=== PATIENT | female | born 1945 | race Caucasian/White ===

== ENCOUNTER 2024-02-21 03:59 | Inpatient (IN) ==
--- NOTE | 2024-02-21 04:13 | Emergency Department Note ---
Impression & Plan Partial small bowel obstruction ED Provider Note CHIEF COMPLAINT: Abdominal pain HISTORY OF PRESENTING ILLNESS: This 79-year-old female patient presents to the emergency department with her for evaluation of left lower quadrant abdominal pain that started at 2 AM. She denies any vomiting or diarrhea, but does have some mild nausea. She denies any urinary symptoms. She rates her discomfort as 4/10. No history of previous similar pain. No history of kidney stones. No history of diverticulitis. Her heart rate was elevated initially, but she took a metoprolol at home with improvement of her heart rate. She denies any fevers. Denies any chest pain or SOB. Denies history of chronic abdominal pain. She has had an appendectomy, hysterectomy (still has cervix), and surgery on her urethra before. She is on Eliquis for Afib. REVIEW OF SYSTEMS: See HPI for pertinent positives and pertinent negatives. ALLERGIES: NKDA MEDICATIONS: Eliquis, metoprolol, Synthroid PAST MEDICAL HISTORY: Afib, hypothyroidism, hysterectomy, appendectomy, surgery on her urethra PHYSICAL EXAM: VITALS: Vitals are noted on the nurse's note and reviewed by myself. GENERAL: Non toxic, no acute distress, non-diaphoretic. SKIN: Capillary refill <2 sec. EYES: PERRLA. EOMI. Conjunctivae without injection, sclerae without icterus. NOSE: Patent without discharge. MOUTH: Mucous membranes moist. Uvula midline. Airway patent. NECK: Supple without nuchal rigidity. HEART: Regular rate and rhythm without murmurs gallops or rubs. LUNGS: Clear to auscultation bilaterally without wheezes, rales or rhonchi. No retractions or accessory muscle use. ABDOMEN: Positive bowel sounds x 4. Normal tympanic percussion. Soft, tender to palpation mainly left lower quadrant, but also mildly in the left upper quadrant. No flank tenderness. No CVA tenderness. No masses or organomegaly. Gao sign negative. No guarding or rebound tenderness. No focal RLQ tenderness. MUSCULOSKELETAL: No gross musculoskeletal defects. NEURO: Patient was alert and oriented. No focal neurological deficits. DIFFERENTIAL DIAGNOSIS: Differential diagnosis includes hepatitis, pancreatitis, cholecystitis, cholelithiasis, appendicitis, kidney stone, pyelonephritis, UTI, gastritis, gastroenteritis, mesenteric adenitis, obstruction, constipation, hernia, abdominal abscess, perforation, diverticulitis, IBD, ischemic colitis, abdominal aortic aneurysm, , ectopic , ovarian cyst, ovarian torsion, acute salpingitis, or others. ED COURSE AND MEDICAL DECISION MAKING: HISTORY FROM INDEPENDENT HISTORIAN: Additional history obtained from the patient's MEDICATIONS GIVEN: 500 mL normal saline solution bolus. Tylenol 1000 mg IV. Zofran 4 mg IV. Morphine 4 mg IV. MONITOR: Continuous property assessment monitor: Order was placed for continuous property assessment monitor. Patient was placed on the property assessment monitor and continuous pulse ox. Patient was noted to be in normal sinus rhythm at an initial rate of 84 bpm per my interpretation. INTERPRETATION OF LABS: I interpreted the labs with full lab results as below in the lab section of this note. Pertinent lab results discussed in the MDM section below. INTERPRETATION OF IMAGING: Imaging studies were interpreted by myself and read by radiology as per the imaging section of this note. CT scan of the abdomen pelvis with IV contrast showed prominent small bowel loops with a probable region of ileus within the pelvis or early partial small bowel obstruction. There are additional chronic changes as well. CONSULTATIONS: On-call hospitalist MDM SUMMARY: The patient was seen during a time of extreme volume and extreme acuity. Nursing triage protocols were initiated with IV lock, labs, and/or imaging studies conducted by protocol in the triage area. The patient was initially evaluated in a triage room and then re-evaluated once they were taken back to an exam room. The patient started with abrupt onset of abdominal pain and nausea. The patient was given 500 mL normal saline solution bolus, IV Tylenol, and IV Zofran with improvement of her symptoms. She required morphine 4 mg IV later on in the stay for additional pain control. White blood cell count elevated at 14.02. Hemoglobin normal at 14.6. Platelet count normal at 263. BUN elevated at 25 and glucose 108, but CMP without significant abnormalities. Lipase was normal. Urinalysis with 1+ ketones, 1+ blood, and 3-[address] scan of the abdomen pelvis with IV contrast showed prominent small bowel loops with a probable region of ileus within the pelvis or early partial small bowel obstruction. There are additional chronic changes as well. I had a meaningful discussion about this patient with Dr. Summers who agrees with my assessment and the treatment plan. The patient will need admitted for her partial small bowel obstruction. The patient is not vomiting and her nausea has resolved. I do not feel that NG tube is needed at this time in the ER. I spoke with the on-call hospitalist who agreed to admit the patient for further evaluation and treatment. Please refer to their dictation for further details. The patient's care was transferred in stable condition. DIAGNOSIS: Partial small bowel obstruction Past Med/Surg History Problem List (Updated 02/21/24 @ 23:04 by Aspen Henry PA-C) Partial small bowel obstruction (Acute) Nondisplaced fracture of fifth left metatarsal bone (Acute) Dehydration (Acute) Hypokalemia (Acute) Nausea vomiting and diarrhea (Acute) Vomiting and diarrhea (Acute) Family History Mother Heart disease Social History Smoking Status: Former smoker Hx Alcohol Use: Yes Alcohol type: wine Hx Substance Use: No Preferred Language: Uzbek Cylinder Grinder Required: No Beliefs That Will Affect Care: None Current Living Situation: Spouse Current Living Situation Comment: 2 story house Feels Safe at Home: Yes Assistive Devices: Glasses Assistive Devices Comment: reading glasses Allergies Allergies Allergy/AdvReac Type Severity Reaction Status Date / Time No Known Allergies Allergy Unverified 04/27/15 09:28 Home Meds Home Medications Medication Instructions Recorded Confirmed apixaban 5 mg tablet (Eliquis) 5 mg PO BID 02/21/24 02/21/24 levothyroxine 50 mcg tablet 50 mcg PO UD 02/21/24 02/21/24 (Synthroid) levothyroxine 75 mcg tablet 75 mcg PO UD 02/21/24 02/21/24 (Synthroid) metoprolol succinate 25 mg 12.5 mg PO DAILY 02/21/24 02/21/24 tablet,extended release 24 hr Results & Data (ED) Vital Signs Vital Signs - 24 hr 02/21/24 04:02 02/21/24 05:30 Temperature 36.8 C Temperature Source Temporal Artery Scan Pulse Rate 82 Pulse Rate [Apical] 83 Pulse Rhythm [Apical] Regular Pulse Strength [Apical] Normal Respiratory Rate 16 18 Respiratory Effort / Characteristics Non-Labored Non-Labored Spontaneous Respiratory Depth Normal Normal Respiratory Pattern Regular Regular Blood Pressure 160/94 H Blood Pressure [Right Arm] 160/100 H Blood Pressure Mean 116 Blood Pressure Mean [Right Arm] 120 Blood Pressure Position [Right Arm] Sitting Pulse Oximetry 98 98 Oxygen Delivery Method Room Air Room Air Sepsis Recent Fever Within 48 Hours No Sepsis New/Unexplained Change in Mental Status N/A Sepsis Action Taken by Nursing No Action Required Laboratory Data 02/21/24 04:38 02/21/24 04:38 Lab Results 02/21/24 Range/Units 04:38 WBC 14.02 H (4.8-10.8) K/ul RBC 4.64 (4.20-5.40) M/uL Hgb 14.6 (12.0-16.0) g/dl Hct 44.5 (37.0-47.0) % MCV 95.9 (80.0-100.0) fL MCH 31.5 (25.0-34.0) pg MCHC 32.8 (32.0-36.0) g/dL RDW Std Deviation 40.8 (36.4-46.3) fL RDW Coeff of Susy 11.7 (11.5-14.5) % Plt Count 263 (130-400) K/uL MPV 10.2 (9.4-12.4) fL Immature Gran % (Auto) 0.4 % Neut % (Auto) 50.2 % Lymph % (Auto) 39.7 % Sibley % (Auto) 7.8 % Eos % (Auto) 1.3 % Baso % (Auto) 0.6 % Neut # (Auto) 7.04 H (1.40-6.50) K/uL Lymph # (Auto) 5.57 H (1.20-3.40) K/uL Sibley # (Auto) 1.09 H (0.11-0.59) K/uL Eos # (Auto) 0.18 (0.00-0.50) K/uL Baso # (Auto) 0.09 (0.00-0.20) K/uL Immature Gran # (Auto) 0.05 (0.01-0.20) K/uL RBC Morphology Unremarkable Sodium 138 (136-145) mmol/L Potassium 3.7 (3.5-5.1) mmol/L Chloride 102 (98-107) mmol/L Carbon Dioxide 27 (21-32) mmol/L Anion Gap 9 (3-11) BUN 25 H (6-23) mg/dl Creatinine 0.89 (0.6-1.2) mg/dl Est Cr Clr Drug Dosing 51.5 ml/min eGFR 66.32 BUN/Creatinine Ratio 28.1 H (10-20) Glucose 108 H (70-99(Fasting)) mg/dl Calcium 10.3 (8.6-10.3) mg/dl Total Bilirubin 0.6 (0.2-1.0) mg/dl AST 17 (13-39) U/L ALT 12 (7-52) U/L Alkaline Phosphatase 51 (34-104) U/L Total Protein 8.4 H (6.0-8.3) gm/dl Albumin 4.8 (3.4-5.0) gm/dl Globulin 3.6 (2.5-4.0) gm/dl Albumin/Globulin Ratio 1.3 (0.9-2) Lipase 45 (11-82) U/L Administered Medications Heparin Sodium (Porcine) (Heparin Sod 5,000 Unit/0.5 Ml Vial) 5,000 units SQ Q12 [facility] Stop: 03/22/24 20:59 Last Admin: 02/21/24 21:05 Dose: Not Given Documented By: KJP Lactated Ringer's (Lr) 1,000 mls @ 75 mls/hr IV .[id number] [facility] Stop: 03/22/24 11:12 Last Admin: 02/21/24 11:51 Dose: 75 mls/hr Documented By: ORLYN Acetaminophen (Ofirmev) 1,000 mg in 100 mls @ 400 mls/hr IV Q8H PRN PRN Reason: Pain or Fever Stop: 02/24/24 11:12 Last Infusion: 02/21/24 18:23 Dose: Infused Documented By: Admin: 02/21/24 17:38 Dose: 400 mls/hr Documented By: BS Levothyroxine Sodium (Levothyroxine Sodium 75 Mcg Tablet) 75 mcg PO [id number] [facility] Stop: 03/22/24 11:59 Last Admin: 02/21/24 12:33 Dose: Not Given Documented By: MMN Metoprolol Succinate (Metoprolol Succ 25mg Ext Rel Tab) 12.5 mg PO DAILY [facility] Stop: 03/22/24 11:12 Last Admin: 02/21/24 12:33 Dose: Not Given Documented By: MMN Morphine Sulfate (Morphine Sulfate 2 Mg/Ml Carp) 2 mg IV Q4H PRN PRN Reason: Mod-Sev Pain (Scale 4-10) Stop: 03/06/24 11:12 Last Admin: 02/21/24 21:03 Dose: 2 mg Documented By: Admin: 02/21/24 11:41 Dose: 2 mg Documented By: JOLLY Ondansetron HCl (Ondansetron Inj 2 Mg/Ml 2 Ml Vial) 4 mg IV Q6H PRN PRN Reason: Nausea Stop: 03/22/24 11:12 Last Admin: 02/21/24 21:03 Dose: 4 mg Documented By: Admin: 02/21/24 11:41 Dose: 4 mg Documented By: JOLLY Discontinued Medications Sodium Chloride (Nss) 500 mls @ 999 mls/hr IV .Q31M ONE Stop: 02/21/24 04:55 Last Infusion: 02/21/24 05:44 Dose: Infused Documented By: Admin: 02/21/24 04:38 Dose: 999 mls/hr Documented By: SHARON Acetaminophen (Ofirmev) 1,000 mg in 100 mls @ 400 mls/hr IV NOW STA Stop: 02/21/24 04:39 Last Infusion: 02/21/24 05:44 Dose: Infused Documented By: Admin: 02/21/24 04:38 Dose: 400 mls/hr Documented By: SHARON Promethazine HCl (Phenergan) 6.25 mg in 50.25 mls @ 201 mls/hr IV NOW ONE Stop: 02/21/24 15:12 Last Infusion: 02/21/24 16:53 Dose: Infused Documented By: Admin: 02/21/24 16:08 Dose: 201 mls/hr Documented By: KELTON Ioversol (Optiray 320 100ml) 93 ml IV ONCE ONE Stop: 02/21/24 05:25 Last Admin: 02/21/24 05:24 Dose: 93 ml Documented By: MADAY Morphine Sulfate (Morphine Sulfate 4 Mg/Ml 1 Ml Carp\Vial) 4 mg IV NOW STA Stop: 02/21/24 06:07 Last Admin: 02/21/24 06:25 Dose: 4 mg Documented By: TRINA Ondansetron HCl (Ondansetron Inj 2 Mg/Ml 2 Ml Vial) 4 mg IV NOW STA Stop: 02/21/24 04:26 Last Admin: 02/21/24 04:38 Dose: 4 mg Documented By: SHARON Imaging Data Radiologist's Impression: Abdomen/Pelvis CT 02/21/24 04:09 Exam(s): CT ABDOMEN + PELVIS With Contrast IV Amt: 93 ml opti 320 EXAM: CT Abdomen and Pelvis With Intravenous Contrast CLINICAL HISTORY: Reason for exam: LLQ pain, diverticulitis. TECHNIQUE: Axial computed tomography images of the abdomen and pelvis with intravenous contrast. CTDI is 14.07 mGy and DLP is 644.37 mGy-cm. Automated exposure control was utilized for the study. A dose lowering technique was utilized adhering to the principles of ALARA. CONTRAST: Patient received 93 ml opti 320 of IV contrast COMPARISON: No relevant prior studies available. FINDINGS: Lung bases: Surgical materials demonstrate lung the anterior/ventral abdominal wall. No consolidation. Heart: There is tiny pericardial effusion. ABDOMEN: Liver: Unremarkable. No mass. Gallbladder and bile ducts: Unremarkable. No calcified stones. No ductal dilation. Pancreas: Unremarkable. No mass. No ductal dilation. Spleen: Unremarkable. No splenomegaly. Adrenals: Unremarkable. No mass. Kidneys and ureters: Unremarkable. No solid mass. No hydronephrosis. Stomach and bowel: There is redundant colon. No findings to suggest significant inflammation within it. A few prominent fluid-filled small bowel loops are demonstrated within the pelvis. No obstruction. No mucosal thickening. PELVIS: Surgical change Appendix: No findings to suggest acute appendicitis. Bladder: Unremarkable. No mass. Reproductive: Postsurgical change ABDOMEN and PELVIS: Intraperitoneal space: Unremarkable. No free air. No significant fluid collection. Bones/joints: No acute fracture. No dislocation. Soft tissues: Unremarkable. Vasculature: There is some mild calcific atherosclerotic vascular disease. No abdominal aortic aneurysm. Lymph nodes: Unremarkable. No enlarged lymph nodes. IMPRESSION: Some prominent small bowel loops as described probable region of ileus within the pelvis early or partial small bowel obstruction not entirely excluded additional chronic change. Electronically signed by: Dago Cooper MD 02/21/24 07:31 AM Discharge Plan Visit Data Chief Complaint: Abdominal Pain Stated Complaint: ABD PAIN,HIGH HEART RATE ED Provider: Shelby Summers ED Midlevel Provider: Aspen Henry Discharge Problem: Partial small bowel obstruction Patient Disposition: Admitted As Inpatient Condition: Good Discharge Instructions Interventions: ED Discharge Assessment Last Done: 02/21/24 11:14
[2024-02-21] MEDS: SODIUM CHLORIDE 0.9% 500 ML IV ONE (04:38)
[2024-02-21] MEDS: ONDANSETRON INJ 2 MG/ML 2 ML VIAL IV STA (04:38)
[2024-02-21] MEDS: ACETAMINOPHEN 1,000 MG/100 ML VIAL IV STA (04:38)
[2024-02-21 04:50] LABS: Hematocrit (blood only) 44.5 % (37.0-47.0); Hemoglobin 14.6 g/dl (12.0-16.0); Mean Corpuscular Hemoglobin 31.5 pg (25.0-34.0); Mean Corpuscular Hgb Conc 32.8 g/dL (32.0-36.0); Mean Corpuscular Volume 95.9 fL (80.0-100.0); Mean Platelet Volume 10.2 fL (9.4-12.4); Platelet Count 263 K/uL (130-400); RDW Coefficient of Variation 11.7 % (11.5-14.5); RDW Standard Deviation 40.8 fL (36.4-46.3); Red Blood Count 4.64 M/uL (4.20-5.40); White Blood Count 14.02 K/ul (4.8-10.8)
[2024-02-21 05:09] LABS: Albumin Globulin Ratio 1.3 (0.9-2); Albumin Level 4.8 gm/dl (3.4-5.0); BUN Creatinine Ratio 28.1 (10-20); Bilirubin,Total 0.6 mg/dl (0.2-1.0); Calcium 10.3 mg/dl (8.6-10.3); Creatinine Clr Calc Pharmacy 51.5 ml/min; Globulin 3.6 gm/dl (2.5-4.0); Potassium 3.7 mmol/L (3.5-5.1); Total Protein 8.4 gm/dl (6.0-8.3)
[2024-02-21 05:16] LABS: Basophils # (auto) 0.09 K/uL (0.00-0.20); Basophils % (auto) 0.6 %; Eosinophils # (auto) 0.18 K/uL (0.00-0.50); Eosinophils % (auto) 1.3 %; Immature Granulocytes # (auto) 0.05 K/uL (0.01-0.20); Immature Granulocytes % (auto) 0.4 %; Lymphocytes # (auto) 5.57 K/uL (1.20-3.40); Lymphocytes % (auto) 39.7 %; Monocytes # (auto) 1.09 K/uL (0.11-0.59); Monocytes % (auto) 7.8 %; Neutrophils # (auto) 7.04 K/uL (1.40-6.50); Neutrophils % (auto) 50.2 %; RBC Morphology Unremarkable
[2024-02-21] MEDS: OPTIRAY 320 100ml IV ONE (05:24)
--- OUTSIDE RECORDS SUMMARY | 2024-02-21 05:28 | External Medical Summary | Summary of Care ---
Author Name Unknown Organization [facility] Address [address] [place] [address] Phone [phone] Care Team Providers Care Special Trackwork Blacksmith Name Role Phone Ant Hollis MD Primary Care Provider + Reason for Visit * Reason Comments Follow Up 6 month follow up Encounter Details Date Type Department Care Team (Late st Contact Info) Description 02/13/2024 8:30 AM EDT Office Visit Cardiology, [facility] [address] [facility] [address] [facility] [address] Brendan Diez MD [address] [place] [address] Paroxysmal atrial fibrillation (HCC)* Allergies Active Allergy Reactions Criticality Noted Date Comments Pollen Other (Please comment) 01/15/2017 Sneezing, congestion documented as of this encounter (statuses as of 02/13/2024) Medications Medication Sig Dispensed Refills Start Date End Date Status Cholecalciferol (VITAMIN D3) 50 MCG (1999) Tablet Take 1 Tablet by mouth in the morning. 02/17/2019 Active Eliquis 5 MG Oral Tablet (Apixaban)Indications :PAF (paroxysmal atrial fibrillation) (HCC) TAKE 1 TABLET BY MOUTH IN THE MORNING AND 1 TABLET BEFORE BEDTIME 180 Tablet 3 04/11/2023 Active Metoprolol Succinate ER 25 MG Oral Tablet Extended Release 24 Hour (Toprol XL) Take 0.5 Tablets by mouth in the morning. 45 Tablet 3 04/24/2023 Active Synthroid 50 MCG Oral TabletIndications:Acq uired hypothyroidism TAKE 1 TABLET BY MOUTH FRIDAY, FRIDAY, AND FRIDAY AT LEAST 30 MINUTES PRIOR TO BREAKFAST OR OTHER MEDS 39 Tablet 3 10/20/2023 Active Synthroid 75 MCG Oral TabletIndications:Acq uired hypothyroidism TAKE 1 TABLET BY MOUTH EVERY FRIDAY, FRIDAY, FRIDAY AND FRIDAY AT LEAST 30 MIN PRIOR TO BREAKFAST OR OTHER MEDS 48 Tablet 3 10/20/2023 Active documented as of this encounter (statuses as of 02/13/2024) Active Problems Problem Noted Date Diagnosed Date PAF (paroxysmal atrial fibrillation) 03/25/2023 Mild mitral regurgitation 12/15/2022 Mild tricuspid regurgitation 05/08/2021 Aortic valve sclerosis 05/08/2021 Paroxysmal SVT (supraventricular tachycardia) Mixed hyperlipidemia 06/07/2020 Hx of nonmelanoma skin cancer 09/21/2018 Overview: BCC midchest 09/2012, SCCIS R cunningham 09/2017 Elevated ferritin 08/07/2018 High risk for fracture due to osteoporosis by DE XA scan 03/11/2017 Hx of atypical nevus 12/04/2016 FH: hemochromatosis 02/09/2016 Hypothyroidism documented as of this encounter (statuses as of 02/13/2024) Resolved Problems Problem Noted Date Diagnosed Date Resolved Date Stress due to illness of family member 06/04/2022 06/18/2023 Alveolar emphysema of lung 05/31/2021 0 06/04/2022 Chronic right-sided heart failure 05/31/2021 06/04/2022 Pulmonary hypertension 12/05/202006/04 Osteopenia of multiple sites 12/12/2016 08/14/2017 Benign neoplasm of colon Overview: adenomatous polyp, sees GI in [place] Other specified disorders of urethra 08/24/2018 Overview: curved course - h/o difficulty catherizations d/t this abnormality documented as of this encounter (statuses as of 02/13/2024) Immunizations Name Administration Dates Next Due COVID-19 mRNA, LNP-s, No Pre serve, 2-Dose Series (Moderna) 07/13/2020,06/14/2020 COVID-19, LNP-s, No Preserve , Danny-sucrose, Ages 12+ (Pfizer) 02/06/2022 COVID-19, mRNA, LNP-s, PF, B ooster, 100mcg/0.5mg (Moderna) 10/03/2021,03/17/2021 H1N1 2009 Influenza, IM 07/13/2009 HEP A - Hepatitis A (Adult > 18 yrs) 03/04/2016 PPD 06/05/2015 Pneumococcal Conjugate Vacc, 13 Valent (Prevnar) 02/07/2015 Pneumococcal Polysaccharide PPV23 (Pneumovax) 02/26/2011 Season Influenza, Quad, PF, Adjuvanted, 65+ Yrs, IM (FLUAD) 01/31/2020 Seasonal Influenza Virus Vac cine, Unspecified Formulation 02/13/2021,02/25/2019,02/20/2018,01/18,02/09/2016,02/07/2015,02/03/20 14,02/18/2013,02/18/2012,02/26/2011,1 ,02/16/2009 Seasonal Influenza, PF, 6 M & above, IM , (FluLaval or Fluzone) 02/20/2018,02/13/2017 Seasonal Influenza, Quadriva lent Hd (Fluzone Hd) 01/29/2023,02/04/2022,02/13/2021 Seasonal Influenza, Quadriva lent, No Preserve, IM 02/09/2016 Seasonal Influenza, Trivalen t, (IIV3), with Preserv, (Fluzone) 02/07/2015,02/02/2014,02/18/2013,06/2011,02/26/2011,02/20/2010,02/17/20 09 02/18/2014 Seasonal Influenza, Trivalen t, Adjuvanted, 65+ YRS, PF, (Fluad) 02/25/2019 TD - Tetanus/Diptheria (ADULT) 08/27/2018 TDAP, Age 7 and older, IM (Adacel) 06/19/2008 Varicella Zoster Vaccine (Adult) 04/28/2009 Zoster Vaccine Recombinant (Shingrix) 10/27/2019 ,07/01/2019,04/28/2009 documented as of this encounter Social History Tobacco Use Types Packs/Day Years Used Date Smoking Tobacco: Former Cigarettes 0.1 15 1 7 - 1981 Smokeless Tobacco: Never Comments:smoked only sociall y- on weekends for about 10-15 years Alcohol Use Standard Drinks/Week Comments Yes 7 (1 standard drink = 0.6 oz pur e alcohol) 1 glass wine/daily PHQ-2 Answer Date Recorded PHQ Adult Total Score 0 06/18/2023 Hunger Vital Sign Answer Date Recorded Within the past 12 months, y ou worried that your food would run out before you got the money to buy more. Never true 04/27/20 20 Within the past 12 months, t he food you bought just didn't last and you didn't have money to get more. Never true 04/27/2020 Utilities Answer Date Recorded Do you have trouble paying y our heating, water, or electric bill? (Adult - for ages 18 years and over) Not on file 11/04/2023 Is your family able to pay t he heat, water, or electric bill? (Household - for ages 0-17 years) Not on file 11/04/2023 Does your family have access to good internet? (Household - for ages 0-17 years) Not on file 11/04/2023 Social Connections Answer Date Recorded How often do you feel lonely or isolated from those around you? (Adult - for ages 18 years and over) Not on file 11/04/2023 Sex and Gender Information Value Date Recorded Sex Assigned at Female 09/16/2018 3:52 PM EDT Gender Identity Female 09/16/2018 3:52 PM EDT Sexual Orientation Straight 09/16/2018 3 :52 PM EDT Job Start Date Occupation Industry Not on file Not on file Not on file documented as of this encounter Last Filed Vital Signs Vital Sign [place] Time Taken Comments Blood Pressure 162/92 02/13/2024 8:43 AM EDT Pulse 72 02/13/2024 8:43 AM EDT Temperature - - Respiratory Rate 16 02/13/2024 8:43 AM EDT Oxygen Saturation - - Inhaled Oxygen Concentration - - Weight 64.1 kg (141 lb 6.4 oz) 02/13/2024 8:43 A M EDT Height - - Body Mass Index 21.19 11/24/2023 1:00 PM EDT documented in this encounter Progress Notes * Brendan Diez MD - 02/13/2024 8:30 AM EDT 02/13/2024 Cardiology Follow Up Referring Provider: PCP: [place] [address] Chief Complaint: Follow-up paroxysmal atrial fibrillation SUBJECTIVE: Pina Broderick is a 78 year old year old female with ongoing cardiac issues Paroxysmal atrial fibrillation Mild MR, TR Hypothyroidism Patient presents today in routine follow-up generally has been doing well. Not aware of any sense of tachy palpitations. No neurologic events. No dizziness lightheadedness syncope or near syncope. Nochest pain or shortness of breath. Still active without limitation. No bleeding difficulties on anticoagulation. A Complete Review of Systems is as stated above or negative. Patient Active Problem List Diagnosis Hypothyroidism FH: hemochromatosis Hx of atypical nevus High risk for fracture due to osteoporosis by DEXA scan Elevated ferritin Hx of nonmelanoma skin cancer Paroxysmal SVT (supraventricular tachycardia) (HCC) Mixed hyperlipidemia Mild tricuspid regurgitation Aortic valve sclerosis Mild mitral regurgitation PAF (paroxysmal atrial fibrillation) (HCC) Review of patient's allergies indicates: Allergen Reactions Pollen Other (Please comment) Sneezing, congestion Current Outpatient Medications Medication Sig Dispense Refill Cholecalciferol (VITAMIN D3) 50 MCG (1999 UT) Tablet Take 1 Tablet by mouth in the morning. Eliquis 5 MG Oral Tablet (Apixaban) TAKE 1 TABLET BY MOUTH IN THE MORNING AND 1 TABLET BEFORE BEDTIME 180 Tablet 3 Metoprolol Succinate ER 25 MG Oral Tablet Extended Release 24 Hour (Toprol XL) Take 0.5 Tablets by mouth in the morning. 45 Tablet 3 Synthroid 50 MCG Oral Tablet TAKE 1 TABLET BY MOUTH FRIDAY, FRIDAY, AND FRIDAY AT LEAST 30 MINUTES PRIOR TO BREAKFAST OR OTHER MEDS 39 Tablet 3 Synthroid 75 MCG Oral Tablet TAKE 1 TABLET BY MOUTH EVERY FRIDAY, FRIDAY, FRIDAY AND FRIDAY ATLEAST 30 MIN PRIOR TO BREAKFAST OR OTHER MEDS 48 Tablet 3 No current facility-administered medications for this visit. OBJECTIVE/PHYSICAL EXAMINATION: BP 162/92 | Pulse 72 | Resp 16 | Wt 64.1 kg (141 lb 6.4 oz) | BMI 21.19 kg/m | BSA 1.76 m Repeat blood pressure 134/80 equal in both arms General: Age appropriate in no acute distress Head: normocephalic, no masses, lesions, tenderness or abnormalities Eyes: conjunctiva are pink and non-injected, sclera clear Throat: clear Nares: without discharge Neck: supple, no adenopathy, normal jugular venous pulse, no hepatojugular reflux, no carotid bruits Chest: normal shape and normal respiratory effort Lungs: clear to auscultation and percussion Cardiac Exam: - regular rate & rhythm, no murmur, gallop or rub - normal S-1, normal S-2 Abdomen: abdomen soft, non-tender, no abnormal masses, no hepatosplenomegaly, no abdominal bruit, no femoral bruit Musculoskeletal: no gait disturbance, no joint inflammation, no deforming arthritis Extremities: no edema, no cyanosis, pulses intact 2+/4 Neuro: grossly normal exam Data: EKG performed today, 02/13/2024 , and reviewed personally : Normal sinus rhythm with normal tracing, rate 70 beats per minute Lipid Panel Results: Results for orders placed or performed in visit on 07/26/10 LIPID PANEL Result Value Ref Range HOURS FASTING 12 hours Triglycerides 74 60 - 245 mg/dL Cholesterol 261 (H) <200 mg/dL HDL Cholesterol 101 (H) 40 - 59 mg/dL Cholesterol-HDL Ratio 2.6 LDL Cholesterol 145 (H) 0 - 129 mg/dL Results for orders placed or performed in visit on 06/04/23 LIPID PANEL WITH DIRECT LDL IF TG IS HIGH Result Value Ref Range Triglycerides 96 <=174 mg/dL Cholesterol 214 (H) <200 mg/dL HDL Cholesterol 73 >49 mg/dL Non-HDL Cholesterol 141 <=159 mg/dL LDL Cholesterol 122 <=129 mg/dL Echo report reviewed from November 2022: Interpretation Summary The qualitative LV ejection fraction is 55-59% (normal). The left ventricular diastolic function is mildly abnormal (grade I). Mild aortic valve sclerosis is present. Mild mitral regurgitation is present. Mild tricuspid regurgitation is present. The estimated pulmonary artery systolic pressure is 40 mm Hg. Trivial circumferential pericardial effusion with mild organization. Cardiac tamponade is absent. Compared to prior study of 06/19/2021, there is no significant change. ASSESSMENT: 78 year old year old female Initially evaluated for symptoms of acute lightheadedness, question presyncope and mental status changes add an event. Episode resolved without intervention. Subsequent event monitors demonstrated atrial fibrillation, paroxysmal Patient on low-dose beta-gee and anticoagulation with Eliquis PLAN: 1. Paroxysmal atrial fibrillation: Discussed mechanism and treatment in detail with patient. ZIO Patch event monitors reviewed which did demonstrate atrial fibrillation. Currently doing well without symptomatic recurrence. Wears heart rate monitor watch in heart rates generally within good range without tachy or Sean arrhythmias. Feels well while exercise Discussed risk for stroke with patient with at least chads Vasc score of 3 -4 representing a 4% peryear risk of stroke off anticoagulation Recommendations: Continue metoprolol succinate low-dose 12.5 mg per day Continue anticoagulation with Eliquis 5 mg twice per day Patient to promptly report symptomatic tachycardia or sustained bradycardia DISPOSITION: Return 6 months Brendan Diez MD Cardiology, [address] [address] documented in this encounter Nursing Notes * Sofie Muñiz CMA - 02/13/2024 8:37 AM EDT Examination Room: Name: Pina Broderick Date of : (1945). Reason for Visit: 6 month return Interim Hospitalization(s): denies Problems/Concerns: Does not like taking eliquis and wondering if it's necessary, d/t the short duration of afib in Zio reports. Chest Pain/SOB: denies [facility] Discussed: Yes [facility] is a way you can talk to your provider online through e-mail. Would you like to sign up? I can activate it for you? ALREADY ACTIVE Patient was instructed to not get up on the exam table until directed and assisted by their provider; patient is to remain seated in the chair/ wheelchair/ exam table for fall prevention and safety reasons. Patient is aware to have assistance to step down off exam table with personnel. Patient voiced full comprehension of instructions. documented in this encounter Miscellaneous Notes * Addendum Note - John Black CMA - 02/13/2024 9:46 AM EDTAddended by: JOHN BLACK on: 02/13/2024 09:46 AM Modules accepted: Orders documented in this encounter Plan of Treatment Upcoming Encounters Date Type Department Care Team (Late st Contact Info) Description 02/17/2024 2:40 PM EDT Office Visit General Internal Medicine [facility] [address] [place] [address] Ant Hollis MD [address] [place] [address] 03/22/2024 2:00 PM EST Office Visit Dermatology [facility] [address] [place] [address] Ant Hernandez MD [address] [place] [place] [address] 04/26/2024 9:30 AM EST Office Visit [facility] [address] [facility] [address] Asmita Snyder [facility] [address] [facility] [place] [address] 06/07/2024 11:00 AM EST Office Visit Hematology/Oncology [facility] [address] [place] [id number] Kaykay Pires MD [address] [facility] [address] [place] [address] 09/23/2024 11:30 AM EDT Office Visit Otolaryngology [facility] [address] [place] [address] Mauro Thornton PA-C [address] [place] [address] Scheduled Orders Name Type Priority Associated Diagnoses Orde r Schedule EKG EKG Routine Paroxysmal atrial fibrillation (HCC) Expected: 02/13/2024 (Approximate), Expires: 03/14/2025 Health Maintenance Due Date Last Done Comments Adult Wellness Visit 02/20/2012 *BISPHONATE OR OTHER ACCEPTABLE MEDICATION NEEDED FOR OSTEOPOROSIS (REFER TO SMARTSET #1146) 08/26/2018 DXA Scan 06/05/2023 06/05/2021, 03/19, 03/10/2017, Additional history exists COVID-19 Vaccine ( season) 2024 02/06/2022, 10/03/2021, 03/17/2021, Additional history exists Influenza Vaccine (FLU shot) (#1) 2024 01/29/2023, 02/04/2022, 02/13/2021, Additional history exists TSH 06/04/2024 06/04/2023, 09/16, 05/27/2022, Additional history exists Depression Screening 06/18/2024 06/18/2023 DTap/Tdap Vaccines (3 - Td or Tdap) 08/27/2028 08/27/2018, 06/19/2008 Pneumococcal Vaccine: 65+ Years Completed 02/07/2015, 02/26/2011 Zoster Vaccines Completed 10/27/2019, 06/19, 04/28/2009, Additional history exists Colonoscopy Discontinued 03/17/2023, 02/18, 05/09/2017, Additional history exists RETIRED - COLONOSCOPY-EVERY 5 YRS AGES 18-100 Discontinued 03/17/2023, 03/17/2023, 05/09/2017, Additional history exists VITAMIN D LEVEL ONCE IN A LIFETIME-USE SMARTSET# 16187 Completed 06/04/2023, 05/27/2022, 06/04/2021, Additional history exists HPV (Gardasil) Vaccine Aged Out No lo nger eligible based on patient's age to complete this topic Hepatitis B Vaccine Aged Out No longe r eligible based on patient's age to complete this topic MENINGOCOCCAL (MENACTRA/MENVEO) Aged Out No longer eligible based on patient's age to complete this topic documented as of this encounter Medical Devices Implanted Type Area Date Puller Device Identifier Shelf Expiration Date Model / Serial / Lot Envista Toric [id number] Se+17.5 Cyl 1.25 Implanted:Qty: 1 on 07/06/2020 by Nader Valdivia MD at OR [facility] [place] [facility] Left: Eye [employer] 08/16/2021 [id number] / [id number] / [id number] Toric 17.5 Implanted:Qty: 1 on 07/18/2020 by Nader Valdivia MD at OR [facility] [place] [facility] Right: Eye 08/16/2021 [id number] / [id number] / documented as of this encounter Visit Diagnoses Diagnosis Paroxysmal atrial fibrillation (HCC)- Primary Atrial fibrillation documented in this encounter Care Teams Special Trackwork Blacksmith Relationship Specialty Start Date End Date Ant Hollis MD [address] [place] [address] PCP - General Internal Medicine 02/09/16 documented as of this encounter"
--- OUTSIDE RECORDS SUMMARY | 2024-02-21 05:28 | External Medical Summary | Summary of Care ---
Author Name Unknown Organization [facility] Address [address] [place] [address] Phone [phone] Care Team Providers Care Flexographic Printing Machinist Name Role Phone Ant Fatiam MD Primary Care Provider + Reason for Visit * Reason Onset Date Comments Re-Check 6 month check up Medication Administration 02/17/2024 Flu an d/or Pneumo Inj Encounter Details Date Type Department Care Team (Late st Contact Info) Description 02/17/2024 2:40 PM EDT [facility] [address] [facility] [place] [address] Ant Fatima MD [address] [facility] [place] [id number] High risk for fracture due to osteoporosis by DEXA scan*; FH: hemochromatosis; Elevated ferritin; Acquired hypothyroidism; PAF (paroxysmal atrial fibrillation) (HCC); Paroxysmal SVT (supraventricular tachycardia) (HCC); Need for prophylactic vaccination and inoculation against influenza; Lymphocytosis; Mixed hyperlipidemia; Encounter for screening mammogram for breast cancer Allergies Active Allergy Reactions Criticality Noted Date Comments Pollen Other (Please comment) 01/15/2017 Sneezing, congestion documented as of this encounter (statuses as of 02/17/2024) Medications Medication Sig Dispensed Refills Start Date End Date Status Cholecalciferol (VITAMIN D3) 50 MCG (2000 UT) Tablet Take 1 Tablet by mouth [...] as of this encounter (statuses as of 02/17/2024) Active Problems Problem Noted Date Diagnosed Date PAF (paroxysmal atrial fibrillation) 03/25/2023 Mild mitral regurgitation 12/15/2022 Mild tricuspid regurgitation 05/08/2021 Aortic valve sclerosis 05/08/2021 Paroxysmal SVT (supraventricular tachycardia) Mixed hyperlipidemia 06/07/2020 Hx of nonmelanoma skin cancer 09/21/2018 Overview: [facility] 09[facility], [facility] R [place] 09/2017 Elevated ferritin 08/07/2018 High risk for fracture due to osteoporosis by DE XA scan 03/11/2017 Hx of atypical nevus 12/04/2016 FH: hemochromatosis 02/09/2016 Hypothyroidism documented as of this encounter (statuses as of 02/17/2024) Resolved Problems Problem Noted Date Diagnosed Date Resolved Date Stress due to illness of family member 06/04/2022 06/18/2023 Alveolar emphysema of lung 05/31/2021 0 06/04/2022 Chronic right-sided heart failure 05/31/2021 06/04/2022 Pulmonary hypertension 12/05/202006/04 Osteopenia of multiple sites 12/12/2016 08/14/2017 Benign neoplasm of colon Overview: adenomatous polyp, sees GI in [place] Other specified disorders of urethra 08/24/2018 Overview: curved course - h/o difficulty catherizations d/t this abnormality documented as of this encounter (statuses as of 02/17/2024) Immunizations Name Administration Dates Next Due COVID-19 [...] 65+ Yrs, IM (FLUAD) 01/31/2020 Seasonal Influenza Vac., MDV , IM, 0.5 mL (Fluzone) 02/07/2015,02/02/2014,02/18/2013,1006/2011,02/26/2011,02/20/2010,02/17/20 09 02/18/2014 Seasonal Influenza Virus Vac cine, Unspecified Formulation 02/13/2021,02/25/2019,02/20/2018,01/18,02/09/2016,02/07/2015,02/03/20 14,02/18/2013,02/18/2012,02/26/2011,1 ,02/16/2009 Seasonal Influenza, High Dos e, Trivalent, PF, IM (Fluzone HD) 02/17/2024 Seasonal Influenza, PF, 6 M & above, IM , (FluLaval or Fluzone) 02/20/2018,02/13/2017 Seasonal Influenza, Quadriva lent Hd (Fluzone Hd) 01/29/2023,02/04/2022,02/13/2021 Seasonal Influenza, Quadriva lent, No Preserve, IM 02/09/2016 Seasonal Influenza, Trivalen t, Adjuvanted, 65+ YRS, PF, (Fluad) 02/25/2019 TD - Tetanus/Diptheria (ADULT) 08/27/2018 TDAP, Age 7 and older, IM (Adacel) 06/19/2008 Varicella Zoster Vaccine (Adult) 04/28/2009 Zoster Vaccine Recombinant (Shingrix) 10/27/2019 ,07/01/2019,04/28/2009 documented as of this encounter Social History Tobacco Use Types Packs/Day Years Used Date Smoking Tobacco: Former Cigarettes 0.1 15 1 967 - 1981 Smokeless Tobacco: Never Tobacco Cessation:Counseling Given: Not Answered Comments:smoked only socially- on weekends for about 10-15 years Alcohol [...] 3:52 PM EDT Sexual Orientation Straight 09/16/2018 3: 52 PM EDT Job Start Date Occupation Industry Not on file Not on file Not on file documented as of this encounter Last Filed Vital Signs Vital Sign Reading Time Taken Comments Blood Pressure 120/78 02/17/2024 3:00 PM EDT Pulse 76 02/17/2024 2:33 PM EDT Temperature 37.1 C (98.7 F) 02/17/2024 2:33 PM ED T Respiratory Rate 16 02/17/2024 2:33 PM EDT Oxygen Saturation - - Inhaled Oxygen Concentration - - Weight 63.6 kg (140 lb 3.2 oz) 02/17/2024 2:33 P M EDT Height - - Body Mass Index 21.01 11/24/2023 1:00 PM EDT documented in this encounter Patient Instructions * Patient Instructions* Too Hernandez RN - 02/17/2024 2:35 PM EDT ~~PATIENT INSTRUCTIONS FOR FLU SHOT~~ Possible side effects of influenza vaccine, (flu shot), are usually mild and include: 1. Soreness or redness at injection site 2. Low grade fever 3. Body aches You may use Tylenol/Acetaminophen as needed for these symptoms. LET YOUR DOCTOR KNOW IMMEDIATELY IF YOU HAVE DIFFICULTY BREATHING OR SWALLOWING, EXPERIENCE ITCHINGOF FEET OR HANDS, HAVE SWELLING OF EYES, FACE OR INSIDE OF NOSE. Osteoporosis: Screening for Bone Loss The strength of bones is measured by their density (thickness). High bone density means bones are less likely to fracture. If you are at risk for bone loss, your healthcare provider may refer you forbone density testing. Bone Density Testing Bone density testing is safe, quick, easy, and painless. Testing can detect osteoporosis before a fracture happens. It can also predict the risk of future fractures. And testing can measure the response to treatment. There are two types of tests that you may have: Peripheral tests are used for screening. They measure density in the finger, wrist, knee, cunningham, or heel. A common peripheral test is the quantitative ultrasound (QUS). Central tests are used for diagnosis. They measure density in the hip or spine. The main centraltest is the dual energy x-ray absorptiometry (DXA). The DXA is the standard bone density test. Who Should Be Tested? All postmenopausal women under age 65, with one or more risk factors in addition to menopause. All women age 65 and older. Postmenopausal women with fractures. Women who are thinking about treatment for osteoporosis. Women who have been on hormone therapy for a long time. Men or women with certain medical conditions or who are taking certain medications (such as glucocorticoids or prednisone) for a long period. Common Testing Sites Any bone can fracture, but with osteoporosis some bones fracture more easily. These include bones in the spine, wrist, shoulder, and hip. Thats why bone density testing may be done at one or more of these sites. Understanding Your Results The results of your test may seem confusing at first. Dont be afraid to ask your provider to explain. Your bone mineral density (BMD) describes the thickness of the bone that was scanned. Your healthcare provider will compare your BMD with the BMD of young, healthy bone. The result is called a T-score. Bones remodel at different rates. So, a healthy T-score in the wrist doesnt mean the spine is also healthy. Thats why more than one site may be scanned. [id number] [facility], [address] [place] [address]. All rights reserved. This information is not intended as a substitute for professional medical care. Always follow your healthcare professional's instructions documented in this encounter Progress Notes * Ant Fatima MD - 02/17/2024 3:07 PM EDT Chief Complaint Patient presents with Re-Check 6 month check up Medication Administration Flu and/or Pneumo Inj SUBJECTIVE: Pina Broderick is a 78 year old female with PMH as below who presents for f/u hypothyroidism, paf, osteoporosis. No cp, sob, donnelly, feels wonderful. No n/v/d. Mood is good. Walks for exercise. 1 glass/day at most. Patient Active Problem List Diagnosis Hypothyroidism FH: hemochromatosis Hx of atypical nevus High risk for fracture due to osteoporosis by DEXA scan Elevated ferritin Hx of nonmelanoma skin cancer Paroxysmal SVT (supraventricular tachycardia) (HCC) Mixed hyperlipidemia Mild tricuspid regurgitation Aortic valve sclerosis Mild mitral regurgitation PAF (paroxysmal atrial fibrillation) (HCC) Current Outpatient Medications Medication Sig Dispense Refill Cholecalciferol (VITAMIN D3) 50 MCG (1999) Tablet [...] No current facility-administered medications for this visit. Review of patient's allergies indicates: Allergen Reactions Pollen Other (Please comment) Sneezing, congestion Health Maintenance Due Topic Date Due Adult Wellness Visit Never done *BISPHONATE OR OTHER ACCEPTABLE MEDICATION NEEDED FOR OSTEOPOROSIS (REFER TO SMARTSET #1146) Never done DXA Scan 06/05/2023 COVID-19 Vaccine ( season) 2024 ROS: CONSTITUTIONAL: No change in weight, No weakness, and No fevers, sweats, or chills EYE: No recent significant change in vision, No eye pain, redness, discharge, and No diplopia EARS: No ear pain, No drainage, No tinnitus or vertigo, and No recent change in hearing PULMONARY: No cough, sputum, or hemoptysis, No wheezing, No rales, No shortness of breath, and No recent change in breathing CARDIOVASCULAR: No chest pain, No shortness of breath, No dyspnea on exertion, No orthopnea, No paroxysmal nocturnal dyspnea, No edema, No palpitations, and No syncope GASTROINTESTINAL: No abdominal pain, No change in bowel habits, No significant heartburn, No significant change in appetite, No nausea, vomiting, diarrhea, or constipation, No hematemesis, No blood in stools or black tarry stools, No abdominal bloating or early satiety, and No dysphagia ALL OTHER SYSTEMS NEGATIVE I reviewed social, PMH, PSH, and family history and updated where needed. Social History Socioeconomic History Marital status: Spouse name: Not on file Number of children: 2 Years of education: Not on file Highest education level: Not on file Occupational History Occupation: retired Occupation: [employer] Tobacco Use Smoking status: Former Current packs/day: 0.00 Average packs/day: 0.1 packs/day for 15.0 years (1.5 ttl pk-yrs) Types: Cigarettes Start date: 1966 Quit date: 1981 Years since quittin.7 Smokeless tobacco: Never Tobacco comments: smoked only socially- on weekends for about 10-15 years Vaping Use Vaping status: Never Used Substance and Sexual Activity Alcohol use: Yes Alcohol/week: 7.0 standard drinks of alcohol Types: 7 5 oz of wine per week Comment: 1 glass wine/daily Drug use: No Sexual activity: Yes Partners: Female Other Topics Concern Not on file Social History Narrative No pets. No mold. Social Determinants of Health Financial Resource Strain: Not on file Food Insecurity: No Food Insecurity (04/27/2020) Hunger Vital Sign Worried About Running Out of Food in the Last Year: Never true Ran Out of Food in the Last Year: Never true Transportation Needs: Not on file Social Connections: Unknown (11/04/2023) Social Connections How often do you feel lonely or isolated from those around you? 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 - sees Derm for f/u Dyslipidemia, goal LDL below 160 at goal, not on meds - very high HDL High risk for fracture due to osteoporosis by DEXA scan 03/11/2017 Hypothyroidism Mild mitral regurgitation 12/15/2022 Mild tricuspid regurgitation 05/08/2021 Mixed hyperlipidemia 06/07/2020 Other specified disorders of urethra curved course - h/o difficulty catherizations d/t this abnormality Pulmonary arterial hypertension (HCC) Past Surgical History: Procedure Laterality Date COLONOSCOPY, DIAGNOSTIC (RECTUM) 07/24/2009 for f/u on polyps, next due in 07/2014 COLONOSCOPY, DIAGNOSTIC (RECTUM) 05/09/2017 normal bx/COLONOSCOPY FLEXIBLE PROXIMAL DIAGNOSTIC performed by Della Price DO at ENDOSCOPY [facility] COLONOSCOPY, DIAGNOSTIC (RECTUM) 03/17/2023 diverticulosis/hemorrhoids/COLONOSCOPY FLEXIBLE PROXIMAL DIAGNOSTIC performed by Fran Guardado MD at ENDOSCOPY [facility] EGD, FLEXIBLE, DIAGNOSTIC 05/09/2017 normal bx/ESOPHAGOGASTRODUODENOSCOPY (EGD), FLEXIBLE, TRANSORAL, DIAGNOSTIC performed by Della Price DO at ENDOSCOPY [facility] PARTIAL HYSTERECTOMY still has cervix REMOVE CATARACT, INSERT LENS PROSTH Left 07/06/2020 LEFT EXTRACAPSULAR CATARACT REMOVAL WITH INTRAOCULAR LENS performed by Nader Valdivia MD at OR [facility] REMOVE CATARACT, INSERT LENS PROSTH Right 07/18/2020 RIGHT EXTRACAPSULAR CATARACT REMOVAL WITH INTRAOCULAR LENS performed by Nader Valdivia MD at OR [facility] REVISION OF URINARY MEATUS age 36 - had urethral abnormlaity repaired UROLOGY SURGERY PROCEDURE NEC removed an age 15 - attachment between ubbilicus and bladder Family History Problem Relation Name Age of Onset Heart Disorder Mother later in life Liver cancer Father Hemochromatosis Father No Known Problems Sister Hemochromatosis Daughter Breast Cancer No significant family history OBJECTIVE: PHYSICAL EXAM: BP 120/78 | Pulse 76 | Temp 37.1 C (98.7 F) (Tympanic) | Resp 16 | Wt 63.6 kg (140 lb 3.2 oz) |BMI 21.01 kg/m | BSA 1.75 m General: alert, healthy, and no distress Head: Normocephalic, No masses, lesions, tenderness or abnormalities Eye Exam: conjunctiva are pink and non-injected, sclera clear Ears: External ears normal, Canals clear, TM's Normal Heart: regular rate & rhythm, no murmur, no gallops, PMI non-displaced, S-1 normal, and S-2 normal Lungs: normal respiratory rate and rhythm, lungs clear to auscultation Extremities: no edema, no clubbing, no cyanosis Neuro Exam: alert with fluent speech, gait normal Psych: normal affect, no flight of ideas or tangential thought, good eye contact, no pressured speech 02/13/24 cardiology: 1. Paroxysmal atrial fibrillation: Discussed mechanism and [...] promptly report symptomatic tachycardia or sustained bradycardia 11/24/23 heme: 78-year-old female with a past medical history significant for early dyslipidemia, hypothyroidism, mild mitral regurgitation, pulmonary hypertension and history of elevated ferritin referred for the evaluation of lymphocytosis. She had a COVID infection in April 2023 with mild symptoms. Since May of 2023 she has elevated lymphocyte count. She had flow cytometry done which revealed elevatedT-cell and B-cell lymphocytes most likely consistent with reactive changes. Discussed with the patient and in detail about diagnosis and reviewed all the available blood tests and flow cytometry result with. At this point the best option is to repeat her flow cytometry with CBC and CMP. As far as her counts are stable with no new symptoms, the best option is continue to monitor the patient clinically. After detailed discussion she agreed to proceed with requestedblood test. She also has a history of elevated ferritin level with normal transferrin saturation. She used to donate blood and ferritin level was normalized. Now currently she is on Eliquis because of the cardiovascular problem and possible episode of AFib and was told not to donate blood. HFE gene mutation test was negative. We will continue to monitor the patient clinically. ASSESSMENT: (M81.0) High risk for fracture due to osteoporosis by DEXA scan (primary encounter diagnosis) (Z83.49) FH: hemochromatosis (R79.89) Elevated ferritin (E03.9) Acquired hypothyroidism (I48.0) PAF (paroxysmal atrial fibrillation) (HCC) (I47.10) Paroxysmal SVT (supraventricular tachycardia) (HCC) (Z23) Need for prophylactic vaccination and inoculation against influenza (D72.820) Lymphocytosis (E78.2) Mixed hyperlipidemia (Z12.31) Encounter for screening mammogram for breast cancer PLAN: High risk for fracture due to osteoporosis by DEXA scan (Primary) - DEXA SCAN/BONE MINERAL AXIAL; Future; Expected date: 02/17/2024 - 25-HYDROXY VITAMIN D; Future; Expected date: 08/17/2024 Await dexa FH: hemochromatosis Follow labs Last ferritin normalized Elevated ferritin - IRON SCREEN, INCLUDING TIBC; Future; Expected date: 08/17/2024 - FERRITIN; Future; Expected date: 08/17/2024 - CBC WITH WBC DIFFERENTIAL; Future; Expected date: 08/17/2024 Acquired hypothyroidism - TSH; Future; Expected date: 08/17/2024 Cont levothyroxine PAF (paroxysmal atrial fibrillation) (HCC) Cont metoprolol, eliquis Paroxysmal SVT (supraventricular tachycardia) (HCC) Cont metoprolol Need for prophylactic vaccination and inoculation against influenza - INFLUENZA VAC., TRIVALENT, HD, PF, 65 AND ABOVE, 0.5 ML IM (FLUZONE HD) Lymphocytosis Normalized Appreciate heme aid Mixed hyperlipidemia - COMPREHENSIVE METABOLIC PANEL; Future; Expected date: 08/17/2024 - LIPID PANEL WITH DIRECT LDL IF TG IS HIGH; Future; Expected date: 08/17/2024 Recheck next labs Encounter for screening mammogram for breast cancer - MAMMOGRAM SCREENING ONESIMO BILATERAL; Future; Expected date: 07/17/2024 Follow Up: Return in about 6 months (around 08/17/2024), or if symptoms worsen or fail to improve, for Fasting Labs 2-5 Days Before Next Visit. | For: Fasting Labs 2-5 Days Before Next Visit Ant Fatima MD * Too Hernandez RN - 02/17/2024 2:35 PM EDT PRE - ADMINISTRATION DOCUMENTATION Are you experiencing any cold symptoms or fever? No Have you had Guillain-Tyrone Syndrome (an illness that causes paralysis) within the last 6 weeks? No Have you had the flu shot in the past? YES Have you ever had a reaction to the flu shot? No Too Hernandez RN, 02/17/2024 2:35 PM Immunization Administration Documentation Time Out Procedure Performed: Yes Patient Identified (Ask Name/Date of ): Yes Does the patient have a fever greater than 101 degrees today? No Patient allergic to latex? No VFC Stock: No Immunization(s) verified: Yes, Immunization Name: Flu, VIS Sheet(s) given: Yes Verified Side and Site: Yes Verified Shot(s) with Parent(s)/Patient: Yes Dexa scan ordered today. Provider aware. Too O David, RN documented in this encounter Nursing Notes * Too Hernandez RN - 02/17/2024 2:35 PM EDT Chief Complaint Patient presents with Re-Check 6 month check up documented in this encounter Plan of Treatment Upcoming Encounters Date Type Department Care Team (Late st Contact Info) Description 2024 2:30 PM EDT [place]iology, [address] [place] [address] 03/22/2024 2:00 PM EST Office Visit Dermatology [facility] [address] [facility] [place] [address] Ant Hernandez MD [address] [facility] [place] [address] 04/26/2024 9:30 AM EST Office Visit Audiology [facility] [address] [place] [address] Asmita Snyder Au.D. [address] [place] [address] 06/07/2024 11:00 AM EST Office Visit Hematology/Oncology [facility] [address] [place] [phone] Kaykay Pires MD [address] [facility] [place] [address] 09/23/2024 11:30 AM EDT Office Visit Otolaryngology [facility] [address] [place] [address] Mauro Thornton PA-C [address] [place] [address] 11/16/2024 2:40 PM EDT Office Visit General Internal Medicine [address] [place] [address] [place] [address] Ant Ftaima MD [address] [facility] [place] [address] Scheduled Orders Name Type Priority Associated Diagnoses Orde r Schedule DEXA SCAN/BONE MINERAL AXIAL Medical Imaging Routine High risk for fracture due to osteoporosis by DEXA scan Expected: 02/17/2024 (Approximate), Expires: 03/19/2025 COMPREHENSIVE METABOLIC PANEL Lab Routine Mixed hyperlipidemia Expected: 08/17/2024 (Approximate), Expires: 02/16/2025 LIPID PANEL WITH DIRECT LDL IF TG IS HIGH Lab Routine Mixed hyperlipidemia Expected: 08/17/2024, Expires: 02/16/2025 25-HYDROXY VITAMIN D Lab Routine High risk for fracture due to osteoporosis by DEXA scan Expected: 08/17/2024 (Approximate), Expires: 02/16/2025 IRON SCREEN, INCLUDING TIBC Lab Routine Elevated ferritin Expected: 08/17/2024 (Approximate), Expires: 02/16/2025 FERRITIN Lab Routine Elevated ferritin Expected: 08/17/2024 (Approximate), Expires: 02/16/2025 CBC WITH WBC DIFFERENTIAL Lab Routine Elevated ferritin Expected: 08/17/2024 (Approximate), Expires: 02/16/2025 TSH Lab Routine Acquired hypothyroidism Expected: 08/17/2024 (Approximate), Expires: 02/16/2025 MAMMOGRAM SCREENING ONESIMO BILATERAL Medical Imaging Routine Encounter for screening mammogram for breast cancer Expected: 07/17/2024, Expires: 03/19/2025 Health Maintenance Due Date Last Done Comments Adult Wellness Visit 02/20/2012 *BISPHONATE OR OTHER ACCEPTABLE MEDICATION NEEDED FOR OSTEOPOROSIS (REFER TO SMARTSET #1146) 08/26/2018 DXA Scan 06/05/2023 06/05/2021, 03/19, 03/10/2017, Additional history exists COVID-19 Vaccine ( season) 2024 02/06/2022, 10/03/2021, 03/17/2021, Additional history exists TSH 06/04/2024 06/04/2023, 09/16, [...] D LEVEL ONCE IN A LIFETIME-USE SMARTSET# [id number] Completed 06/04/2023, 05/27/2022, 06/04/2021, Additional history exists Influenza Vaccine (FLU shot) Completed 02/17/2024, 01/29/2023, 02/04/2022, Additional history exists HPV (Gardasil) Vaccine Aged Out No lo nger eligible based on patient's age to complete this topic Hepatitis B Vaccine Aged Out No longe r eligible based on patient's age to complete this topic MENINGOCOCCAL (MENACTRA/MENVEO) Aged Out No longer eligible based on patient's age to complete this topic documented as of this encounter Medical Devices Implanted Type Area Early Head Start Director Device Identifier Shelf Expiration Date Model / Serial / Lot Envista Toric [id number] Se+17.5 Cyl 1.25 Implanted:Qty: 1 on 07/06/2020 by Nader Valdivia MD at OR [facility] Left: Eye [employer] 08/16/2021 [id number] / [id number] / [id number] Toric 17.5 Implanted:Qty: 1 on 07/18/2020 by Nader Valdivia MD at OR [facility] Right: Eye 08/16/2021 [id number] / [id number] / documented as of this encounter Visit Diagnoses Diagnosis High risk for fracture due to osteoporosis by DEXA scan- Primary Osteoporosis, unspecified FH: hemochromatosis Family history of other endocrine and metabolic diseases Elevated ferritin Other abnormal blood chemistry Acquired hypothyroidism Unspecified hypothyroidism PAF (paroxysmal atrial fibrillation) (HCC) Atrial fibrillation Paroxysmal SVT (supraventricular tachycardia) (HCC) Paroxysmal supraventricular tachycardia Need for prophylactic vaccination and inoculation against influenza Lymphocytosis Lymphocytosis (symptomatic) Mixed hyperlipidemia Encounter for screening mammogram for breast cancer documented in this encounter Care Teams Flexographic Printing Machinist Relationship Specialty Start Date End Date Ant Fatima MD [address] [place] [address] PCP - General Internal Medicine 02/09/16 documented as of this encounter"
--- OUTSIDE RECORDS SUMMARY | 2024-02-21 05:28 | External Medical Summary | Summary of Care ---
Author Name Unknown Organization [facility] Address [address] [place] [address] Phone [phone] Care Team Providers Care Animal Ride Attendant Name Role Phone Ant Fatima MD Primary Care Provider + Reason for Visit * Reason Onset Date Comments Advice 10/09/2023 Encounter Details Date Type Department Care Team (Late st Contact Info) Description 10/09/2023 Telephone General Internal Medicine [facility] [place] [facility] [place] [address] Ant Fatima MD 200 [facility] [place] [address] Advice Allergies Active Allergy Reactions Criticality Noted Date Comments Pollen Other (Please comment) 01/15/2017 Sneezing, congestion documented as of this encounter (statuses as of 01/08/2024) Medications Medication Sig Dispensed Refills Start Date End Date Status Cholecalciferol (VITAMIN D3) 50 MCG (1999) Tablet Take 1 Tablet by mouth in the morning. 02/17/2019 Active Eliquis 5 MG Oral Tablet (Apixaban)Indication s:PAF (paroxysmal atrial fibrillation) (HCC) TAKE 1 TABLET BY MOUTH IN THE MORNING AND 1 TABLET BEFORE BEDTIME 180 Tablet 3 04/11/2023 Active Metoprolol Succinate ER 25 MG Oral Tablet Extended Release 24 Hour (Toprol XL) Take 0.5 Tablets by mouth in the morning. 45 Tablet 3 04/24/2023 Active documented as of this encounter (statuses as of 01/08/2024) Active Problems Problem Noted Date Diagnosed Date [...] as of this encounter (statuses as of 01/08/2024) Resolved Problems Problem Noted Date Diagnosed Date Resolved Date Stress due to illness of family member 06/04/2022 06/18/2023 Alveolar emphysema of lung 05/31/2021 0 06/04/2022 Chronic right-sided heart failure 05/31/2021 06/04/2022 Pulmonary hypertension 12/05/202006/04 Osteopenia of multiple sites 12/12/2016 08/14/2017 Benign neoplasm of colon Overview: adenomatous polyp, sees GI in [place] Other specified disorders of urethra 08/24/2018 Overview: curved course - h/o difficulty catherizations d/t this abnormality documented as of this encounter (statuses as of 01/08/2024) Immunizations Name Administration Dates Next Due COVID-19 [...] lent, No Preserve, IM 02/09/2016 Seasonal Influenza, Split, I IV3, With Preserve, Inj 02/07/2015,02/02/2014,02/18/2013,06/2011,02/26/2011,02/20/2010,02/17/20 09 02/18/2014 Seasonal Influenza, Trivalen t, Adjuvanted, 65+ yrs 02/25/2019 TD - Tetanus/Diptheria (ADULT) 08/27/2018 TDAP, Age 7 and older, IM (Adacel) 06/19/2008 Varicella Zoster Vaccine (Adult) 04/28/2009 Zoster Vaccine Recombinant (Shingrix) 10/27/2019 ,07/01/2019,04/28/2009 documented as of this encounter Social History Tobacco Use Types Packs/Day Years Used Date Smoking Tobacco: Former Cigarettes 0.1 15 1 967 - 1982 Smokeless Tobacco: Never Comments:smoked only sociall y- [...] on file documented as of this encounter Miscellaneous Notes * Telephone Encounter - Alyce Escoto LPN - 10/09/2023 2:12 PM EDT Patient calling with concerns of a rash: Rash- Type of rash is itchy, red, with little bumps. Rash location: Right side of neck from right ear lobe to collar bone. Rash condition is worsening/spreading Exposure: No known exposures Recent exposure: No known exposures Patient denies other symptoms No angioedema, oral swelling, respiratory distress, GI symptoms. No clear triggers. Patient denies all other symptoms Symptoms started 4 day(s) ago. What have you done or taken for this problem? Was using Cortisone but stopped because pt has upcoming blood work CBC and due to elevated lymphocytes. Cortisone was not effective. Is now using an analgesic cream to the rash to help with itching. No acute appointments available and will sent picture of rash site via [employer] messages. Pharmacy selected. Please advise. documented in this encounter Plan of Treatment Upcoming Encounters Date Type Department Care Team (Late st Contact Info) Description 01/23/2024 12:30 PM EDT Office Visit Audiology [facility] [address] [place] [address] Asmita Snyder Au.D. [address] [place] [address] 02/17/2024 2:40 PM EDT Office Visit General Internal Medicine [facility] [address] [place] [address] Ant Fatima MD 200 [facility] [place] [address] 03/01/2024 2:30 PM EDT Office Visit Dermatology [facility] [address] [place] [address] Ant Hernandez MD 200 [place] [address] 06/07/2024 11:00 AM EST Office Visit Hematology/Oncology [facility] [address] [place] [phone] Kaykay Pires MD 200 [place] [address] 07/07/2024 1:30 PM EST Office Visit Cardiology, [facility] [address] [place] [address] Brendan Diez MD [address] [place] [address] 09/23/2024 11:40 AM EDT Office Visit Otolaryngology [facility] [address] [place] [address] Mauro Thornton PA-C [address] [place] [address] Health Maintenance Due Date Last Done Comments Adult Wellness Visit 02/20/2012 *BISPHONATE OR OTHER ACCEPTABLE MEDICATION NEEDED FOR OSTEOPOROSIS (REFER TO SMARTSET #1146) 08/26/2018 COVID-19 Vaccine ( season) 2023 02/06/2022, 10/03/2021, 03/17/2021, Additional history exists DXA Scan 06/05/2023 06/05/2021, 03/19, 03/10/2017, Additional history exists Influenza Vaccine (FLU shot) (#1) 2024 01/29/2023, 02/04/2022, 02/13/2021, Additional history exists TSH 06/04/2024 06/04/2023, 09/16, 05/27/2022, Additional history exists Depression Screening 06/18/2024 06/18/2023 DTaP,Tdap,and Td Vaccines (3 - Td or Tdap) 08/27/2028 08/27/2018, 06/19/2008 Pneumococcal Vaccine: 65+ Years Completed 02/07/2015, 02/26/2011 Zoster Vaccines Completed 10/27/2019, 06/19, 04/28/2009, Additional history exists Colonoscopy Discontinued 03/17/2023, 02/18, 05/09/2017, Additional history exists RETIRED - COLONOSCOPY-EVERY 5 YRS AGES 18-100 Discontinued 03/17/2023, 03/17/2023, 05/09/2017, Additional history exists VITAMIN D LEVEL ONCE IN A LIFETIME-USE SMARTSET# [id number] Completed 06/04/2023, 05/27/2022, 06/04/2021, Additional history exists [...] this encounter Medical Devices Implanted Type Area Internal Investigator Device Identifier Shelf Expiration Date Model / Serial / Lot Envista Toric [id number] Se+17.5 Cyl 1.25 Implanted:Qty: 1 on 07/06/2020 by aNder Valdivia MD at OR [facility] Left: Eye [employer] 08/16/2021 [id number] / [id number] / [id number] Toric 17.5 Implanted:Qty: 1 on 07/18/2020 by Nader Valdivia MD at OR [facility] Right: Eye 08/16/2021 [id number] / [id number] / documented as of this encounter Care Teams Animal Ride Attendant Relationship Specialty Start Date End Date Ant Fatima MD [address] [place] [address] PCP - General Internal Medicine 02/09/16 documented as of this encounter
--- OUTSIDE RECORDS SUMMARY | 2024-02-21 05:28 | External Medical Summary | Summary of Care ---
Author Name Unknown Organization [facility] Address [address] [place] [address] Phone [phone] Care Team Providers Care Commercial Diver Name Role Phone Ant Fatima MD Primary Care Provider + Reason for Visit * Reason Onset Date Comments Appointment 12/16/2023 Encounter Details Date Type Department Care Team (Late st Contact Info) Description 12/16/2023 Telephone Otolaryngology [facility] [address] [place] [address] Services, Scheduling [address] [place] [address] Appointment Allergies Active Allergy Reactions Criticality Noted Date Comments Pollen Other (Please comment) 01/15/2017 Sneezing, congestion documented as of this encounter (statuses as of 12/17/2023) Medications Medication Sig Dispensed Refills Start Date [...] as of this encounter (statuses as of 12/17/2023) Active Problems Problem Noted Date Diagnosed Date PAF (paroxysmal atrial fibrillation) 03/25/2023 Mild mitral regurgitation 12/15/2022 Mild tricuspid regurgitation 05/08/2021 Aortic valve sclerosis 05/08/2021 Paroxysmal SVT (supraventricular tachycardia) Mixed hyperlipidemia 06/07/2020 Hx of nonmelanoma skin cancer 09/21/2018 [facility], [facility] 09/2017 Elevated ferritin 08/07/2018 High risk for fracture due to osteoporosis by DE XA scan 03/11/2017 Hx of atypical nevus 12/04/2016 FH: hemochromatosis 02/09/2016 Hypothyroidism documented as of this encounter (statuses as of 12/17/2023) Resolved Problems Problem Noted Date Diagnosed Date Resolved Date Stress due to illness of family member 06/04/2022 06/18/2023 Alveolar emphysema of lung 05/31/2021 0 06/04/2022 Chronic right-sided heart failure 05/31/2021 06/04/2022 Pulmonary hypertension 12/05/202006/04 Osteopenia of multiple sites 12/12/2016 08/14/2017 Benign neoplasm of colon Overview: adenomatous polyp, sees GI in [place] Other specified disorders of urethra 08/24/2018 Overview: curved course - h/o difficulty catherizations d/t this abnormality documented as of this encounter (statuses as of 12/17/2023) Immunizations Name Administration Dates Next Due COVID-19 [...] Influenza, Split, I IV3, With Preserve, Inj 02/07/2015,02/02/2014,02/18/2013,1006/2011,02/26/2011,02/20/2010,02/17/20 09 02/18/2014 Seasonal Influenza, Trivalen t, Adjuvanted, 65+ yrs 02/25/2019 TD - Tetanus/Diptheria (ADULT) 08/27/2018 TDAP, Age 7 and older, IM (Adacel) 06/19/2008 Varicella Zoster Vaccine (Adult) 04/28/2009 Zoster Vaccine Recombinant (Shingrix) 10/27/2019 ,07/01/2019,04/28/2009 documented as of this encounter Social History Tobacco Use Types Packs/Day Years Used Date Smoking Tobacco: Former Cigarettes 0.1 15 1 967 - 1981 Smokeless Tobacco: Never Comments:smoked only [...] encounter Miscellaneous Notes * Telephone Encounter - Imani Cohen OSA - 12/17/2023 1:02 PM EDT Pt has been scheduled. DELISA Lugo * Telephone Encounter - Clare Lee OSA - 12/16/2023 3:10 PM EDT Pt calling in stating she was supposed to have a one year hearing eval which would put her due in December. The soonest appointment is in April. Pt is asking for sooner. Please advise. documented in this encounter Plan of Treatment Upcoming Encounters Date Type Department Care Team (Late st Contact Info) Description 01/23/2024 12:30 PM EDT Office Visit Audiology [facility] 132 [facility] [place] [address] Asmita Snyder Au.D. [address] [place] [address] 02/17/2024 2:40 PM EDT Office Visit General Internal Medicine [facility] [address] [place] [address] Ant Fatima MD 200 [facility] [place] [address] 03/01/2024 2:30 PM EDT Office Visit Dermatology [facility] 200 [facility] [place] [address] Ant Hernandez MD [address] [place] [address] [place] [address] 06/07/2024 11:00 AM EST Office Visit Hematology/Oncology [facility] [address] [place] [address] Kaykay Pires MD 200 [facility] [place] [address] 07/07/2024 1:30 PM EST Office Visit Cardiology, [facility] 132 [facility] [place] [address] Brendan Diez MD 132 [facility] [place] [address] 09/23/2024 11:40 AM EDT Office Visit Otolaryngology [facility] [address] [place] [address] Mauro Thornton PA-C [address] [place] [address] Health Maintenance Due Date Last Done Comments *BISPHONATE OR OTHER ACCEPTABLE MEDICATION NEEDED FOR OSTEOPOROSIS (REFER TO SMARTSET #1146) 08/26/2018 COVID-19 Vaccine (2022- season) 2023 02/06/2022, 10/03/2021, 03/17/2021, Additional history exists DXA Scan 06/05/2023 06/05/2021, 03/19, 03/10/2017, Additional history exists Influenza Vaccine (FLU shot) (#1) 2024 01/29/2023, 02/04/2022, 02/13/2021, Additional history exists TSH 06/04/2024 06/04/2023, 09/16, 05/27/2022, Additional history exists Depression Screening 06/18/2024 06/18/2023 DTaP,Tdap,and Td Vaccines (3 - Td or Tdap) 08/27/2028 08/27/2018, 06/19/2008 Pneumococcal Vaccine: 65+ Years Completed 02/07/2015, 02/26/2011 Hepatitis C Screening Completed 02/13/2017 Zoster Vaccines Completed 10/27/2019, 06/19, 04/28/2009, Additional history exists Colonoscopy Discontinued 03/17/2023, 02/18, 05/09/2017, Additional history exists RETIRED - COLONOSCOPY-EVERY 5 YRS AGES 18-100 Discontinued 03/17/2023, 03/17/2023, 05/09/2017, Additional history exists VITAMIN D LEVEL ONCE IN A LIFETIME-USE SMARTSET# [id number] Completed 06/04/2023, 05/27/2022, 06/04/2021, Additional history exists [...] this encounter Medical Devices Implanted Type Area Dining Service Supervisor Device Identifier Shelf Expiration Date Model / Serial / Lot Envista Toric [id number] Se+17.5 Cyl 1.25 Implanted:Qty: 1 on 07/06/2020 by Nader Valdivia MD at [facility] Left: Eye [employer] 08/16/2021 [id number] / [id number] / [id number] Toric 17.5 Implanted:Qty: 1 on 07/18/2020 by Nader Valdivia MD at OR [facility] Right: Eye 08/16/2021 [id number] / [id number] / documented as of this encounter Care Teams Commercial Diver Relationship Specialty Start Date End Date Ant Fatima MD 200 [facility] [address] PCP - General Internal Medicine 02/09/16 documented as of this encounter
--- OUTSIDE RECORDS SUMMARY | 2024-02-21 05:28 | External Medical Summary | Summary of Care ---
Author Name Unknown Organization [facility] Address [address] [place] [address] Phone [phone] Care Team Providers Care Typist Name Role Phone Ant Fatima MD Primary Care Provider + Encounter Details Date Type Department Care Team (Latest Contact Info) Description 01/23/2024 12:30 PM EDT Office Visit Audiology [facility] [address] [place] [address] Asmita Snyder AuSam [address] [place] [address] Sensorineural hearing loss, bilateral [H90.3]* Allergies Active Allergy Reactions Criticality Noted Date Comments Pollen Other (Please comment) 01/15/2017 Sneezing, congestion documented as of this encounter (statuses as of 01/23/2024) Medications Medication Sig Dispensed Refills Start Date End Date Status Cholecalciferol (VITAMIN D3) 50 MCG (1999) Tablet Take 1 Tablet by mouth in the morning. 02/17/2019 Active Eliquis 5 MG Oral Tablet (Apixaban)Indications :PAF (paroxysmal atrial fibrillation) ([facility]) TAKE 1 TABLET BY MOUTH IN THE [...] as of this encounter (statuses as of 01/23/2024) Active Problems Problem Noted Date Diagnosed Date [...] as of this encounter (statuses as of 01/23/2024) Resolved Problems Problem Noted Date Diagnosed Date Resolved Date Stress due to illness of family member 06/04/2022 06/18/2023 Alveolar emphysema of lung 05/31/2021 0 06/04/2022 Chronic right-sided heart failure 05/31/2021 06/04/2022 Pulmonary hypertension 12/05/202006/04 Osteopenia of multiple sites 12/12/2016 08/14/2017 Benign neoplasm of colon Overview: adenomatous polyp, sees GI in [place] Other specified disorders of urethra 08/24/2018 Overview: curved course - h/o difficulty catherizations d/t this abnormality documented as of this encounter (statuses as of 01/23/2024) Immunizations Name Administration Dates Next Due COVID-19 [...] on file documented as of this encounter Progress Notes * Asmita Snyder Au.D. - 01/23/2024 12:30 PM EDT Images from the original note were not included. Pina Broderick, 78 year old was accompanied seen for an audiologic evaluation with a primary complaint of decreased hearing sensitivity. Noticed some changes over the last year. Nothing sudden. Referred by: Atn Fatima MD Audiologic/Otologic History: Case historian: Patient Hearing loss: SNHL AU Tinnitus: if she yawns or hiccups hears clicking or ringing in the right ear. Intermittent. Aural pressure/otalgia: No Disequilibrium/Vertigo: No Ear infections: No Noise Exposure:No Familial Hearing Loss: No Electra/Vestibulotoxic medication: No Head Injury: No Previous audiologic evaluation: 12/2022 Current Hearing Aids: none Procedures and Results Otoscopy: Ear canals are free of occluding cerumen for audiologic testing bilaterally. TMs are intact. Tympanometry 31806 See scanned results Right: WNL for static admittance, tympanometric peak pressure, equivalent volume, and tympanic width("Type A") Left: WNL for static admittance, tympanometric peak pressure, equivalent volume, and tympanic width("Type A") Standard Audiometric Testing 07500 ABSD, supra-aural earphones and insert earphones , Good reliability Right: sensorineural hearing loss Left: sensorineural hearing loss Speech recognition thresholds were consistent with hearing thresholds. Word recognition scores, obtained via monitored live voice were: right 100%, left 96% Impression: Bilateral symmetric sensorineural hearing loss Recommendations: Audiology services as needed., Audiologic monitoring of this identified hearing loss, and Hearing aid consultation Annelise Aponte, CCC-A Scan: audiogram, tympanograms cc: Ant Fatima MD year documented in this encounter Plan of Treatment Upcoming Encounters Date Type Department Care Team (Late st Contact Info) Description 02/17/2024 2:40 PM EDT Office Visit General Internal Medicine [facility] [place] [address] [address] Ant Fatima MD [address] [place] [address] 03/22/2024 2:00 PM EST Office Visit Dermatology [facility] [place] [address] [address] Ant Hernandez MD 200 [facility] [place] [address] 04/26/2024 9:30 AM EST Office Visit Audiology [facility] [address] [place] [address] Asmita Snyder Au.D. [address] [place] [address] 06/07/2024 11:00 AM EST Office Visit Hematology/Oncology [facility] 200 [facility] [place], [place] [phone] Kaykay Pires MD 200 [facility] [place] [address] 07/07/2024 1:30 PM EST Office Visit Cardiology, [facility] [address] [place] [address] Brendan Diez MD [address] [place] [address] 09/23/2024 11:40 AM EDT Office Visit Otolaryngology [facility] [address] [place] [address] Mauro Thornton PA-C [address] [place] [address] Health Maintenance Due Date Last Done Comments [...] D LEVEL ONCE IN A LIFETIME-USE SMARTSET# [id number] Completed 06/04/2023, 05/27/2022, 06/04/2021, Additional history exists [...] this encounter Medical Devices Implanted Type Area Charter Pilot Device Identifier Shelf Expiration Date Model / Serial / Lot Envista Toric [id number] Se+17.5 Cyl 1.25 Implanted:Qty: 1 on 07/06/2020 by Nader Valdivia MD at OR [facility] Left: Eye [employer]OM[employer] 08/16/2021 [id number] / [id number] / [id number] Toric 17.5 Implanted:Qty: 1 on 07/18/2020 by Nader Valdivia MD at OR [facility] Right: Eye 08/16/2021 [id number] / [id number] / documented as of this encounter Procedures Procedure Name Priority Date/Time Associated Diagnosis Comments AUDIOMETRIC RESULT 01/23/2024 AUDIOMETRIC RESULT 01/23/2024 documented in this encounter Results * AUDIOMETRIC RESULT (01/23/2024) 01/23/2024 [facility] * AUDIOMETRIC RESULT (01/23/2024) 01/23/2024 [facility] documented in this encounter Visit Diagnoses Diagnosis Sensorineural hearing loss, bilateral [H90.3]- Primary Sensorineural hearing loss, bilateral documented in this encounter Care Teams Typist Relationship Specialty Start Date End Date Ant Fatima MD [address] [place] [address] PCP - General Internal Medicine 02/09/16 documented as of this encounter
--- OUTSIDE RECORDS SUMMARY | 2024-02-21 05:28 | External Medical Summary | Summary of Care ---
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 * Evaluate & Treat - Unlimited Visits (Within 30 days (routine)) - Authorized Specialty Diagnoses / Procedures Referred By Contac t Referred To Contact Hematology/Oncology / Hematology Oncology Diagnoses Lymphocytosis Ant Fatima MD [facility] [address] [id number] Referral ID Status Reason Start Date Expiration Date Visits Requested Visits Authorized [id number] Authorized Specialty Services Required 10/23/[phone] Encounter Details Date Type Department Care Team (Late st Contact Info) Description 11/24/2023 1:00 PM EDT Office Visit Hematology/Oncology [facility] Olsen [address] [phone] Kaykay Pires MD [address] [id number] Lymphocytosis*; Elevated ferritin Allergies Active Allergy Reactions Criticality Noted Date Comments Pollen Other (Please comment) 01/15/2017 Sneezing, congestion documented as of this encounter (statuses as of 11/24/2023) Medications Medication Sig Dispensed Refills Start Date End Date Status Cholecalciferol (VITAMIN D3) 50 MCG (1999 [place]) [...] 3 04/24/2023 Active Synthroid 50 MCG Oral TabletIndications:Ac quired hypothyroidism TAKE 1 TABLET BY MOUTH FRIDAY, FRIDAY, AND FRIDAY AT LEAST 30 MINUTES PRIOR TO BREAKFAST OR OTHER MEDS 39 Tablet 3 10/20/2023 Active Synthroid 75 MCG Oral TabletIndications:Ac quired hypothyroidism TAKE 1 TABLET BY MOUTH EVERY FRIDAY, FRIDAY, FRIDAY AND FRIDAY AT LEAST 30 MIN PRIOR TO BREAKFAST OR OTHER MEDS 48 Tablet 3 10/20/2023 Active Biotin 1000 MCG Oral Tablet Take by mouth daily. 4 Discontinue d(Medicatio n List Clean Up) Triamcinolone Acetonide 0.1 % External Cream (Aristocort) Apply topically to affected area 2 times a day. To affected area. For 2 weeks 80 g 5 10/09/2023 4 Discontinue d(Medicatio n List Clean Up) documented as of this encounter (statuses as of 11/24/2023) Active Problems Problem Noted Date Diagnosed Date [...] as of this encounter (statuses as of 11/24/2023) Resolved Problems Problem Noted Date Diagnosed Date Resolved Date Stress due to illness of family member 06/04/2022 06/18/2023 Alveolar emphysema of lung 05/31/2021 0 06/04/2022 Chronic right-sided heart failure 05/31/2021 06/04/2022 Pulmonary hypertension 12/05/202006/04 Osteopenia of multiple sites 12/12/2016 08/14/2017 Benign neoplasm of colon Overview: adenomatous polyp, sees GI in [place] Other specified disorders of urethra 08/24/2018 Overview: curved course - h/o difficulty catherizations d/t this abnormality documented as of this encounter (statuses as of 11/24/2023) Immunizations Name Administration Dates Next Due COVID-19 [...] 1 967 - 1982 Smokeless Tobacco: Never Tobacco Cessation:Counseling Given: Not [...] Sign Reading Time Taken Comments Blood Pressure 158/80 11/24/2023 1:00 PM EDT Pulse 82 11/24/2023 1:00 PM EDT Temperature 36.6 C (97.9 F) 11/24/2023 1:00 PM ED T Respiratory Rate - - Oxygen Saturation 99% 11/24/2023 1:00 PM EDT Inhaled Oxygen Concentration - - Weight 63.5 kg (140 lb 1.6 oz) 11/24/2023 1:00 P M EDT Height 174 cm (5' 8.5") 11/24/2023 1:00 PM EDT Body Mass Index 20.99 11/24/2023 1:00 PM EDT documented in this encounter Progress Notes * Kaykay Pires MD - 11/24/2023 12:57 PM EDT Outpatient Consult Note Data Source: Patient, Epic record. 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 Patient had COVID infection in April 2023 and since then she has elevated lymphocyte count. Clinically she is doing well without any new symptoms of complain. Denies any fever, night sweats, weight loss, headache, dizziness, blurred vision chest pain, shortness of breath palpitation abdominal pain or distention, bleeding, bruising, change in the bowel habits, hematuria, hematochezia. Last CBC was done on 10/23/2023 which shows WBC count of 10.17, hemoglobin 13.5 and platelet count 255. Differential was significant for 31.2% neutrophils and 56.2 lymphocyte count. Absolute neutrophil count was 3.17 and absolute lymphocyte count was 5.72. She has persistent elevated lymphocyte counts since 06/04/2023. Flow cytometry of the blood was done on 06/04/2023 and the result was consistent with the lymphocytosis mostly T-cells with some NK cells and few polytypic B- cells, finding most likely consistent with reactive changes. Flow Interpretation The flow date from peripheral blood specimen demonstrates lymphocytes composed mostly of T-cells with some NK cells and a few of polytypic B-cells (see comment). COMMENT: The study from peripheral blood specimen is performed by multicolor flow cytometry. The analysis on CD45 versus side light scatter is performed. The gated lymphocytes represent [id number]% of total cells and are composed mostly of T cells. The T-cells express CD2, CD3, CD5, and CD7 with CD4 to CD8 ratio of 4.8 to 1. There are two populations of NK cells; one population of NK cells expresses CD2, CD7, CD16 and CD56; another population of NK cells, representing approximately 21% ofgated lymphocytes, are positive for CD2, CD7, CD8 and CD56 and negative for CD3, CD5 and CD16 (immunophenotypic features of these NK cells can be seen in newly produced NK cells or atypical NK cells). A few of B-cells are present and positive for CD19, CD20 and FMC7 with surface immunoglobulin light chain [place] to Lambda ratio of 2.3 to 1; the B-cells are negative for CD5, CD10 and CD43. The immunophenotypic features of T-cells and B- cells are consistent with reactive changes. The gated granulocytic population represents approximately 34% of total cells and the gated monocytes represent approximately 7% of total cells, both populations show no significantly aberrant immunophenotypic expression. Her history is also significant for elevated ferritin level were normal transferrin saturation. HFEgene mutation was negative. Her father in the daughters are positive for HFE gene mutation. Family history is also significant for father had liver cancer. Past Medical History: Diagnosis Date Aortic valve sclerosis 05/08/2021 Benign neoplasm of colon adenomatous polyp, sees GI in [place] Disorder of bone and cartilage osteopenia, improved [...] d/t this abnormality Pulmonary arterial hypertension (HCC) Current Outpatient Medications Medication Sig Dispense Refill Cholecalciferol (VITAMIN D3) 50 MCG (1999 [place]) Tablet Take 1 Tablet by mouth in the morning. Biotin 1000 MCG Oral Tablet Take by mouth daily. Eliquis 5 MG Oral Tablet (Apixaban) TAKE 1 TABLET BY MOUTH IN THE MORNING AND 1 TABLET BEFORE BEDTIME 180 Tablet 3 Metoprolol Succinate ER 25 MG Oral Tablet Extended Release 24 Hour (Toprol XL) Take 0.5 Tablets by mouth in the morning. 45 Tablet 3 Triamcinolone Acetonide 0.1 % External Cream (Aristocort) Apply topically to affected area 2 times a day. To affected area. For 2 weeks 80 g 5 Synthroid 50 MCG Oral Tablet TAKE 1 TABLET BY MOUTH FRIDAY, FRIDAY, AND FRIDAY AT LEAST 30 MINUTES PRIOR TO BREAKFAST OR OTHER MEDS 39 Tablet 3 Synthroid 75 MCG Oral Tablet TAKE 1 TABLET BY MOUTH EVERY FRIDAY, FRIDAY, FRIDAY AND FRIDAY ATLEAST 30 MIN PRIOR TO BREAKFAST OR OTHER MEDS 48 Tablet 3 No current facility-administered medications for this visit. 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 HEENT: No change in visual acuity, blurred or double vision. No epistaxis, facial pain, nasal discharge or change in hearing. Denies dysphagia, no muscosal ulceration, or sores noted. Cardiovascular: No chest pain, NERI, or palpitations Respiratory: No shortness of breath, cough, hemoptysis, or pleuritic chest pain Gastrointestinal: No abdominal pain, nausea, vomiting, diarrhea, rectal pain or bleeding Genitourinary: Denies Hematuria or dysuria Musculoskeletal: No bone pain Skin: No skin rash or lesions noted Neurologic: No numbness, weakness, neuropathic pain or change in cognitive function Psychiatric: No vegetative signs of depression Endocrine: No symptoms of hypothyroidism or hyperglycemia Hematologic: No bleeding or lymph nodes noted As mentioned above, all other systems were reviewed in full and are unremarkable. Review of patient's allergies indicates: Allergen Reactions Pollen Other (Please comment) Sneezing, congestion PHYSICAL EXAMINATION: General Appearance: Healthy appearing patient in no acute distress There were no vitals taken for this visit. Vitals were reviewed. HEENT: No oral or pharyngeal masses, ulceration or thrush noted, no sinus tenderness. Neck is supple with no thyromegaly or JVD noted. Lymph Nodes: No lymphadenopathy noted in the occipital, pre and post auricular, cervical, supra andinfraclavicular, axillary, epitrochlear, inguinal, and popliteal region. Lungs/Thorax: Clear to auscultation, no accessory muscles of respiration being used. Heart: Regular rate and rhythm, normal S1, S2. Abdomen: Soft, nontender, bowel sounds present, no appreciable hepatosplenomegaly, no palpable masses Extremeties: Good pulses bilaterally, no peripheral edema. Skin: Normal skin tone with no rash, petechiae, ecchymosis noted. Musculoskeletal: No pain on palpation over bony prominence, no edema, no evidence of gout, no jointor bony deformity ASSESSMENT: 78-year-old female with a past medical history [...] will continue to monitor the patient clinically. PLAN: As above. She will return to clinic for follow-up in 6 months with CBC, CMP, ferritin iron screen. The patient voiced understanding of all of the above. All questions and concerns were addressed in an apparently satisfactory manner. Kaykay Pires MD (This note was completed using the dictation program Fluency Direct. As such, there may be misspellings, word substitutions, or other variations that should not change the essence of the clinical content of this encounter note. If there is need for further clarification, please direct questions to me.) documented in this encounter Nursing Notes * Sanna Lynne, MED ASSIST - 11/24/2023 1:02 PM EDT Patient identifed by name and birthdate Do you have any concerns about pain management for today's visit? No Living Will or Advance Directive for Health Care as noted on the problem list. [facility] is a way you can talk to your provider on line through e-mail. Would you like to sign up? I can activate it for you? ALREADY ACTIVE Filed Vitals: 11/24/23 1300 BP: 158/80 Pulse: 82 Temp: 36.6 C (97.9 F) TempSrc: Tympanic SpO2: 99% Weight: 63.5 kg (140 lb 1.6 oz) Height: 1.74 m (5' 8.5") Patient was instructed to not get up on the exam table/exam chair until directed and assisted by their provider; patient is to remain seated in the chair/ wheelchair/ exam table/ exam chair for fall prevention and safety reasons. Patient is aware to have assistance to step down off exam table/exam chair with personnel. Patient voiced full comprehension of instructions. documented in this encounter Plan of Treatment Upcoming Encounters Date Type Department Care Team (Late st Contact Info) Description 11/24/2023 2:00 PM EDT Laboratory Laboratory [facility] [address] [id number] [place] [address] [address] Elevated ferritin 12/22/2023 2:40 PM EDT Office Visit General Internal Medicine [facility] [address] [address] Ant Fatima MD [address] [address] 03/01/2024 2:30 PM EDT Office Visit Dermatology [facility] [address] [address] Ant Hernandez MD [address] [facility] [place] [address] 06/07/2024 11:00 AM EST Office Visit Hematology/Oncology [facility] [address] [facility] [place], [place] [phone] Kaykay Pires MD [address] [facility] [place] [address] 09/23/2024 11:40 AM EDT Office Visit Otolaryngology [facility] [address] [place] [address] Mauro Thornton PA-C [address] [place] [address] Pending Results Name Type Priority Associated Diagnoses Date /Time COMPREHENSIVE METABOLIC PANEL Lab Routine Lymphocytosis 11/24/2023 1:27 PM EDT LD Lab Routine Lymphocytosis 11/24/2023 1:27 PM EDT Scheduled Orders Name Type Priority Associated Diagnoses Orde r Schedule FLOW CYTOMETRY, LEUKEMIA LYMPHOMA PANEL Lab Routine Lymphocytosis Ordered: 11/24/2023 FERRITIN Lab Routine Lymphocytosis Elevated ferritin Expected: 05/31/2024, Expires: 11/23/2024 IRON SCREEN, INCLUDING TIBC Lab Routine Lymphocytosis Elevated ferritin Expected: 05/31/2024, Expires: 11/23/2024 CBC WITH WBC DIFFERENTIAL Lab Routine Lymphocytosis Elevated ferritin Expected: 05/31/2024, Expires: 11/23/2024 COMPREHENSIVE METABOLIC PANEL Lab Routine Lymphocytosis Elevated ferritin Expected: 05/31/2024, Expires: 11/23/2024 Health Maintenance Due Date Last Done Comments [...] D LEVEL ONCE IN A LIFETIME-USE SMARTSET# [id number] Completed 06/04/2023, 05/27/2022, 06/04/2021, Additional history exists [...] this encounter Medical Devices Implanted Type Area Biodiesel Product Development Manager Device Identifier Shelf Expiration Date Model / Serial / Lot Envista Toric [id number] Se+17.5 Cyl 1.25 Implanted:Qty: 1 on 07/06/2020 by Nader Valdivia MD at OR [facility] Left: Eye [employer] 08/16/2021 [id number] / [id number] / [id number] Toric 17.5 Implanted:Qty: 1 on 07/18/2020 by Nader Valdivia MD at OR [facility] Right: Eye 08/16/2021 [id number] / [id number] / documented as of this encounter Visit Diagnoses Diagnosis Lymphocytosis- Primary Lymphocytosis (symptomatic) Elevated ferritin Other abnormal blood chemistry Elevated ferritin Other abnormal blood chemistry documented in this encounter Care Teams Schedule Clerk Relationship Specialty Start Date End Date Ant Fatima MD 200 [facility], [place] [id number] PCP - General Internal Medicine 02/09/16 documented as of this encounter
--- OUTSIDE RECORDS SUMMARY | 2024-02-21 05:28 | External Medical Summary | Summary of Care ---
Author Name Unknown Organization [facility] Address [address] [place] [address] Phone [phone] Care Team Providers Care Analog Ic Design Engineer Name Role Phone Ant Hollis MD Primary Care Provider + Reason for Visit * Reason Comments Follow Up 6 month follow up Encounter Details Date Type Department Care Team (Late st Contact Info) Description 02/13/2024 8:30 AM EDT Office Visit Cardiology, [facility] [address] [facility] [place] [address] Brendan Diez MD [address] [place] [address] Paroxysmal atrial fibrillation (HCC)* Allergies Active Allergy [...] colon Overview: adenomatous polyp, sees GI in [place] Other specified disorders of urethra 08/24/2018 Overview: [...] Follow Up Referring Provider: PCP: [place] [address] Chief Complaint: Follow-up paroxysmal atrial [...] Return 6 months Brendan Diez MD Cardiology, [address] [address] documented in this encounter Nursing Notes * [...] PM EDT Office Visit General Internal Medicine [facility] [address] [facility] [place] [address] Ant Hollis MD [address] [facility] [place] [address] 03/22/2024 2:00 PM EST Office Visit Dermatology [facility] [address] [facility] [place] [address] Ant Hernandez MD [address] [place] [address] [place] [address] 04/26/2024 9:30 AM EST Office Visit Audiology [facility] [address] [place] [address] Asmita Snyder Au.D. [address] [place] [address] 06/07/2024 11:00 AM EST Office Visit Hematology/Oncology [facility] [address] [facility] [place] [phone] Kaykay Pires MD 200 [facility] [place] [address] 09/23/2024 11:30 AM EDT Office Visit Otolaryngology [facility] [address] [place] [address] Mauro Thornton PA-C [address] [place] [address] Health Maintenance Due Date Last Done Comments [...] D LEVEL ONCE IN A LIFETIME-USE SMARTSET# [id number] Completed 06/04/2023, 05/27/2022, 06/04/2021, Additional history exists [...] this encounter Medical Devices Implanted Type Area Hospice Nurse Practitioner Device Identifier Shelf Expiration Date Model / Serial / Lot Luis Alfredo [place] [id number] Se+17.5 Cyl 1.25 Implanted:Qty: 1 on 07/06/2020 by Nader Valdivia MD at OR [facility] Left: Eye [employer] 08/16/2021 [id number] / [id number] / [id number] Toric 17.5 Implanted:Qty: 1 on 07/18/2020 by Nader Valdivia MD at OR [facility] Right: Eye 08/16/2021 [id number] / [id number] / documented as of this encounter Visit Diagnoses Diagnosis Paroxysmal atrial fibrillation (HCC)- Primary Atrial fibrillation documented in this encounter Care Teams Analog Ic Design Engineer Relationship Specialty Start Date End Date Ant Hollis MD [address] [place] [address] PCP - General Internal Medicine 02/09/16 documented as of this encounter"
--- OUTSIDE RECORDS SUMMARY | 2024-02-21 05:29 | External Medical Summary | Summary of Care ---
Author Name Unknown Organization [facility] Address [address] [place] [address] Phone [phone] Care Team Providers Care Clinical Resource Manager Name Role Phone Ant Fatima MD Primary Care Provider + Reason for Visit * Reason Onset Date Comments Referral 10/24/2023 30-Day Encounter Details Date Type Department Care Team (Late st Contact Info) Description 10/24/2023 New Patient Triage (POWER MARKETER USE ONLY) Hematology/Oncology [facility] [place] [address] [facility] [place] [address] Angélica Pearce CRNP [address] [place] [address] Referral (30-Day) Allergies Active Allergy Reactions Criticality Noted Date Comments Pollen Other (Please comment) 01/15/2017 Sneezing, congestion documented as of this encounter (statuses as of 10/27/2023) Medications Medication Sig Dispensed Refills Start Date End Date Status Cholecalciferol (VITAMIN D3) 50 MCG (1999 UT) Tablet Take 1 Tablet by mouth in the morning. 02/17/2019 Active Biotin 1000 MCG Oral Tablet Take by mouth daily. Active Eliquis 5 MG Oral Tablet (Apixaban)Indications :PAF (paroxysmal atrial fibrillation) (HCC) TAKE 1 TABLET BY MOUTH IN THE MORNING AND 1 TABLET BEFORE BEDTIME 180 Tablet 3 04/11/2023 Active Metoprolol Succinate ER 25 MG Oral Tablet Extended Release 24 Hour (Toprol XL) Take 0.5 Tablets by mouth in the morning. 45 Tablet 3 04/24/2023 Active Triamcinolone Acetonide 0.1 % External Cream (Aristocort) Apply topically to affected area 2 times a day. To affected area. For 2 weeks 80 g 5 10/09/2023 Active Synthroid 50 MCG Oral TabletIndications:Acq uired [...] as of this encounter (statuses as of 10/27/2023) Active Problems Problem Noted Date Diagnosed Date PAF (paroxysmal atrial fibrillation) 03/25/2023 Mild mitral regurgitation 12/15/2022 Mild tricuspid regurgitation 05/08/2021 Aortic valve sclerosis 05/08/2021 Paroxysmal SVT (supraventricular tachycardia) Mixed hyperlipidemia 06/07/2020 Hx of nonmelanoma skin cancer 09/21/2018 [facility], SCC[facility] 09/2017 Elevated ferritin 08/07/2018 High risk for fracture due to osteoporosis by DE XA scan 03/11/2017 Hx of atypical nevus 12/04/2016 FH: hemochromatosis 02/09/2016 Hypothyroidism documented as of this encounter (statuses as of 10/27/2023) Resolved Problems Problem Noted Date Diagnosed Date [...] as of this encounter (statuses as of 10/27/2023) Immunizations Name Administration Dates Next Due COVID-19 [...] Influenza, Split, I IV3, With Preserve, Inj 02/07/2015,02/02/2014,02/18/2013,10/06/2011,02/26/2011,02/20/2010,02/17/20 09 02/18/2014 Seasonal Influenza, Trivalen t, Adjuvanted, [...] money to get more. Never true 04/27/2020 Sex and Gender Information Value Date Recorded Sex Assigned at Female 09/16/2018 3:52 PM EDT Gender Identity Female 09/16/2018 3:52 PM EDT Sexual Orientation Straight 09/16/2018 3: 52 PM EDT Job Start Date Occupation Industry Not on file Not on file Not on file documented as of this encounter Progress Notes * Angélica Pearce CRNP - 10/27/2023 3:02 PM EDT Hematology New Referral Triage Note 78 y/o female referred for lymphocytosis. Previous patient of Dr. Pires. Lymphocytosis first noted in May 2023. Flow cytometry consistent with reactive etiology. Patient had been diagnosed with COVID 19 two weeks prior. Initially improved slightly one month later but has now remain persistently mildly elevated. ALC most recently 5.72 on 10/23/23. No other abnormalities on CBCd noted. LDH WNL. Does patient need to be seen?: Yes Modality: Office visit Urgency: Within 10 days (routine) Can the patient be seen by an advanced practitioner? No Are additional labs or studies needed prior to initial visit? No Is an infusion appointment needed after initial visit? No Discussed care plan with patient or proxy?: No Nurse to call. CARLOS Rios * Elise Chavez LPN - 10/24/2023 8:29 AM EDT Images from the original note were not included. New Patient Triage What is the diagnosis/reason for referral?: Lymphocytosis (D72.820) Enter order ID here: [id number] Specialty specific documentation: Hematology/Oncology NEW PATIENT - HEMATOLOGY/ONCOLOGY SPECIALTY TRIAGE Triage needed?: Yes Referring provider name: Ant Fatima MD Confirmation of diagnosis: Yes TRIAGE PLAN: Baseline/staging imaging complete: No Labs available: Yes Referral to other specialty recommended (ie. Surgery, outpatient infusion): No Additional triage comments: Please refer to Patient Message with Dr. Fatima, 10/23/[address] Pires back in 2019' for Elevated Ferritin documented in this encounter Plan of Treatment Upcoming Encounters Date Type Department Care Team (Late st Contact Info) Description 12/22/2023 2:40 PM EDT Office Visit General Internal Medicine [facility] [address] [facility] [place] [address] Ant Fatima MD [address] [facility] [place] [address] 03/01/2024 2:30 PM EDT Office Visit Dermatology [facility] [address] [facility] [place] [address] Ant Hernandez MD [address] [facility] [place] [address] 09/23/2024 11:40 AM EDT Office Visit Otolaryngology [facility] [address] [place] [address] Mauro Thornton PA-C [address] [place] [address] Health Maintenance Due Date Last Done Comments *BISPHONATE OR OTHER ACCEPTABLE MEDICATION NEEDED FOR OSTEOPOROSIS (REFER TO SMARTSET #1146) 08/26/2018 COVID-19 Vaccine ( season) 2023 02/06/2022, 10/03/2021, 03/17/2021, Additional history exists DXA Scan 06/05/2023 06/05/2021, 03/19, 03/10/2017, Additional history exists TSH 06/04/2024 06/04/2023, 09/16, 05/27/2022, Additional history exists Depression Screening 06/18/2024 06/18/2023 DTaP,Tdap,and Td Vaccines (3 - Td or Tdap) 08/27/2028 08/27/2018, 06/19/2008 Pneumococcal Vaccine: 65+ Years Completed 02/07/2015, 02/26/2011 Zoster Vaccines Completed 10/27/2019, 06/19, 04/28/2009, Additional history exists Influenza Vaccine (FLU shot) Completed 01/29/2023, 02/04/2022, 02/13/2021, Additional history exists Colonoscopy Discontinued 03/17/2023, 02/18, 05/09/2017, Additional history exists RETIRED - COLONOSCOPY-EVERY 5 YRS AGES 18-100 Discontinued 03/17/2023, 03/17/2023, 05/09/2017, Additional history exists VITAMIN D LEVEL ONCE IN A LIFETIME-USE SMARTSET# [id number] Completed 06/04/2023, 05/27/2022, 06/04/2021, Additional history exists GARDASIL-HPV IMMUNIZATION SERIES Aged Out No longer eligible based on patient's age to complete this topic Hepatitis B Aged Out No longer eligi ble based on patient's age to complete this topic MENINGOCOCCAL (MENACTRA/MENVEO) Aged Out No longer eligible based on patient's age to complete this topic documented as of this encounter Medical Devices Implanted Type Area Digital Account Supervisor Device Identifier Shelf Expiration Date Model / Serial / Lot Luis Alfredo Montana [id number] Se+17.5 Cyl 1.25 Implanted:Qty: 1 on 07/06/2020 by Nader Valdivia MD at OR [facility] Left: Eye [employer] 08/16/2021 [id number] / [id number] / [id number] Toric 17.5 Implanted:Qty: 1 on 07/18/2020 by Nader Valdivia MD at OR [facility] Right: Eye 08/16/2021 [id number] / [id number] / documented as of this encounter Care Teams Clinical Resource Manager Relationship Specialty Start Date End Date Ant Fatima MD [address] [place] [address] PCP - General Internal Medicine 02/09/16 documented as of this encounter
--- OUTSIDE RECORDS SUMMARY | 2024-02-21 05:29 | External Medical Summary ---
Author Name Unknown Address Unknown Organization [id number][facility] [address] [place] [address] Laboratory Report Ordering Provider Test Date Status TELMA PALM 11/24/2023 13:27:01 Final Observation Date Value Abnormality Reference (Units ) Status WBC, Total 11/24/2023 13:27:01 10.22 4.00-10.8 0 (K/uL) Final RBC 11/24/2023 13:27:01 4.31 3.85-5.15 (M/uL) Final Hemoglobin 11/24/2023 13:27:01 13.8 12.0-15.3 (g/dL) Final HCT 11/24/2023 13:27:01 42.8 36.0-45.2 (%) Final MCV 11/24/2023 13:27:01 99.3 81.5-97.5 (fL) Final MCH 11/24/2023 13:27:01 32.0 27.0-34.0 (pg) Final MCHC 11/24/2023 13:27:01 32.2 32.0-36.0 (g/dL) Final RDW 11/24/2023 13:27:01 12.3 11.5-15.5 (%) Final Platelets 11/24/2023 13:27:01 276 140-400 (K /uL) Final MPV 11/24/2023 13:27:01 10.5 6.6-11.1 ( fL) Final Performing Location [facility] [address] [place] [address]
--- OUTSIDE RECORDS SUMMARY | 2024-02-21 05:29 | External Medical Summary ---
Author Name Unknown Address Unknown Organization [id number] [address] [place] [address] Laboratory Report Ordering Provider Test Date Status MAHAD BAUTISTA 11/24/2023 13:27:01 Final Observation Date Value Abnormality Reference (Units ) Status BUN 11/24/2023 13:27:01 19 6-20 (mg/dL) Final Creatinine 11/24/2023 13:27:01 0.8 0.5-1.0 (mg/dL) Final Glomerular filtration rate/1.73 sq M.predicted [Volume Rate/Area] in Serum, Plasma or Blood by Creatinine-based formula (CKD-EPI) 11/24/2023 13:27:01 72 >=60 (mL/min) Final eGFR is calculated based on the CKD-EPI 2020 equation Sodium 11/24/2023 13:27:01 140 135-146 (m mol/L) Final Potassium 11/24/2023 13:27:01 4.2 3.5-5.1 (m mol/L) Final Cl 11/24/2023 13:27:01 101 98-107 (mm ol/L) Final CO2 11/24/2023 13:27:01 26 22-32 (mmo l/L) Final Anion gap 11/24/2023 13:27:01 13 7-15 (mmol /L) Final Glucose 11/24/2023 13:27:01 117 70-120 (mg /dL) Final Albumin 11/24/2023 13:27:01 4.5 3.8-5.0 (g /dL) Final AST (Aspartate aminotransferase) 11/24/2023 13:27:01 16 10-35 (U/L) Final Alk Phos 11/24/2023 13:27:01 63 35-130 (U/ L) Final Bilirubin, Total 11/24/2023 13:27:01 0.6 <=1 .2 (mg/dL) Final Calcium 11/24/2023 13:27:01 10.1 8.4-10.2 ( mg/dL) Final Protein 11/24/2023 13:27:01 7.6 6.0-8.3 (g /dL) Final ALT (Alanine aminotransferase) 11/24/2023 13:27:01 12 10-35 (U/L) Final Performing Location [facility] [place] [address]
--- OUTSIDE RECORDS SUMMARY | 2024-02-21 05:29 | External Medical Summary | Summary of Care ---
Author Name Unknown Organization [facility] Address [address] [place] [address] Phone [phone] Care Team Providers Care Cardiographer Name Role Phone Ant Fatima MD Primary Care Provider + Reason for Visit * Reason Comments Outpatient Testing Encounter Details Date Type Department Care Team (Late st Contact Info) Description 10/23/2023 9:30 AM EDT Laboratory Laboratory [facility] State Mayuri Arcos [address] [place] [address] [place] [facility] [address] [facility] [place] [address] Abnormal CBC Allergies Active Allergy Reactions Criticality Noted Date Comments Pollen Other (Please comment) 01/15/2017 Sneezing, congestion documented as of this encounter (statuses as of 10/23/2023) Medications Medication Sig Dispensed Refills Start Date [...] as of this encounter (statuses as of 10/23/2023) Active Problems Problem Noted Date Diagnosed Date [...] as of this encounter (statuses as of 10/23/2023) Resolved Problems Problem Noted Date Diagnosed Date Resolved Date Stress due to illness of family member 06/04/2022 06/18/2023 Alveolar emphysema of lung 05/31/2021 0 06/04/2022 Chronic right-sided heart failure 05/31/2021 06/04/2022 Pulmonary hypertension 12/05/202006/04 Osteopenia of multiple sites 12/12/2016 08/14/2017 Benign neoplasm of colon Overview: adenomatous polyp, sees GI in [place] Other specified disorders of urethra 08/24/2018 Overview: curved course - h/o difficulty catherizations d/t this abnormality documented as of this encounter (statuses as of 10/23/2023) Immunizations Name Administration Dates Next Due COVID-19 [...] on file documented as of this encounter Plan of Treatment Upcoming Encounters Date Type Department Care Team (Late st Contact Info) Description 12/22/2023 2:40 PM EDT Office Visit General Internal Medicine [facility] [address] [place] [address] Ant Fatima MD [address] [facility] [place] [address] 03/01/2024 2:30 PM EDT Office Visit Dermatology [facility] [place] [address] [address] Ant Hernandez MD [address] [place] [address] 09/23/2024 11:40 AM EDT Office Visit Otolaryngology [facility] [address] [place] [address] Mauro Thornton PA-C [address] [place] [address] Health Maintenance Due Date Last Done Comments [...] D LEVEL ONCE IN A LIFETIME-USE SMARTSET# [id number] Completed 06/04/2023, 05/27/2022, 06/04/2021, Additional history exists [...] this encounter Medical Devices Implanted Type Area Paste Up Copy Camera Operator Device Identifier Shelf Expiration Date Model / Serial / Lot Envista Toric [id number] Se+17.5 Cyl 1.25 Implanted:Qty: 1 on 07/06/2020 by Nader Valdivia MD at OR [facility] Left: Eye [employer]OM[employer] 08/16/2021 [id number] / [id number] / [id number] Toric 17.5 Implanted:Qty: 1 on 07/18/2020 by Nader Valdivia MD at OR [facility] Right: Eye 08/16/2021 [id number] / [id number] / documented as of this encounter Procedures Procedure Name Priority Date/Time Associated Diagnosis Comments DIFFERENTIAL, AUTOMATED Routine 10/23/2023 9:34 AM EDT Abnormal CBC CBC Routine 10/23/2023 9:34 AM EDT Abnormal CBC CBC Routine 10/23/2023 9:34 AM EDT Abnormal CBC documented in this encounter Results * (ABNORMAL) DIFFERENTIAL, AUTOMATED (10/23/2023 9:34 AM EDT) WBC 10.17 4.00 - 10.80 K/uL 10/23/2023 9:48 AM EDT [facility]02 Neutrophils % 31.2(L) 40.0 - 75.0 % 10/23/2023 9:48 AM EDT [facility] 56-02 Lymphocytes % 56.2(H) 18.0 - 42.0 % 10/23/2023 9:48 AM EDT [facility] 56-02 Monocytes % 10.5 1.0 - 11.0 % 10/23/2023 9:48 AM EDT LAB[facility]ORY [facility] 56-02 Eosinophils % 1.7 0.0 - 6.0 % 10/23/2023 9:48 AM EDT [facility] 56-02 Basophils % 0.4 0.0 - 2.0 % 10/23/2023 9:48 AM EDT [facility] 56-02 Absolute Neutrophils 3.17 1.80 - 7.70 K/uL 10/23/2023 9:48 AM EDT [facility] Absolute Lymphocytes 5.72(H) 1.00 - 4.80 K/ul 10/23/2023 9:48 AM EDT [facility] Absolute Monocytes 1.07 0.00 - 1.10 K/uL 10/23/2023 9:48 AM EDT [facility] Absolute Eosinophils 0.17 0.00 - 0.70 K/uL 10/23/2023 9:48 AM EDT [facility] 56 Absolute Basophils 0.04 0.00 - 0.20 K/uL 10/23/2023 9:48 AM EDT [facility] Blood Venous blood specimen / Unknown Venipuncture / Unknown 10/23/2023 9:34 AM EDT 10/23/2023 9:34 AM EDT Ant Fatima MD LAB BLOOD ORDERA BLES Performing Organization Address City/State/[facility] Co de Phone Number [facility] [address] [place] [address] * CBC (10/23/2023 9:34 AM EDT) WBC 10.17 4.00 - 10.80 K/uL 10/23/2023 9:48 AM EDT [facility] RBC 4.29 3.85 - 5.15 M/uL 10/23/2023 9:48 AM EDT [facility] HGB 13.5 12.0 - 15.3 g/dL 10/23/2023 9:48 AM EDT [facility] HCT 42.7 36.0 - 45.2 % 10/23/2023 9:48 AM EDT [facility] MCV 99.5 81.5 - 97.5 fL 10/23/2023 9:48 AM EDT [facility] MCH 31.5 27.0 - 34.0 pg 10/23/2023 9:48 AM EDT [facility] MCHC 31.6 32.0 - 36.0 g/dL 10/23/2023 9:48 AM EDT [facility] RDW 12.2 11.5 - 15.5 % 10/23/2023 9:48 AM EDT [facility] PLT 255 140 - 400 K/uL 10/23/2023 9:48 AM EDT [facility] MPV 10.7 6.6 - 11.1 fL 10/23/2023 9:48 AM EDT [facility] Blood Venous blood specimen / Unknown Venipuncture / Unknown 10/23/2023 9:34 AM EDT 10/23/2023 9:34 AM EDT Ant Fatima MD LAB BLOOD ORDERA BLES [facility] [address] documented in this encounter Visit Diagnoses Diagnosis Abnormal CBC Other abnormal blood chemistry documented in this encounter Care Teams Cardiographer Relationship Specialty Start Date End Date nAt Fatima MD [address] [facility] [address] PCP - General Internal Medicine 02/09/16 documented as of this encounter
--- OUTSIDE RECORDS SUMMARY | 2024-02-21 05:29 | External Medical Summary | Summary of Care ---
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) Hematology/Oncology [facility] [place] [address] [facility] [place] [address] Angélica Pearce CRNP [address] [place] [address] Referral (30-Day) Allergies Active Allergy Reactions Criticality Noted Date Comments Pollen Other (Please comment) 01/15/2017 Sneezing, congestion documented as of this encounter (statuses as of 10/28/2023) Medications Medication Sig Dispensed Refills Start Date [...] as of this encounter (statuses as of 10/28/2023) Active Problems Problem Noted Date Diagnosed Date PAF (paroxysmal atrial fibrillation) 03/25/2023 Mild mitral regurgitation 12/15/2022 Mild tricuspid regurgitation 05/08/2021 Aortic valve sclerosis 05/08/2021 Paroxysmal SVT (supraventricular tachycardia) Mixed hyperlipidemia 06/07/2020 Hx of nonmelanoma skin cancer 09/21/2018 [facility] 09/2017 Elevated ferritin 08/07/2018 High risk for fracture due to osteoporosis by DE XA scan 03/11/2017 Hx of atypical nevus 12/04/2016 FH: hemochromatosis 02/09/2016 Hypothyroidism documented as of this encounter (statuses as of 10/28/2023) Resolved Problems Problem Noted Date Diagnosed Date [...] as of this encounter (statuses as of 10/28/2023) Immunizations Name Administration Dates Next Due COVID-19 [...] as of this encounter Progress Notes * Elise Chavez LPN - 10/28/2023 3:27 PM EDT Called and spoke with patient, patient states she will be out of town from 10/29/2023 to 11/14/2023. Offered patient appt with Dr. Pires (first available) on FridayNovember 23 at 1:00 pm at . Patient states her sees Dr. Summers and denies the need for directions. She denies any further needs orrequests at this time. * Angélica Pearce CRNP - 10/27/2023 3:02 [...] patient or proxy?: No Nurse to call. CALROS Rios * Elise Chavez LPN - 10/24/2023 8:29 AM EDT Images from the original note were not included. New Patient Triage What is the diagnosis/reason for referral?: Lymphocytosis (D72.820) Enter order ID here: [id number] Specialty specific documentation: Hematology/Oncology NEW PATIENT - [...] Office Visit Hematology/Oncology State Mayuri Olsen [address] [place] [phone] Kaykay Pires MD [address] [place] [address] 12/22/2023 2:40 PM EDT Office Visit General Internal Medicine [facility] 200 [facility] [place], [place] [address] Ant Fatima MD [address] [facility] [place], [place] [address] 03/01/2024 2:30 PM EDT Office Visit Dermatology [facility] [address] [facility] [place], [place] [address] Ant Hernandez MD [address] [facility] [place], [place] [address] 09/23/2024 11:40 AM EDT Office Visit Otolaryngology [facility] [address] [place] [address] Mauro Thornton PA-C [address] [facility] [place] [address] Health Maintenance Due Date Last Done Comments [...] D LEVEL ONCE IN A LIFETIME-USE SMARTSET# [id number] Completed 06/04/2023, 05/27/2022, 06/04/2021, Additional history exists [...] this encounter Medical Devices Implanted Type Area Business Information Analyst Device Identifier Shelf Expiration Date Model / Serial / Lot Envista Toric [id number] Se+17.5 Cyl 1.25 Implanted:Qty: 1 on 07/06/2020 by Nader Valdivia MD at OR [facility] Left: Eye [employer]OM[employer] 08/16/2021 [id number] / [id number] / [id number] Toric 17.5 Implanted:Qty: 1 on 07/18/2020 by Nader Valdivia MD at OR [facility] Right: Eye 08/16/2021 [id number] / [id number] / documented as of this encounter Care Teams Media Librarian Relationship Specialty Start Date End Date Ant Fatima MD [address] [facility] [place] [place] [address] PCP - General Internal Medicine 02/09/16 documented as of this encounter
--- OUTSIDE RECORDS SUMMARY | 2024-02-21 05:29 | External Medical Summary ---
Author Name Unknown Address Unknown Organization K09:[facility] [address] [place] [address] Laboratory Report Ordering Provider Test Date Status TELMA PALM 11/24/2023 13:27:01 Final Observation Date Value Abnormality Reference (Units ) Status SYNC LEUKOCYTES IN BLOOD BY AUTOMATED COUNT 11/24/2023 13:27:01 10.22 4.00-10.80 (K/uL) Final Segs 11/24/2023 13:27:01 43.3 40.0-75.0 (%) Final Lymphs % 11/24/2023 13:27:01 46.2 Above high normal 18.0-42.0 (%) Final Monos 11/24/2023 13:27:01 9.0 1.0-11.0 (%) Final Eosinophils 11/24/2023 13:27:01 1.2 0.0-6.0 (%) Final Basos 11/24/2023 13:27:01 0.3 0.0-2.0 (%) Final Absolute Segs 11/24/2023 13:27:01 4.43 1.80-7.70 (K/uL) Final Lymphs, absolute 11/24/2023 13:27:01 4.72 1.00-4.80 (K/ul) Final Monos, Abs 11/24/2023 13:27:01 0.92 0.00-1.10 (K/uL) Final Eos, Abs 11/24/2023 13:27:01 0.12 0.00-0.70 (K/uL) Final Basos, Abs 11/24/2023 13:27:01 0.03 0.00-0.20 (K/uL) Final Performing Location [facility] [place] [address] [address]
--- OUTSIDE RECORDS SUMMARY | 2024-02-21 05:29 | External Medical Summary ---
Author Name Unknown Address Unknown Organization K01:[facility] - [address] [facility] [place] [address] Laboratory Report Ordering Provider Test Date Status TELMA PALM 11/24/2023 13:27:01 Final Observation Date Value Abnormality Reference (Units ) Status Ferritin 11/24/2023 13:27:01 110 13-150 (ng /mL) Final Postmenopausal women have hi gher ferritin levels than pre-menopausal women. The above reference interval is based on pre-menopausal women. Performing Location [facility] - [address] [place] [address]
--- OUTSIDE RECORDS SUMMARY | 2024-02-21 05:29 | External Medical Summary | Summary of Care ---
Author Name Unknown Organization [facility] Address [address] [place] [address] Phone [phone] Care Team Providers Care Pony Ride Operator Name Role Phone Ant Fatima MD Primary Care Provider + Reason for Visit * Reason Onset Date Comments Referral 10/24/2023 30-Day Encounter Details Date Type Department Care Team (Late st Contact Info) Description 10/24/2023 New Patient Triage (PEOPLES[employer]FT FIN[employer]CIALS CONSULTANT USE ONLY) Hematology/Oncology [facility] [place] [address] [facility] [place] [address] Angélica Pearce CRNP [address] [place] [address] Referral (30-Day) Allergies Active Allergy [...] of nonmelanoma skin cancer 09/21/2018 Overview: [facility], SCCIS R [facility] 09/2017 Elevated [...] referral?: Lymphocytosis (D72.820) Enter order ID here: [id number] Specialty specific documentation: Hematology/Oncology NEW PATIENT - [...] PM EDT Office Visit General Internal Medicine [facility] [address] [facility] [place] [address] Ant Fatima MD [address] [facility] [place] [address] 03/01/2024 2:30 PM EDT Office Visit Dermatology [facility] [address] [facility] [place] [address] Ant Hernandez MD [address] [facility] [place] [address] 09/23/2024 11:40 AM EDT Office Visit Otolaryngology [facility] [address] [place] [address] Mauro Thornton PA-C [address] [place] [address] Health Maintenance Due Date Last Done Comments [...] D LEVEL ONCE IN A LIFETIME-USE SMARTSET# [id number] Completed 06/04/2023, 05/27/2022, 06/04/2021, Additional history exists [...] this encounter Medical Devices Implanted Type Area System Software Programmer Device Identifier Shelf Expiration Date Model / Serial / Lot Luis Alfredo Montana [id number] Se+17.5 Cyl 1.25 Implanted:Qty: 1 on 07/06/2020 by Nader Valdivia MD at [place] [facility] Left: Eye BAUSCH & LOMB 08/16/2021 [id number] / [id number] / [id number] Toric 17.5 Implanted:Qty: 1 on 07/18/2020 by Nader Valdivia MD at OR [facility] Right: Eye 08/16/2021 [id number] / [id number] / documented as of this encounter Care Teams Pony Ride Operator Relationship Specialty Start Date End Date Ant Fatima MD [address] [facility] [address] PCP - General Internal Medicine 02/09/16 documented as of this encounter
--- OUTSIDE RECORDS SUMMARY | 2024-02-21 05:29 | External Medical Summary | Summary of Care ---
Author Name Unknown Organization [facility] Address [address] [place] [address] Phone [phone] Care Team Providers Care Manager Quantitative Name Role Phone Ant Fatima MD Primary Care Provider + Reason for Visit * Reason Comments Outpatient Testing Encounter Details Date Type Department Care Team (Late st Contact Info) Description 11/24/2023 2:00 PM EDT Laboratory Laboratory [facility] Mayuri Arcos [address] [place] [address] [place] [facility] [address] [facility] [place] [address] Elevated ferritin Allergies Active Allergy Reactions Criticality [...] colon Overview: adenomatous polyp, sees GI in [place] Other specified disorders of urethra 08/24/2018 Overview: [...] PM EDT Office [facility] [place] [address] [address] Ant Fatima MD [address] [address] 03/01/2024 2:30 PM EDT [facility] [address] [facility] [place] [address] Ant Hernandez MD 200 [facility] [place] [address] 06/07/2024 11:00 AM EST Office Visit [facility]ology[facility] [address] [facility] [place] [address] Kaykay Pires MD 200 [facility] [place], [place] [address] 09/23/2024 11:40 AM EDT Office Visit Otolaryngology [facility] [address] [place] [address] Mauro Thornton PA-C [address] [place] [address] Pending Results Name Type Priority Associated Diagnoses Date /Time FERRITIN Lab Routine Elevated ferritin 11/24/2023 1:27 PM EDT IRON SCREEN, INCLUDING TIBC Lab Routine Elevated ferritin 11/24/2023 1:27 PM EDT CBC WITH WBC DIFFERENTIAL Lab Routine Elevated ferritin 11/24/2023 1:27 PM EDT DIFFERENTIAL, AUTOMATED Lab Routine Elevated ferritin 11/24/2023 1:27 PM EDT Health Maintenance Due Date Last Done Comments [...] D LEVEL ONCE IN A LIFETIME-USE SMARTSET# [id number] Completed 06/04/2023, 05/27/2022, 06/04/2021, Additional history exists [...] this encounter Medical Devices Implanted Type Area Counterintelligence Specialist Device Identifier Shelf Expiration Date Model / Serial / Lot Envista Toric [id number] Se+17.5 Cyl 1.25 Implanted:Qty: 1 on 07/06/2020 by Nader Valdivia MD at OR [facility] Left: Eye BAUSCH & LOMB 08/16/2021 [id number] / [id number] / [id number] Toric 17.5 Implanted:Qty: 1 on 07/18/2020 by Nader Valdivia MD at OR [facility] Right: Eye 08/16/2021 [id number] / [id number] / documented as of this encounter Procedures Procedure Name Priority Date/Time Associated Diagnosis Comments CBC Routine 11/24/2023 1:27 PM EDT Elevated ferritin documented in this encounter Results * CBC (11/24/2023 1:27 PM EDT) WBC 10.22 4.00 - 10.80 K/uL 11/24/2023 1:42 PM EDT [facility] 56- RBC 4.31 3.85 - 5.15 M/uL 11/24/2023 1:42 PM EDT [facility] 56- HGB 13.8 12.0 - 15.3 g/dL 11/24/2023 1:42 PM EDT [facility] 56 HCT 42.8 36.0 - 45.2 % 11/24/2023 1:42 PM EDT [facility] 56 MCV 99.3 81.5 - 97.5 fL 11/24/2023 1:42 PM EDT [address] MCH 32.0 27.0 - 34.0 pg 11/24/2023 1:42 PM EDT [facility] 56 MCHC 32.2 32.0 - 36.0 g/dL 11/24/2023 1:42 PM EDT [facility] 56 RDW 12.3 11.5 - 15.5 % 11/24/2023 1:42 PM EDT [facility] 56 PLT 276 140 - 400 K/uL 11/24/2023 1:42 PM EDT [facility] 56 MPV 10.5 6.6 - 11.1 fL 11/24/2023 1:42 PM EDT [facility] 5602 Blood Venous blood specimen / Unknown Venipuncture / Unknown 11/24/2023 1:27 PM EDT 11/24/2023 1:27 PM EDT Ant Fatima MD LAB BLOOD ORDERA BLES [facility]- [facility] [address] documented in this encounter Visit Diagnoses Diagnosis Elevated ferritin Other abnormal blood chemistry documented in this encounter Care Teams Manager Quantitative Relationship Specialty Start Date End Date [facility] Fat[facility] [address] PCP - General Internal Medicine 02/09/16 documented as of this encounter
--- OUTSIDE RECORDS SUMMARY | 2024-02-21 05:29 | External Medical Summary | Summary of Care ---
Author Name Unknown Organization [facility] Address [address] [place] [address] Phone [phone] Care Team Providers Care Patternmaker Bench Name Role Phone Ant Fatima MD Primary Care Provider + Reason for Visit * Reason Onset Date Comments Referral 10/24/2023 30-Day Encounter Details Date Type Department Care Team (Late st Contact Info) Description 10/24/2023 New Patient Triage (COAL CHUTE WORKER USE ONLY) Hematology/Oncology [facility] [place] [address] [place] [address] Angélica Pearce CRNP [address] [place] [address] Referral (30-Day) Allergies Active Allergy Reactions Criticality Noted Date Comments Pollen Other (Please comment) 01/15/2017 Sneezing, congestion documented as of this encounter (statuses as of 10/24/2023) Medications Medication Sig Dispensed Refills Start Date [...] as of this encounter (statuses as of 10/24/2023) Active Problems Problem Noted Date Diagnosed Date PAF (paroxysmal atrial fibrillation) 03/25/2023 Mild mitral regurgitation 12/15/2022 Mild tricuspid regurgitation 05/08/2021 Aortic valve sclerosis 05/08/2021 Paroxysmal SVT (supraventricular tachycardia) Mixed hyperlipidemia 06/07/2020 Hx of nonmelanoma skin cancer 09/21/2018 [facility], SCCIS R [facility] 09/2017 Elevated ferritin 08/07/2018 High risk for fracture due to osteoporosis by DE XA scan 03/11/2017 Hx of atypical nevus 12/04/2016 FH: hemochromatosis 02/09/2016 Hypothyroidism documented as of this encounter (statuses as of 10/24/2023) Resolved Problems Problem Noted Date Diagnosed Date Resolved Date Stress due to illness of family member 06/04/2022 06/18/2023 Alveolar emphysema of lung 05/31/2021 0 06/04/2022 Chronic right-sided heart failure 05/31/2021 06/04/2022 Pulmonary hypertension 12/05/202006/04 Osteopenia of multiple sites 12/12/2016 08/14/2017 Benign neoplasm of colon Overview: adenomatous polyp, sees GI in [place] Other specified disorders of urethra 08/24/2018 Overview: curved course - h/o difficulty catherizations d/t this abnormality documented as of this encounter (statuses as of 10/24/2023) Immunizations Name Administration Dates Next Due COVID-19 [...] Progress Notes * Elise Chavez LPN - 10/24/2023 8:29 AM EDT Images from the original note were not included. New Patient Triage What is the diagnosis/reason for referral?: Lymphocytosis (D72.820) Enter order ID here: [id number] Specialty specific documentation: Hematology/Oncology NEW PATIENT - [...] PM EDT Office Visit General Internal Medicine [facility] [address] [facility] [place] [address] Ant Fatima MD [address] [facility] [place] [address] 03/01/2024 2:30 PM EDT Office Visit Dermatology [facility] [address] [facility] [place] [address] Ant Hernandez MD [address] [facility] [place] [address] 09/23/2024 11:40 AM EDT Office Visit Otolaryngology [facility] [address] [place] [address] Mauro Thornton PA-C [address] [place] [address] Health Maintenance Due Date Last Done Comments [...] D LEVEL ONCE IN A LIFETIME-USE SMARTSET# [id number] Completed 06/04/2023, 05/27/2022, 06/04/2021, Additional history exists [...] this encounter Medical Devices Implanted Type Area Licensed Retail Supervisor Device Identifier Shelf Expiration Date Model / Serial / Lot Envista Toric [id number] Se+17.5 Cyl 1.25 Implanted:Qty: 1 on 07/06/2020 by Nader Valdivia MD at OR [facility] Left: Eye BAUSCH & LOMB 08/16/2021 [id number] / [id number] / [id number] Toric 17.5 Implanted:Qty: 1 on 07/18/2020 by Nader Valdivia MD at OR [facility] Right: Eye 08/16/2021 [id number] / [id number] / documented as of this encounter Care Teams Patternmaker Bench Relationship Specialty Start Date End Date Ant Fatima MD [address] [facility] [place] [address] PCP - General Internal Medicine 02/09/16 documented as of this encounter
--- OUTSIDE RECORDS SUMMARY | 2024-02-21 05:30 | External Medical Summary ---
Author Name Unknown Address Unknown Organization K[facility] [place] [place] [address] Laboratory Report Ordering Provider Test Date Status TELMA PALM 10/23/2023 09:34:59 Final Observation Date Value Abnormality Reference (Units ) Status SYNC LEUKOCYTES IN BLOOD BY AUTOMATED COUNT 10/23/2023 09:34:59 10.17 4.00-10.80 (K/uL) Final Segs 10/23/2023 09:34:59 31.2 Below low normal 40.0-75.0 (%) Final Lymphs % 10/23/2023 09:34:59 56.2 Above high normal 18.0-42.0 (%) Final Monos 10/23/2023 09:34:59 10.5 1.0-11.0 (%) Final Eosinophils 10/23/2023 09:34:59 1.7 0.0-6.0 (%) Final Basos 10/23/2023 09:34:59 0.4 0.0-2.0 (%) Final Absolute Segs 10/23/2023 09:34:59 3.17 1.80-7.70 (K/uL) Final Lymphs, absolute 10/23/2023 09:34:59 5.72 Above high normal 1.00-4.80 (K/ul) Final Monos, Abs 10/23/2023 09:34:59 1.07 0.00-1.10 (K/uL) Final Eos, Abs 10/23/2023 09:34:59 0.17 0.00-0.70 (K/uL) Final Basos, Abs 10/23/2023 09:34:59 0.04 0.00-0.20 (K/uL) Final Performing Location [facility] [place] [place] [address]
--- OUTSIDE RECORDS SUMMARY | 2024-02-21 05:30 | External Medical Summary | Summary of Care ---
Author Name Unknown Organization [facility] Address [address] [place] [address] Phone [phone] Care Team Providers Care Consumer Studies Professor Name Role Phone Ant Fatima MD Primary Care Provider + Reason for Visit * Reason Comments Outpatient Testing Encounter Details Date Type Department Care Team (Late st Contact Info) Description 09/29/2023 8:50 AM EDT Laboratory Laboratory [facility] Mayuri Arcos [address] [place] [address] [place] [facility] [address] [facility] [place] [address] Abnormal CBC measurement Allergies Active Allergy Reactions Criticality Noted Date Comments Pollen Other (Please comment) 01/15/2017 Sneezing, congestion documented as of this encounter (statuses as of 09/29/2023) Medications Medication Sig Dispensed Refills Start Date End Date Status Cholecalciferol (VITAMIN D3) 50 MCG (1999 UT) Tablet Take 1 Tablet by mouth in the morning. 0 02/17/2019 Active Biotin 1000 MCG Oral Tablet Take by mouth daily. 0 Active Synthroid 50 MCG Oral TabletIndications:Acq uired hypothyroidism TAKE 1 TABLET BY MOUTH FRIDAY, FRIDAY, AND FRIDAY AT LEAST 30 MINUTES PRIOR TO BREAKFAST OR OTHER MEDS 39 Tablet 3 01/23/2023 Active Synthroid 75 MCG Oral TabletIndications:Acq uired hypothyroidism TAKE 1 TABLET BY MOUTH EVERY FRIDAY, FRIDAY, FRIDAY AND FRIDAY AT LEAST 30 MIN PRIOR TO BREAKFAST OR OTHER MEDS 48 Tablet 3 01/23/2023 Active Eliquis 5 MG Oral Tablet (Apixaban)Indications [...] as of this encounter (statuses as of 09/29/2023) Active Problems Problem Noted Date Diagnosed Date [...] as of this encounter (statuses as of 09/29/2023) Resolved Problems Problem Noted Date Diagnosed Date Resolved Date Stress due to illness of family member 06/04/2022 06/18/2023 Alveolar emphysema of lung 05/31/2021 0 06/04/2022 Chronic right-sided heart failure 05/31/2021 06/04/2022 Pulmonary hypertension 12/05/202006/04 Osteopenia of multiple sites 12/12/2016 08/14/2017 Benign neoplasm of colon Overview: adenomatous polyp, sees GI in [place] Other specified disorders of urethra 08/24/2018 Overview: curved course - h/o difficulty catherizations d/t this abnormality documented as of this encounter (statuses as of 09/29/2023) Immunizations Name Administration Dates Next Due COVID-19 [...] yrs 02/25/2019 TD - Tetanus/Diptheria (ADULT) 08/27/2018 TDAP (age 11 and older)(Adacel) 06/19/2008 Varicella Zoster Vaccine (Adult) 04/28/2009 Zoster [...] PM EDT Office Visit General Internal Medicine [facility] [address] [place] [address] Ant Fatima MD [address] [place] [address] 03/01/2024 2:30 PM EDT Office Visit Dermatology [facility] [address] [place] [address] Ant Hernandez MD [address] [place] [address] 09/23/2024 11:40 AM EDT Office Visit Otolaryngology [facility] [address] [place] [address] Mauro Thornton PA-C [address] [address] Pending Results Name Type Priority Associated Diagnoses Date /Time CBC WITH WBC DIFFERENTIAL Lab Routine Abnormal CBC measurement 09/29/2023 9:00 AM EDT CBC Lab Routine Abnormal CBC measurement 09/29/2023 9:00 AM EDT DIFFERENTIAL, AUTOMATED Lab Routine Abnormal CBC measurement 09/29/2023 9:00 AM EDT Health Maintenance Due Date Last Done Comments *BISPHONATE OR OTHER ACCEPTABLE MEDICATION NEEDED FOR OSTEOPOROSIS (REFER TO SMARTSET #1146) 08/26/2018 COVID-19 Vaccine ( season) 2023 02/06/2022, 10/03/2021, 03/17/2021, Additional history exists DXA Scan 06/05/2023 06/05/2021, 03/19, 03/10/2017, Additional history exists TSH 06/04/2024 06/04/2023, 09/16, 05/27/2022, Additional history exists Depression Screening 06/18/2024 06/18/2023 Colonoscopy 03/17/2028 03/17/2023, 02/18, 05/09/2017, Additional history exists DTaP,Tdap,and Td Vaccines (3 - Td or Tdap) 08/27/2028 08/27/2018, 06/19/2008 Pneumococcal Vaccine: 65+ Years Completed 02/07/2015, 02/26/2011 Zoster Vaccines Completed 10/27/2019, 06/19, 04/28/2009, Additional history exists Influenza Vaccine (FLU shot) Completed 01/29/2023, 02/04/2022, 02/13/2021, Additional history exists RETIRED - COLONOSCOPY-EVERY 5 YRS AGES 18-100 Discontinued 03/17/2023, 03/17/2023, 05/09/2017, Additional history exists VITAMIN D LEVEL ONCE IN A LIFETIME-USE SMARTSET# [id number] Completed 06/04/2023, 05/27/2022, 06/04/2021, Additional history exists [...] this encounter Medical Devices Implanted Type Area Skiver Uppers Or Linings Device Identifier Shelf Expiration Date Model / Serial / Lot Envista Toric [id number] Se+17.5 Cyl 1.25 Implanted:Qty: 1 on 07/06/2020 by Nader Valdivia MD at OR [facility] Left: Eye BAUSCH & LOMB 08/16/2021 [id number] / [id number] / [id number] Toric 17.5 Implanted:Qty: 1 on 07/18/2020 by Nader Valdivia MD at OR [facility] Right: Eye 08/16/2021 [id number] / [id number] / documented as of this encounter Visit Diagnoses Diagnosis Abnormal CBC measurement Other abnormal blood chemistry documented in this encounter Care Teams Consumer Studies Professor Relationship Specialty Start Date End Date Ant Fatima MD [address] [place] [address] PCP - General Internal Medicine 02/09/16 documented as of this encounter
--- OUTSIDE RECORDS SUMMARY | 2024-02-21 05:30 | External Medical Summary ---
Author Name Unknown Address Unknown Organization [facility] [place] [address] Laboratory Report Ordering Provider Test Date Status TELMA PALM 09/29/2023 09:00:19 Final Observation Date Value Abnormality Reference (Units ) Status Nucleated erythrocytes/100 leukocytes [Ratio] in Blood by Automated count 09/29/2023 09:00:19 Final Performing Location [facility] [place] [address]
--- OUTSIDE RECORDS SUMMARY | 2024-02-21 05:30 | External Medical Summary | Summary of Care ---
Author Name Unknown Organization [facility] Address [address] [place] [address] Phone [phone] Care Team Providers Care Leather Goods Maker Name Role Phone Ant Fatima MD Primary Care Provider + Reason for Visit * Reason Comments NEW PATIENT Encounter Details Date Type Department Care Team (Latest Contact Info) Description 09/25/2023 8:40 AM EDT Office Visit Otolaryngology [facility] [address] [place] [id number] Mauro Thornton PA-C [address] [place] [id number] Bilateral impacted cerumen*; Seasonal allergic rhinitis due to other allergic trigger; Bilateral sensorineural hearing loss Allergies Active Allergy Reactions Criticality Noted Date Comments Pollen Other (Please comment) 01/15/2017 Sneezing, congestion documented as of this encounter (statuses as of 09/25/2023) Medications Medication Sig Dispensed Refills Start Date [...] as of this encounter (statuses as of 09/25/2023) Active Problems Problem Noted Date Diagnosed Date [...] as of this encounter (statuses as of 09/25/2023) Resolved Problems Problem Noted Date Diagnosed Date Resolved Date Stress due to illness of family member 06/04/2022 06/18/2023 Alveolar emphysema of lung 05/31/2021 0 06/04/2022 Chronic right-sided heart failure 05/31/2021 06/04/2022 Pulmonary hypertension 12/05/202006/04 Osteopenia of multiple sites 12/12/2016 08/14/2017 Benign neoplasm of colon Overview: adenomatous polyp, sees GI in [place] Other specified disorders of urethra 08/24/2018 Overview: curved course - h/o difficulty catherizations d/t this abnormality documented as of this encounter (statuses as of 09/25/2023) Immunizations Name Administration Dates Next Due COVID-19 [...] Sign Reading Time Taken Comments Blood Pressure - - Pulse - - Temperature 36.1 C (97 F) 09/25/2023 8:33 AM EDT Respiratory Rate - - Oxygen Saturation - - Inhaled Oxygen Concentration - - Weight 63.5 kg (140 lb 1.6 oz) 09/25/2023 8:33 A M EDT Height 172 cm (5' 7.72") 09/25/2023 8:33 AM EDT Body Mass Index 21.48 09/25/2023 8:33 AM EDT documented in this encounter Patient Instructions * Patient Instructions* Mauro Thornton PA-C - 09/25/2023 8:52 AM EDT Flonase nasal spray two sprays in each nostril daily. documented in this encounter Progress Notes * Mauro Thornton PA-C - 09/25/2023 8:38 AM EDT 09/25/2023 HISTORY OF PRESENT ILLNESS This 78 year old YO female is seen at the request of Ant Fatima MD for the evaluation ofcerumen impaction b/l. Previously seen in the department in 2021 with Betty Spangler PA-C. She reports fullness in both ears and occasionally will get cracking in right ear when chewing or yawning. She does have some nasal congestion and allergy symptoms presently. Uses saline spray. No recent change in hearing, otalgia, or otorrhea. No hx of otologic surgeries. 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 High risk for fracture due to osteoporosis by DEXA scan M81.0 Elevated ferritin R79.89 Hx of nonmelanoma skin cancer Z85.828 Paroxysmal SVT (supraventricular tachycardia) (HCC) I47.10 Mixed hyperlipidemia E78.2 Mild tricuspid regurgitation I07.1 Aortic valve sclerosis I35.8 Mild mitral regurgitation I34.0 PAF (paroxysmal atrial fibrillation) (HCC) I48.0 Past Medical History: Diagnosis Date Aortic valve sclerosis 05/08/2021 Benign neoplasm of colon adenomatous polyp, sees GI in [place] Disorder of bone and cartilage osteopenia, improved [...] History: Procedure Laterality Date COLONOSCOPY, DIAGNOSTIC (RECTUM) 07/24/09 for f/u on polyps, next due in 07/2014 COLONOSCOPY, DIAGNOSTIC (RECTUM) 05/09/2017 normal bx/COLONOSCOPY FLEXIBLE PROXIMAL DIAGNOSTIC performed by Della Price DO at [facility] COLONOSCOPY, DIAGNOSTIC (RECTUM) 03/17/2023 COLONOSCOPY FLEXIBLE PROXIMAL DIAGNOSTIC performed by Fran Guardado MD at [facility] EGD, FLEXIBLE, DIAGNOSTIC 05/09/2017 normal bx/ESOPHAGOGASTRODUODENOSCOPY (EGD), FLEXIBLE, TRANSORAL, DIAGNOSTIC performed by Della Price DO at [facility] PARTIAL HYSTERECTOMY still has cervix REMOVE CATARACT, INSERT LENS PROSTH Left 07/06/2020 LEFT EXTRACAPSULAR CATARACT REMOVAL WITH INTRAOCULAR LENS performed by Nader Valdivia MD at OR [facility] REMOVE CATARACT, INSERT LENS PROSTH Right 07/18/2020 RIGHT EXTRACAPSULAR CATARACT REMOVAL WITH INTRAOCULAR LENS performed by Nader Valdivia MD at OR [facility] REVISION OF URINARY MEATUS age 36 - had urethral abnormlaity repaired UROLOGY SURGERY PROCEDURE NEC removed an age 15 - attachment between ubbilicus and bladder Medications Current Outpatient Medications Medication Sig Dispense Refill Cholecalciferol (VITAMIN D3) 50 MCG (1999 UT) Tablet Take 1 Tablet by mouth in the morning. Biotin 1000 MCG Oral Tablet Take by mouth daily. Synthroid 50 MCG Oral Tablet TAKE 1 TABLET BY MOUTH FRIDAY, FRIDAY, AND FRIDAY AT LEAST 30 MINUTES PRIOR TO BREAKFAST OR OTHER MEDS 39 Tablet 3 Synthroid 75 MCG Oral Tablet TAKE 1 TABLET BY MOUTH EVERY FRIDAY, FRIDAY, FRIDAY AND FRIDAY ATLEAST 30 MIN PRIOR TO BREAKFAST OR OTHER MEDS 48 Tablet 3 Eliquis 5 MG Oral Tablet (Apixaban) TAKE 1 TABLET BY MOUTH IN THE MORNING AND 1 TABLET BEFORE BEDTIME 180 Tablet 3 Metoprolol Succinate ER 25 MG Oral Tablet Extended Release 24 Hour (Toprol XL) Take 0.5 Tablets by mouth in the morning. 45 Tablet 3 No current facility-administered medications for this visit. Allergies Review of patient's allergies indicates: Allergen Reactions Pollen Other (Please comment) Sneezing, congestion Family History Family History Problem Relation Age of Onset Heart Disorder Mother later in life Liver cancer Father Hemochromatosis Father No Known Problems Sister Hemochromatosis Daughter Breast Cancer No significant family history Social History Social History Tobacco Use Smoking status: Former Current packs/day: 0.00 Average packs/day: 0.1 packs/day for 15.0 years (1.5 ttl pk-yrs) Types: Cigarettes Start date: 1966 Quit date: 1981 Years since quittin.3 Smokeless tobacco: Never Tobacco comments: smoked only socially- on weekends for about 10-15 years Substance Use Topics Alcohol use: Yes Alcohol/week: 7.0 standard drinks of alcohol Types: 7 5 oz of wine per week Comment: 1 glass wine/daily Vaping/E-Cigarette Use Vaping/E-Cigarette Use Never User Vaping/E-Cigarette Substances Vaping/E-Cigarette Devices Occupational History Work: 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 PHYSICAL EXAMINATION: Vital Signs: Filed Vitals: 09/25/23 0833 Temp: 36.1 C (97 F) TempSrc: Tympanic Weight: 63.5 kg (140 lb 1.6 oz) Height: 1.72 m (5' 7.72") General: this is a healthy appearing female who appears her stated age. The patient is alert and appropriately verbally conversant without hoarseness. Face: The face was inspected and no cutaneous masses or lesions were visualized. There was no erythema or edema noted. Facial movement was symmetric without weakness. Ears: Examination of the ears revealed that the auricles were normally formed with no lesions. The external auditory canals were cleaned of any obstructing cerumen. See below procedure note. The tympanic membranes were intact and freely mobile to pneumatoscopy without perforation or significant retraction pockets. Neck: Visualization and palpation of the neck revealed no mass lesions, no thyromegaly or thyroid masses. No skin lesions or inflammatory processes were detected. The cervical musculature was normal to palpation. Lymphatics (cervical): There were no palpable lymph nodes in the posterior triangle, submandibular triangle, jugulodigastric region, or central neck. Lungs: normal respiratory effort Heart: normal rate IN ORDER TO BETTER EXAMINE THE EARS, THE PATIENT WAS EXAMINED USING THE OPERATING MICROSCOPE. FINDINGS ARE NOTED BELOW. Ears: Examination of the ears revealed that the auricles were normally formed with no lesions. The right external auditory canal was impacted with cerumen. It was removed using suction and forceps atraumatically by me. The right TM was WNL. The right middle ear space was WNL. The left external auditory canal was impacted with cerumen. It was removed using suction and forceps atraumatically by me. The left TM was WNL. The left middle ear space was WNL ASSESSMENT: 1. Bilateral impacted cerumen 2. Seasonal allergic rhinitis due to other allergic trigger 3. Bilateral sensorineural hearing loss Plan: Recommend starting flonase nasal spray daily to help with allergy symptoms. Ears cleaned today and healthy appearing. F/U in 1 year for cerumen removal, sooner PRN. Pt verbalized understanding and agrees with plan. Questions/Concerns addressed. Mauro Thornton PA-C [facility] [address] [address] 09/25/2023 10:07 AM documented in this encounter Nursing Notes * Arianne Salinas LPN - 09/25/2023 8:35 AM EDT Chief Complaint Patient presents with NEW PATIENT Patient presents today for evaluation of her ears and cerumen removal. Pt states she has fullness in her right ear. She gets a buzzing noise in her right ear at night time. She denies any ear pain mando drainage. documented in this encounter Plan of Treatment Upcoming Encounters Date Type Department Care Team (Late st Contact Info) Description 12/22/2023 2:40 PM EDT Office Visit General Internal Medicine [facility] [address] [facility] [place] [address] Ant Fatima MD [address] [facility] [place] [address] 03/01/2024 2:30 PM EDT Office Visit Dermatology [facility] [place] [address] [place] [address] Ant Hernandez MD [address] [facility] [place] [address] 09/23/2024 11:40 AM EDT Office Visit Otolaryngology [facility] [address] [place] [address] Mauro Thornton PA-C [address] [place] [address] Health Maintenance Due Date Last Done Comments [...] D LEVEL ONCE IN A LIFETIME-USE SMARTSET# [id number] Completed 06/04/2023, 05/27/2022, 06/04/2021, Additional history exists [...] this encounter Medical Devices Implanted Type Area Oil Spot Washer Device Identifier Shelf Expiration Date Model / Serial / Lot Envista Toric [id number] Se+17.5 Cyl 1.25 Implanted:Qty: 1 on 07/06/2020 by Nader Valdivia MD at OR [facility] Left: Eye [employer] 08/16/2021 [id number] / [id number] / [id number] Toric 17.5 Implanted:Qty: 1 on 07/18/2020 by Nader Valdivia MD at OR [facility] Right: Eye 08/16/2021 [id number] / [id number] / documented as of this encounter Visit Diagnoses Diagnosis Bilateral impacted cerumen- Primary Impacted cerumen Seasonal allergic rhinitis due to other allergic trigger Bilateral sensorineural hearing loss Sensorineural hearing loss, bilateral documented in this encounter Care Teams Leather Goods Maker Relationship Specialty Start Date End Date Ant Fatima MD [address] [place] [id number] PCP - General Internal Medicine 02/09/16 documented as of this encounter
--- OUTSIDE RECORDS SUMMARY | 2024-02-21 05:30 | External Medical Summary ---
Author Name Unknown Address Unknown Organization K09:[facility] [place] [place] [address] Laboratory Report Ordering Provider Test Date Status TELMA PALM 09/29/2023 09:00:19 Final Observation Date Value Abnormality Reference (Units ) Status WBC, Total 09/29/2023 09:00:19 10.38 4.00-10.8 0 (K/uL) Final RBC 09/29/2023 09:00:19 4.16 3.85-5.15 (M/uL) Final Hemoglobin 09/29/2023 09:00:19 13.3 12.0-15.3 (g/dL) Final HCT 09/29/2023 09:00:19 41.3 36.0-45.2 (%) Final MCV 09/29/2023 09:00:19 99.3 81.5-97.5 (fL) Final MCH 09/29/2023 09:00:19 32.0 27.0-34.0 (pg) Final MCHC 09/29/2023 09:00:19 32.2 32.0-36.0 (g/dL) Final RDW 09/29/2023 09:00:19 12.0 11.5-15.5 (%) Final Platelets 09/29/2023 09:00:19 259 140-400 (K /uL) Final MPV 09/29/2023 09:00:19 10.9 6.6-11.1 ( fL) Final Performing Location [facility] [place] [id number]
[2024-02-21] MEDS: MoRPHine SULFATE 4 MG/ML 1 ML CARP\\VIAL IV STA (06:25)
--- NOTE | 2024-02-21 07:32 | CT Scan Report ---
Exam(s): CT ABDOMEN + PELVIS With Contrast IV Amt: 93 ml opti 320 EXAM: CT Abdomen and Pelvis With Intravenous Contrast CLINICAL HISTORY: Reason for exam: LLQ pain, diverticulitis. TECHNIQUE: Axial computed tomography images of the abdomen and pelvis with intravenous contrast. CTDI is 14.07 mGy and DLP is 644.37 mGy-cm. Automated exposure control was utilized for the study. A dose lowering technique was utilized adhering to the principles of ALARA. CONTRAST: Patient received 93 ml opti 320 of IV contrast COMPARISON: No relevant prior studies available. FINDINGS: Lung bases: Surgical materials demonstrate lung the anterior/ventral abdominal wall. No consolidation. Heart: There is tiny pericardial effusion. ABDOMEN: Liver: Unremarkable. No mass. Gallbladder and bile ducts: Unremarkable. No calcified stones. No ductal dilation. Pancreas: Unremarkable. No mass. No ductal dilation. Spleen: Unremarkable. No splenomegaly. Adrenals: Unremarkable. No mass. Kidneys and ureters: Unremarkable. No solid mass. No hydronephrosis. Stomach and bowel: There is redundant colon. No findings to suggest significant inflammation within it. A few prominent fluid-filled small bowel loops are demonstrated within the pelvis. No obstruction. No mucosal thickening. PELVIS: Surgical change Appendix: No findings to suggest acute appendicitis. Bladder: Unremarkable. No mass. Reproductive: Postsurgical change ABDOMEN and PELVIS: Intraperitoneal space: Unremarkable. No free air. No significant fluid collection. Bones/joints: No acute fracture. No dislocation. Soft tissues: Unremarkable. Vasculature: There is some mild calcific atherosclerotic vascular disease. No abdominal aortic aneurysm. Lymph nodes: Unremarkable. No enlarged lymph nodes. IMPRESSION: Some prominent small bowel loops as described probable region of ileus within the pelvis early or partial small bowel obstruction not entirely excluded additional chronic change. Electronically signed by: Dago Cooper MD 02/21/24 07:31 AM
--- NOTE | 2024-02-21 07:36 | Emergency Department Note ---
ED Visit Note I was consulted by the Advanced Practice Provider. I personally made/approved the management plan and take responsibility for the patient management. I performed a substantive portion of the visit. This includes the aspects of: -History/Physical -MDM] .
--- NOTE | 2024-02-21 07:48 | History & Physical Report ---
Date of Service February 21, 2024 Assessment & Plan (1) Partial small bowel obstruction: Plan: Partial small bowel obstruction H/O hysterectomy, appendectomy --CT ABD:Some prominent small bowel loops as described probable region of ileus within the pelvis early or partial small bowel obstruction not entirely excluded additional chronic change. --KUB: No change in multiple loops of mildly dilated small bowel suggestive of a partial small bowel obstruction. NPO for for now IV fluids, Pain control, antiemetics Surgery consulted KUB in AM Leukocytosis Likely situational No clear source of infection Urine analysis not suggestive of UTI Monitor CBC Paroxysmal atrial fibrillation Currently in sinus Continue metoprolol Hold Eliquis for anticoagulation for now Hypothyroidism Continue levothyroxine DVT Px: SQ heparin for now Resume Eliquis as able CODE STATUS Full code Disposition Expected discharge home in stable History of Present Illness Chief Complaint: Abdominal pain Primary Care Provider: Ant Fatima MD Patient is a 79-year-old female with history of paroxysmal atrial fibrillation on chronic anticoagulation with Eliquis, hypothyroidism and no other significant past medical history presents with history of sudden onset of abdominal pain associated with nausea, chills which started at around 2 AM this morning. Patient states having several small bowel movements but no resolution of abdominal pain and so came to ED for further evaluation. She states having hysterectomy, appendectomy many years ago but denies any similar episodes of bowel obstruction in the past. Her last colonoscopy was in 2022 which was normal per patient. She states that the abdominal pain is predominantly left upper quadrant radiating to the back intermittently. She noted to have elevated heart rate and so took her metoprolol this morning prior to arrival to ED. Her last Eliquis dose was yesterday night. Denies any history of chest pain, dyspnea, dizziness, cough, fever, headache, change in vision, vomiting, blood in stools, recent change in medications . Allergies Allergy/AdvReac Type Severity Reaction Status Date / Time No Known Allergies Allergy Unverified 04/27/15 09:28 Home Medications Medication Instructions Recorded Confirmed Type apixaban 5 mg tablet (Eliquis) 5 mg PO BID 02/21/24 02/21/24 History levothyroxine 50 mcg tablet 50 mcg PO UD 02/21/24 02/21/24 History (Synthroid) levothyroxine 75 mcg tablet 75 mcg PO UD 02/21/24 02/21/24 History (Synthroid) metoprolol succinate 25 mg 12.5 mg PO DAILY 02/21/24 02/21/24 History tablet,extended release 24 hr Past Med/Surg History Problem List (Updated 02/21/24 @ 13:20 by Carlos Mcdonald MD) Partial small bowel obstruction Nondisplaced fracture of fifth left metatarsal bone (Acute) Dehydration (Acute) Hypokalemia (Acute) Nausea vomiting and diarrhea (Acute) Vomiting and diarrhea (Acute) Family History Mother Heart disease Social History Smoking Status: Former smoker Hx Alcohol Use: Yes Preferred Language: Eritrean Feels Safe at Home: Yes Review of Systems Review of Systems: All systems reviewed & are unremarkable except as noted in Subjective Physical Exam Physical Exam: Physical Exam: Vitals signs as noted above General Appearance: Thin, frail, no apparent distress Head: normocephalic, Atraumatic Eyes: normal inspection, EOMI Neck: supple, Trachea midline Respiratory/Chest: Normal breath sounds, CTA, No accessory muscle use Cardiovascular: S1, S2, No murmur Abdomen/GI:Soft, LUQ tender, Bowel sounds present, no guarding or rigidity Extremities/Musculoskeletal:normal inspection, no edema Neurologic/Psych:AAOX3, grossly no focal neurological deficits Skin: normal color, warm Results & Data Results & Data Vital Signs (Past 12 Hours) Vital Signs Temp Pulse Pulse Resp BP BP Pulse Ox 02/21/24 05:30 83 18 160/100 H 98 02/21/24 04:02 36.8 C 82 16 160/94 H 98 O2 Del Method 02/21/24 05:30 Room Air 02/21/24 04:02 Room Air Laboratory Results Short CBC 02/21/24 Range/Units 04:38 WBC 14.02 H (4.8-10.8) K/ul Hgb 14.6 (12.0-16.0) g/dl Hct 44.5 (37.0-47.0) % Plt Count 263 (130-400) K/uL BMP 02/21/24 04:38 Sodium 138 Potassium 3.7 Chloride 102 Carbon Dioxide 27 BUN 25 H Creatinine 0.89 Glucose 108 H Calcium 10.3 Liver Function 02/21/24 Range/Units 04:38 Total Bilirubin 0.6 (0.2-1.0) mg/dl AST 17 (13-39) U/L ALT 12 (7-52) U/L Alkaline Phosphatase 51 (34-104) U/L Albumin 4.8 (3.4-5.0) gm/dl Urine 02/21/24 Range/Units 10:18 Urine Color Yellow Urine Appearance Clear (Clear) Urine pH 5.0 (4.5-7.5) Ur Specific [place] > 1.045 H (1.000-1.030) Urine Protein Negative (Negative) Urine Glucose (UA) Negative (Negative) Diagnostic Findings --CT abd:Some prominent small bowel loops as described probable region of ileus within the pelvis early or partial small bowel obstruction not entirely excluded additional chronic change. ECG Additional Comments: EKG: pending, in Sinus on monitor
[2024-02-21 10:59] LABS: Appearance Urine Clear (Clear); Bacteria Urine Automated None Seen (None Seen); Bilirubin Urine Negative (Negative); Blood Urine 1+ (Negative); Cast Urine Automated 0-2 /lpf (0-2); Color Urine Yellow; Glucose Urine UA Negative (Negative); Ketones Urine 1+ (Negative); Leukocyte Esterase Urine Negative (Negative); Nitrite Urine Negative (Negative); Protein Urine Negative (Negative); RBC Urine Automated 0-2 /hpf (0-2); Specific Gravity Urine > 1.045 (1.000-1.030); Urobilinogen Urine Negative (Negative); WBC Urine Automated 0-5 /hpf (0-5)
[2024-02-21] MEDS ORDERED: LABETALOL HCL IV 5 MG/ML 20ML IV PRN (11:13)
[2024-02-21] MEDS: MoRPHine SULFATE 2 MG/ML CARP IV PRN (11:41)
[2024-02-21] MEDS: ONDANSETRON INJ 2 MG/ML 2 ML VIAL IV PRN (11:41)
[2024-02-21] MEDS: LACTATED RINGER'S 1,000 ML IV SCH (11:51)
[2024-02-21] MEDS: LEVOTHYROXINE SODIUM 75 MCG TABLET PO SCH (12:33)
[2024-02-21] MEDS: METOPROLOL SUCC 25MG EXT REL TAB PO SCH (12:33)
--- NOTE | 2024-02-21 12:36 | XRay Report ---
KUB CLINICAL HISTORY: Small bowel obstruction. COMPARISON STUDY: CT of the abdomen and pelvis performed earlier today. FINDINGS: Multiple mildly dilated loops of small bowel are noted. Small bowel dilatation is similar t o CT. There is no evidence for free air on supine exam. Contrast within the bladder is from recent co ntrast-enhanced CT. IMPRESSION: No change in multiple loops of mildly dilated small bowel suggestive of a partial small bowel obstruction. ACT 112: Negative or not required by law. Electronically signed by: Don Dickerson M.D. 02/21/2024 12:35 PM
[2024-02-21] MEDS: PROMETHAZINE 6.25 MG/50.25 ML BAG IV ONE (16:08)
[2024-02-21] MEDS: ACETAMINOPHEN 1,000 MG/100 ML VIAL IV PRN (17:38)
[2024-02-21] MEDS: HEPARIN SOD 5,000 UNIT/0.5 ML VIAL SQ SCH (21:05)
--- NOTE | 2024-02-21 21:13 | Surgery Consultation ---
Date of Consultation February 21, 2024 Assessment & Plan (1) Partial small bowel obstruction: Patient seen and evaluated early this evening. She states her abdominal pain and nausea have improved. She denies having a BM or passing flatus since admission but feels as though she could. Currently not requiring an NGT and she is tolerating ice chips. CT imaging and KUB reviewed, plans for repeat KUB tomorrow morning as well. Will aloso continue to trend WBC as there is no clear source leukocytosis at this time. On exam her abdomen is soft without signs of peritonitis that would warrant emergent surgical intervention. We will continue to treat patient conservatively at this time. Continue medical management per primary team, surgery will continue to follow. Supervising Physician Co-Signing Physician Notes As per physician boilermaker's assistant No previous history of diverticular issues colonoscopy few years ago did not reveal diverticular problem according to the patient The patient describes pain in his left lower quadrant going to the back when initially started at this time no residual pain noted feels better No flatus since admission no bowel movement no nausea The abdomen slightly distended without localized tenderness At this point we will get a KUB this morning to follow-up on partial obstruction History of Present Illness Reason for Consultation: SBO History of Present Illness Patient is a 79-year-old female who presented to the hospital due to acute onset of abdominal pain that started around 2AM this morning. Patient states she did not have any episodes of vomiting however has had ongoing nausea since the pain started. The patient did have a few small BMs and states she felt somewhat constipated. States her pain is generalized however is mostly in the left upper and lower quadrants. Due to her symptoms not resolving she came to the ED for further evaluation. Upon workup she was found have a partial SBO. She has been admitted to the medical service and the surgery team has been consulted. Patient does have a past surgical history of a total hysterectomy and an appendectomy. S he has had previous colonoscopies with her last being in 2022 and states there were no abnormal findings at that time. She otherwise denies any CP,SOB, or new onset of fevers or chills with the onset of her symptoms. The patient was seen and evaluated this evening. She is resting comfortably in bed, NAD, VSS. Patient denies any recent nausea or vomiting and currently is not requiring an NGT. Patient is tolerating ice chips for now. States she still has some abdominal pain that is mostly on the left side however this has improved since admission early today. Patient's WBC was noted to be at 14, otherwise all other labs are wnl. Allergies Allergy/AdvReac Type Severity Reaction Status Date / Time No Known Allergies Allergy Unverified 04/27/15 09:28 Home Medications Medication Instructions Recorded Confirmed Type apixaban 5 mg tablet (Eliquis) 5 mg PO BID 02/21/24 02/21/24 History levothyroxine 50 mcg tablet 50 mcg PO UD 02/21/24 02/21/24 History (Synthroid) levothyroxine 75 mcg tablet 75 mcg PO UD 02/21/24 02/21/24 History (Synthroid) metoprolol succinate 25 mg 12.5 mg PO DAILY 02/21/24 02/21/24 History tablet,extended release 24 hr Patient History Family History Mother Heart disease Social History Smoking Status: Former smoker Hx Alcohol Use: Yes Alcohol type: wine Hx Substance Use: No Preferred Language: Uz[place] 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 Otherwise t here is no rebound, guarding, hernias or peritonitis. Skin: no rashes, warm and dry Psychiatric: A+Ox3, euthymic affect Results & Data Vital Signs (Past 12 Hours) Vital Signs Temp Pulse Pulse Resp BP BP BP 02/21/24 18:31 82 02/21/24 18:24 36.9 C 82 20 153/77 H 02/21/24 16:55 77 22 158/84 H 02/21/24 16:13 72 16 169/94 H 02/21/24 14:25 70 18 169/94 H 02/21/24 11:45 68 16 140/87 02/21/24 10:15 66 21 148/79 H Pulse Ox O2 Del Method 02/21/24 18:31 02/21/24 18:24 99 Room Air 02/21/24 16:55 97 Room Air 02/21/24 16:13 95 Room Air 02/21/24 14:25 98 Room Air 02/21/24 11:45 97 Room Air 02/21/24 10:15 98 Room Air Diagnostic Findings 02/21/2024: CT Abdomen/Pelvis CLINICAL HISTORY: Reason for exam: LLQ pain, diverticulitis. TECHNIQUE: Axial computed tomography images of the abdomen and pelvis with intravenous contrast. CTDI is 14.07 mGy and DLP is 644.37 mGy-cm. Automated exposure control was utilized for the study. A dose lowering technique was utilized adhering to the principles of ALARA. CONTRAST: Patient received 93 ml opti 320 of IV contrast COMPARISON: No relevant prior studies available. FINDINGS: Lung bases: Surgical materials demonstrate lung the anterior/ventral abdominal wall. No consolidation. Heart: There is tiny pericardial effusion. ABDOMEN: Liver: Unremarkable. No mass. Gallbladder and bile ducts: Unremarkable. No calcified stones. No ductal dilation. Pancreas: Unremarkable. No mass. No ductal dilation. Spleen: Unremarkable. No splenomegaly. Adrenals: Unremarkable. No mass. Kidneys and ureters: Unremarkable. No solid mass. No hydronephrosis. Stomach and bowel: There is redundant colon. No findings to suggest significant inflammation within it. A few prominent fluid-filled small bowel loops are demonstrated within the pelvis. No obstruction. No mucosal thickening. PELVIS: Surgical change Appendix: No findings to suggest acute appendicitis. Bladder: Unremarkable. No mass. Reproductive: Postsurgical change ABDOMEN and PELVIS: Intraperitoneal space: Unremarkable. No free air. No significant fluid collection. Bones/joints: No acute fracture. No dislocation. Soft tissues: Unremarkable. Vasculature: There is some mild calcific atherosclerotic vascular disease. No abdominal aortic aneurysm. Lymph nodes: Unremarkable. No enlarged lymph nodes. IMPRESSION: Some prominent small bowel loops as described probable region of ileus within the pelvis early or partial small bowel obstruction not entirely excluded additional chronic change. 02/21/2024: KUB CLINICAL HISTORY: Small bowel obstruction. COMPARISON STUDY: CT of the abdomen and pelvis performed earlier today. FINDINGS: Multiple mildly dilated loops of small bowel are noted. Small bowel dilatation is similar to CT. There is no evidence for free air on supine exam. Contrast within the bladder is from recent contrast-enhanced CT. IMPRESSION: No change in multiple loops of mildly dilated small bowel suggestive of a partial small bowel obstruction. PG Care Time/CCT Total # of Minutes Spent Total Time Spent with Patient: Total time spent is greater than 50% in coordination of care (as documented) at patient's floor/unit and/or counseling patient: Coding Level of Care Code 86016 INT INP/OBS CARE 2/55MIN Diagnoses Partial small bowel obstruction K56.600
[2024-02-22 06:03] LABS: Hematocrit (blood only) 38.5 % (37.0-47.0); Hemoglobin 12.7 g/dl (12.0-16.0); Mean Corpuscular Hemoglobin 31.3 pg (25.0-34.0); Mean Corpuscular Volume 94.8 fL (80.0-100.0); Mean Platelet Volume 10.8 fL (9.4-12.4); Platelet Count 243 K/uL (130-400); RDW Coefficient of Variation 11.8 % (11.5-14.5); RDW Standard Deviation 40.3 fL (36.4-46.3); Red Blood Count 4.06 M/uL (4.20-5.40); White Blood Count 13.41 K/ul (4.8-10.8)
[2024-02-22 06:15] LABS: BUN Creatinine Ratio 21.7 (10-20); Calcium 9.2 mg/dl (8.6-10.3); Creatinine Clr Calc Pharmacy 67.4 ml/min; Magnesium 1.8 mg/dl (1.7-2.4); Potassium 3.9 mmol/L (3.5-5.1)
--- NOTE | 2024-02-22 09:04 | XRay Report ---
KUB CLINICAL HISTORY: SBO COMPARISON STUDY: CT of the abdomen and pelvis and KUB February 21, 2024. FINDINGS: Multiple loops of mildly dilated small bowel measure up to 3.3 cm in caliber, similar to pr ior exam. No evidence for free air supine exam. There is a moderate amount of stool within the right colon. IMPRESSION: No change in multiple loops of mildly dilated small bowel suggestive of a partial small bowel obstruction. ACT 112: Negative or not required by law. Electronically signed by: Don Dickerson M.D. 02/22/2024 9:01 AM
--- NOTE | 2024-02-22 09:24 | Surgery Progress Note ---
Date of Service February 22, 2024 Assessment & Plan (1) Partial small bowel obstruction: Plan: Patient seen and examined with Dr. Taylor. Abdominal pain improved from yesterday. Denies nausea. KUB ordered and reviewed- essentially unchanged from yesterday. Will consider SBFT tomorrow. Would recommend keeping patient NPO at this time. No plans for surgical intervention, will continue conservative measures. Admission and Anticipated Discharge Date Admission Date: February 21, 2024 Supervising Physician Co-Signing Physician Notes As per Dea Sagastume physician transition assistant Subjective Jason is sitting at bedside in chair. She reports that she is feeling much better than when she came into the hospital yesterday. She states that the pain that brought her into the hospital began very suddenly. She has never had pain like this before. She does have prior surgical history- hysterectomy and appendectomy. She denies any nausea or vomiting. Review of Systems Review of Systems: All systems reviewed & are unremarkable except as noted in HPI & below Physical Exam Constitutional: WD/WN, vitals as above Respiratory: normal respiratory effort, lungs clear to auscultation Cardiovascular: RRR, no murmur, no edema Gastrointestinal (Abdomen): Abdomen is soft, nondistended, mild TTP over the mid to LLQ region. Otherwise there is no rebound, guarding, hernias or peritonitis. Skin: no rashes, warm and dry Psychiatric: A+Ox3, euthymic affect Results & Data Vital Signs (Past 12 Hours) Vital Signs Temp Pulse Pulse Resp BP Pulse Ox O2 Del Method 02/22/24 07:42 36.5 C 96 H 18 157/74 H 95 Room Air 02/22/24 07:12 77 02/22/24 02:24 36.8 C 82 16 145/72 H 96 Room Air 02/22/24 01:17 76 02/21/24 22:24 36.9 C 79 16 147/70 H 96 Room Air PG Care Time/CCT Total # of Minutes Spent Total Time Spent with Patient: Total time spent is greater than 50% in coordination of care (as documented) at patient's floor/unit and/or counseling patient: Coding Level of Care Code 79609 SUB INP/OBS CARE 2/35MIN Diagnoses Partial small bowel obstruction K56.600
--- NOTE | 2024-02-22 13:51 | Electrocardiogram Report ---
Test Reason : Blood Pressure : */* mmHG Vent. Rate : 74 BPM Atrial Rate : 74 BPM P-R Int : 162 ms QRS Dur : 92 ms QT Int : 410 ms P-R-T Axes : 81 74 73 degrees QTcB Int : 455 ms Normal sinus rhythm Normal ECG When compared with ECG of 04-Sep-2014 01:59, No significant change was found Confirmed by Lucien Levy ([id number]) on 02/22/2024 1:50:57 PM Referred By: REFERRED SELF Confirmed By: Lucien Levy
--- NOTE | 2024-02-22 15:51 | Hospitalist Progress Note ---
Date of Service February 22, 2024 Assessment & Plan (1) Partial small bowel obstruction: Plan: Partial small bowel obstruction H/O hysterectomy, appendectomy --CT ABD:Some prominent small bowel loops as described probable region of ileus within the pelvis early or partial small bowel obstruction not entirely excluded additional chronic change. --KUB: No change in multiple loops of mildly dilated small bowel suggestive of a partial small bowel obstruction. NPO for for now IV fluids, Pain control, antiemetics Appreciate surgery input Continue conservative management May consider small bowel follow-through tomorrow per surgery Will repeat KUB tomorrow Leukocytosis Likely situational No clear source of infection Urine analysis not suggestive of UTI Monitor CBC Paroxysmal atrial fibrillation Currently in sinus Continue metoprolol Hold Eliquis for anticoagulation for now Hypothyroidism Continue levothyroxine DVT Px: SQ heparin for now Resume Eliquis as able CODE STATUS Full code Disposition Expect to discharge home in stable Admission and Anticipated Discharge Date Admission Date: February 21, 2024 Subjective Patient is seen and examined at bedside Abdominal pain much improved Still has nausea but no vomiting Had a small bowel movement this morning patient Denies any chest pain, dyspnea, dizziness Review of Systems Review of Systems: All systems reviewed & are unremarkable except as noted in Subjective Physical Exam Physical Exam: Physical Exam: Vitals signs as noted above General Appearance: Thin, frail, no apparent distress Head: normocephalic, Atraumatic Eyes: normal inspection, EOMI Neck: supple, Trachea midline Respiratory/Chest: Normal breath sounds, CTA, No accessory muscle use Cardiovascular: S1, S2, No murmur Abdomen/GI:Soft, mild LUQ tender, Bowel sounds present, no guarding or rigidity Extremities/Musculoskeletal:normal inspection, no edema Neurologic/Psych:AAOX3, grossly no focal neurological deficits Skin: normal color, warm Results & Data Results & Data Vital Signs (Past 12 Hours) Vital Signs Temp Pulse Pulse Resp BP BP Pulse Ox 02/22/24 13:43 74 02/22/24 11:15 36.6 C 75 18 166/74 H 97 02/22/24 07:42 36.5 C 96 H 18 157/74 H 95 02/22/24 07:12 77 O2 Del Method 02/22/24 13:43 02/22/24 11:15 Room Air 02/22/24 07:42 Room Air 02/22/24 07:12 Laboratory Results Short CBC 02/22/24 Range/Units 05:19 WBC 13.41 H (4.8-10.8) K/ul Hgb 12.7 (12.0-16.0) g/dl Hct 38.5 (37.0-47.0) % Plt Count 243 (130-400) K/uL BMP 02/22/24 05:19 Sodium 135 L Potassium 3.9 Chloride 103 Carbon Dioxide 25 BUN 15 Creatinine 0.69 Glucose 104 H Calcium 9.2
[2024-02-23] MEDS: LEVOTHYROXINE SODIUM 50 MCG TABLET PO SCH (05:35)
[2024-02-23 06:08] LABS: Hematocrit (blood only) 38.9 % (37.0-47.0); Mean Corpuscular Hemoglobin 31.5 pg (25.0-34.0); Mean Corpuscular Hgb Conc 33.4 g/dL (32.0-36.0); Mean Corpuscular Volume 94.2 fL (80.0-100.0); Mean Platelet Volume 10.5 fL (9.4-12.4); Platelet Count 262 K/uL (130-400); RDW Coefficient of Variation 11.5 % (11.5-14.5); RDW Standard Deviation 39.8 fL (36.4-46.3); Red Blood Count 4.13 M/uL (4.20-5.40); White Blood Count 13.56 K/ul (4.8-10.8)
[2024-02-23 06:19] LABS: BUN Creatinine Ratio 16.7 (10-20); Creatinine Clr Calc Pharmacy 64.6 ml/min; Magnesium 1.9 mg/dl (1.7-2.4); Potassium 3.5 mmol/L (3.5-5.1)
--- NOTE | 2024-02-23 07:25 | Surgery Progress Note ---
Date of Service February 23, 2024 Assessment & Plan Admission and Anticipated Discharge Date Admission Date: February 21, 2024 Results & Data Vital Signs (Past 12 Hours) Vital Signs Temp Pulse Pulse Resp BP Pulse Ox O2 Del Method 02/23/24 07:00 68 02/23/24 03:28 36.5 C 76 18 120/64 96 Room Air 02/23/24 00:06 75 02/22/24 22:19 36.8 C 77 16 154/74 H 95 Room Air
--- NOTE | 2024-02-23 10:26 | Surgery Progress Note ---
Date of Service February 23, 2024 Assessment & Plan (1) Partial small bowel obstruction: Plan: Discussed with the patient we will schedule for upper GI series with small bowel follow-through Admission and Anticipated Discharge Date Admission Date: February 21, 2024 Subjective Had a very small bowel movement Physical Exam Physical Exam: Abdomen still slightly distended no localized tenderness Results & Data Vital Signs (Past 12 Hours) Vital Signs Temp Pulse Pulse Resp BP Pulse Ox O2 Del Method 02/23/24 10:00 Room Air 02/23/24 07:41 36.7 C 68 18 135/82 95 Room Air 02/23/24 07:00 68 02/23/24 03:28 36.5 C 76 18 120/64 96 Room Air 02/23/24 00:06 75
--- NOTE | 2024-02-23 15:07 | Hospitalist Progress Note ---
Date of Service February 23, 2024 Assessment & Plan (1) Partial small bowel obstruction: Plan: Partial small bowel obstruction H/O hysterectomy, appendectomy --CT ABD:Some prominent small bowel loops as described probable region of ileus within the pelvis early or partial small bowel obstruction not entirely excluded additional chronic change. --KUB: No change in multiple loops of mildly dilated small bowel suggestive of a partial small bowel obstruction. NPO for for now IV fluids, Pain control, antiemetics Appreciate surgery input Continue conservative management Had small bowel follow-through today Started on liquid diet Leukocytosis--chronic per patient Likely situational No clear source of infection Urine analysis not suggestive of UTI Monitor CBC Follows with hematology as outpatient Paroxysmal atrial fibrillation Currently in sinus Continue metoprolol Hold Eliquis for anticoagulation for now Hypothyroidism Continue levothyroxine DVT Px: SQ heparin for now Resume Eliquis as able CODE STATUS Full code Disposition Expect to discharge home in stable Admission and Anticipated Discharge Date Admission Date: February 21, 2024 Subjective Patient is seen and examined at bedside Had several bowel movements after small bowel follow-through Patient denies any nausea, vomiting, abdominal pain Family at bedside Denies any chest pain, dyspnea, dizziness Review of Systems Review of Systems: All systems reviewed & are unremarkable except as noted in Subjective Physical Exam Physical Exam: Physical Exam: Vitals signs as noted above General Appearance: Thin, frail, no apparent distress Head: normocephalic, Atraumatic Eyes: normal inspection, EOMI Neck: supple, Trachea midline Respiratory/Chest: Normal breath sounds, CTA, No accessory muscle use Cardiovascular: S1, S2, No murmur Abdomen/GI:Soft, non tender, Bowel sounds present, no guarding or rigidity Extremities/Musculoskeletal:normal inspection, no edema Neurologic/Psych:AAOX3, grossly no focal neurological deficits Skin: normal color, warm Results & Data Results & Data Vital Signs (Past 12 Hours) Vital Signs Temp Pulse Pulse Resp BP Pulse Ox O2 Del Method 02/23/24 14:34 62 02/23/24 11:29 36.5 C 65 18 124/74 94 Room Air 02/23/24 10:00 Room Air 02/23/24 07:41 36.7 C 68 18 135/82 95 Room Air 02/23/24 07:00 68 02/23/24 03:28 36.5 C 76 18 120/64 96 Room Air Laboratory Results Short CBC 02/23/24 Range/Units 05:38 WBC 13.56 H (4.8-10.8) K/ul Hgb 13.0 (12.0-16.0) g/dl Hct 38.9 (37.0-47.0) % Plt Count 262 (130-400) K/uL BMP 02/23/24 05:38 Sodium 136 Potassium 3.5 Chloride 101 Carbon Dioxide 27 BUN 12 Creatinine 0.72 Glucose 93 Calcium 9.0
--- NOTE | 2024-02-23 17:36 | Fluoroscopy Report ---
[place] small bowel follow through CLINICAL HISTORY: partial bowel obstruction TECHNIQUE: Gaming Cashier images were obtained. The patient drank barium followed by serial abdominal xray [facility]. Comparison: Comparison is made to abdomen radiograph 02/22/2024 FINDINGS: Small bowel loops are normal in caliber and position. The terminal ileum was visualized and appeared grossly unremarkable. IMPRESSION: Normal small bowel follow through. ACT 112: Negative or not required by law. Electronically signed by: Onur Nguyen M.D. 02/23/2024 5:34 PM
--- NOTE | 2024-02-24 00:02 | Communication Note ---
Date of Service: February 24, 2024 Patient with uncontrolled rapid A-fib despite 2 doses of IV metoprolol and digoxin. Patient complaining of palpitations without other symptoms as per RN. Transfer to PCU for med/tele to facilitate administration of other chronotropic agents.
[2024-02-24] MEDS: METOPROLOL TARTRATE 1 MG/ML VIAL IV STA ×2 (00:06→01:47)
[2024-02-24] MEDS: MAGNESIUM SULFATE / D5W 1 GM/100 ML BAG IV ONE (00:09)
[2024-02-24] MEDS: POTASSIUM CHLORIDE / WTR 10 MEQ/100 ML PLCT IV SCH (00:11)
[2024-02-24 00:43] LABS: Thyroid Stimulating Hormone 1.508 uIu/ml (0.300-4.500)
[2024-02-24] MEDS: POTASSIUM CHLORIDE PWD 20 MEQ PACK PO STA (00:47)
[2024-02-24] MEDS: DIGOXIN 250 MCG in SYRINGE 9 ML IV STA ×2 (00:57→02:47)
--- NOTE | 2024-02-24 06:27 | Surgery Progress Note ---
Date of Service February 24, 2024 Assessment & Plan (1) Partial small bowel obstruction: Plan: Discussed the upper GI with small bowel follow-through with the patient stating that he has no evidence of any obstruction and certainly in the contrast may have helped her moving her bowels At this point I recommended the patient low fiber diet until improved bowel movements normalize that time go to a high-fiber diet Will be discharged to the medical service Surgery will sign off Follow-up with us unless new issues arise Admission and Anticipated Discharge Date Admission Date: February 21, 2024 Subjective Patient is feeling better this morning and her heart is not racing as it was last night No abdominal complaints states her bowels are moving Physical Exam Physical Exam: Alert coherent in no distress The abdomen completely benign Results & Data Vital Signs (Past 12 Hours) Vital Signs Temp Pulse Pulse Resp BP BP BP 02/24/24 03:10 74 135/78 02/24/24 03:01 74 02/24/24 02:47 129 H 02/24/24 02:30 02/24/24 02:29 36.6 C 132 H 13 117/78 02/24/24 02:15 122 H 02/24/24 02:12 119/76 02/24/24 02:12 128 H 18 119/76 02/24/24 01:47 140 H 122/72 02/24/24 01:30 140 H 122/72 02/24/24 00:57 142 H 02/24/24 00:36 02/24/24 00:34 142 H 104/66 02/24/24 00:06 167 H 150/79 H 02/23/24 23:55 02/23/24 23:39 79 02/23/24 23:00 36.7 C 71 18 128/68 02/23/24 20:00 37.0 C 76 18 161/75 H Pulse Ox O2 Del Method O2 Flow Rate 02/24/24 03:10 02/24/24 03:01 02/24/24 02:47 02/24/24 02:30 Nasal Cannula 2 02/24/24 02:29 97 Nasal Cannula 3 02/24/24 02:15 02/24/24 02:12 02/24/24 02:12 97 Nasal Cannula 2 02/24/24 01:47 02/24/24 01:30 97 Nasal Cannula 2 02/24/24 00:57 02/24/24 00:36 97 Nasal Cannula 2 02/24/24 00:34 02/24/24 00:06 02/23/24 23:55 92 Room Air 02/23/24 23:39 02/23/24 23:00 95 Room Air 02/23/24 20:00 97 Room Air
[2024-02-24 07:16] VITALS: RESP 18
[2024-02-24 07:41] LABS: BUN Creatinine Ratio 21.2 (10-20); Basophils # (auto) 0.05 K/uL (0.00-0.20); Basophils % (auto) 0.3 %; Calcium 8.7 mg/dl (8.6-10.3); Creatinine Clr Calc Pharmacy 70.4 ml/min; Eosinophils # (auto) 0.02 K/uL (0.00-0.50); Eosinophils % (auto) 0.1 %; Hematocrit (blood only) 37.1 % (37.0-47.0); Hemoglobin 12.4 g/dl (12.0-16.0); Immature Granulocytes # (auto) 0.05 K/uL (0.01-0.20); Immature Granulocytes % (auto) 0.3 %; Lymphocytes # (auto) 4.69 K/uL (1.20-3.40); Lymphocytes % (auto) 32.7 %; Mean Corpuscular Hemoglobin 31.4 pg (25.0-34.0); Mean Corpuscular Hgb Conc 33.4 g/dL (32.0-36.0); Mean Corpuscular Volume 93.9 fL (80.0-100.0); Mean Platelet Volume 10.5 fL (9.4-12.4); Monocytes % (auto) 9.8 %; Neutrophils # (auto) 8.14 K/uL (1.40-6.50); Neutrophils % (auto) 56.8 %; Platelet Count 226 K/uL (130-400); RDW Coefficient of Variation 11.7 % (11.5-14.5); RDW Standard Deviation 40.1 fL (36.4-46.3); Red Blood Count 3.95 M/uL (4.20-5.40); White Blood Count 14.35 K/ul (4.8-10.8)
--- NOTE | 2024-02-24 07:42 | XRay Report ---
KUB HISTORY: Acute onset abdominal pain with partial bowel obstruction Partial small bowel obstruction COMPARISON: Small bowel follow-through 02/23/2024, CT 02/21/2024 FINDINGS: Air-filled loops of large and small bowel with borderline small bowel dilation redemonstrat ed. No residual enteric contrast identified. No renal calculi. No ureteral calculi. No pneumoperitone um or pneumatosis. No fracture. IMPRESSION: Air-filled loops of large and small bowel with borderline small bowel dilation is similar to prior. N o residual enteric contrast identified from yesterday's small bowel follow-through study to suggest o bstruction. ACT 112: Negative or not required by law. The above report was generated using voice recognition software. It may contain grammatical, syntax o r spelling errors. Electronically signed by: Evangelista Caro M.D. 02/24/2024 7:40 AM
[2024-02-24] MEDS: METOPROLOL SUCC 25MG EXT REL TAB PO SCH (07:59)
--- NOTE | 2024-02-24 08:47 | Electrocardiogram Report ---
Test Reason : Blood Pressure : */* mmHG Vent. Rate : 159 BPM Atrial Rate : 197 BPM P-R Int : * ms QRS Dur : 90 ms QT Int : 280 ms P-R-T Axes : * 66 241 degrees QTcB Int : 455 ms Atrial fibrillation with rapid ventricular response Marked ST abnormality, possible inferior subendocardial injury Marked ST abnormality, possible anterolateral subendocardial injury Abnormal ECG When compared with ECG of 22-Feb-2024 11:35, Significant changes have occurred Confirmed by Gregorio Lezama ([id number]) on 02/24/2024 8:47:10 AM Referred By: REFERRED SELF Confirmed By: Gregorio Lezama
[2024-02-24] MEDS: APIXABAN 5 MG TABLET PO SCH (10:34)
--- NOTE | 2024-02-24 11:14 | Hospitalist Progress Note ---
Date of Service February 24, 2024 Assessment & Plan (1) Partial small bowel obstruction: Plan: Partial small bowel obstruction H/O hysterectomy, appendectomy --CT ABD:Some prominent small bowel loops as described probable region of ileus within the pelvis early or partial small bowel obstruction not entirely excluded additional chronic change. --KUB: No change in multiple loops of mildly dilated small bowel suggestive of a partial small bowel obstruction. received IV fluids Pain resolved Appreciate surgery input Had several BMs after small bowel follow-through Tolerated low fiber diet Plan to discharge home today Leukocytosis--chronic per patient Likely situational No clear source of infection Urine analysis not suggestive of UTI Monitor CBC Follows with hematology as outpatient A-fib RVR H/P Paroxysmal atrial fibrillation Continue metoprolol--dose increased to 25 mg daily Resume Eliquis for anticoagulation Hypothyroidism Continue levothyroxine DVT Px: Eliquis CODE STATUS Full code Disposition Home Admission and Anticipated Discharge Date Admission Date: February 21, 2024 Subjective Patient is seen and examined at bedside States feeling a lot better today Went into A-fib RVR overnight currently back in sinus Tolerating diet Palpitations resolved Denies any chest pain, dyspnea, nausea, vomiting, abdominal pain Plan to be discharged home today Family at bedside Review of Systems Review of Systems: All systems reviewed & are unremarkable except as noted in Subjective Physical Exam Physical Exam: Physical Exam: Vitals signs as noted above General Appearance: Thin, frail, no apparent distress Head: normocephalic, Atraumatic Eyes: normal inspection, EOMI Neck: supple, Trachea midline Respiratory/Chest: Normal breath sounds, CTA, No accessory muscle use Cardiovascular: S1, S2, No murmur Abdomen/GI:Soft, non tender, Bowel sounds present, no guarding or rigidity Extremities/Musculoskeletal:normal inspection, no edema Neurologic/Psych:AAOX3, grossly no focal neurological deficits Skin: normal color, warm Results & Data Results & Data Vital Signs (Past 12 Hours) Vital Signs Temp Pulse Pulse Resp BP BP BP 02/24/24 07:48 02/24/24 07:15 36.8 C 71 18 139/71 02/24/24 05:58 67 02/24/24 03:10 74 135/78 02/24/24 03:01 74 02/24/24 02:47 129 H 02/24/24 02:30 02/24/24 02:29 36.6 C 132 H 13 117/78 02/24/24 02:15 122 H 02/24/24 02:12 119/76 02/24/24 02:12 128 H 18 119/76 02/24/24 01:47 140 H 122/72 02/24/24 01:30 140 H 122/72 02/24/24 00:57 142 H 02/24/24 00:36 02/24/24 00:34 142 H 104/66 02/24/24 00:06 167 H 150/79 H 02/23/24 23:55 02/23/24 23:39 79 Pulse Ox O2 Del Method O2 Flow Rate 02/24/24 07:48 Room Air 02/24/24 07:15 94 Room Air 02/24/24 05:58 02/24/24 03:10 02/24/24 03:01 02/24/24 02:47 02/24/24 02:30 Nasal Cannula 2 02/24/24 02:29 97 Nasal Cannula 3 02/24/24 02:15 02/24/24 02:12 02/24/24 02:12 97 Nasal Cannula 2 02/24/24 01:47 02/24/24 01:30 97 Nasal Cannula 2 02/24/24 00:57 02/24/24 00:36 97 Nasal Cannula 2 02/24/24 00:34 02/24/24 00:06 02/23/24 23:55 92 Room Air 02/23/24 23:39 Laboratory Results Short CBC 02/24/24 Range/Units 07:03 WBC 14.35 H (4.8-10.8) K/ul Hgb 12.4 (12.0-16.0) g/dl Hct 37.1 (37.0-47.0) % Plt Count 226 (130-400) K/uL BMP 02/24/24 07:03 Sodium 136 Potassium 4.0 Chloride 106 Carbon Dioxide 24 BUN 14 Creatinine 0.66 Glucose 94 Calcium 8.7
[2024-02-24 11:15] VITALS: PULSE 67; TEMP 98.6; O2SAT 96
--- NOTE | 2024-02-24 11:26 | Discharge Summary ---
Date of Service February 24, 2024 Admission HPI Per Admitting Provider Patient is a 79-year-old female with history of paroxysmal atrial fibrillation on chronic anticoagulation with Eliquis, hypothyroidism and no other significant past medical history presents with history of sudden onset of abdominal pain associated with nausea, chills which started at around 2 AM this morning. Patient states having several small bowel movements but no resolution of abdominal pain and so came to ED for further evaluation. She states having hysterectomy, appendectomy many years ago but denies any similar episodes of bowel obstruction in the past. Her last colonoscopy was in 2022 which was titus l per patient. She states that the abdominal pain is predominantly left upper quadrant radiating to the back intermittently. She noted to have elevated heart rate and so took her metoprolol this morning prior to arrival to ED. Her last Eliquis dose was yesterday night. Denies any history of chest pain, dyspnea, dizziness, cough, fever, headache, change in vision, vomiting, blood in stools, recent change in medications . Admission Exam Per Admitting Provider Physical Exam: Vitals signs as noted above General Appearance: Thin, frail, no apparent distress Head: normocephalic, Atraumatic Eyes: normal inspection, EOMI Neck: supple, Trachea midline Respiratory/Chest: Normal breath sounds, CTA, No accessory muscle use Cardiovascular: S1, S2, No murmur Abdomen/GI:Soft, LUQ tender, Bowel sounds present, no guarding or rigidity Extremities/Musculoskeletal:normal inspection, no edema Neurologic/Psych:AAOX3, grossly no focal neurological deficits Skin: normal color, warm Principal Diagnosis Partial small bowel obstruction Atrial fibrillation with rapid ventricular response Chronic leukocytosis Discharge Data Allergies Allergy/AdvReac Type Severity Reaction Status Date / Time No Known Allergies Allergy Unverified 04/27/15 09:28 Consultations 02/21/24 07:48 ED Decision to Admit Stat 02/21/24 11:13 Consult General Surgery Routine Procedures Performed Laboratory Results WBC 14.35 K/ul (4.8-10.8) H 02/24/24 07:03 RBC 3.95 M/uL (4.20-5.40) L 02/24/24 07:03 Hgb 12.4 g/dl (12.0-16.0) 02/24/24 07:03 Hct 37.1 % (37.0-47.0) 02/24/24 07:03 MCV 93.9 fL (80.0-100.0) 02/24/24 07:03 MCH 31.4 pg (25.0-34.0) 02/24/24 07:03 MCHC 33.4 g/dL (32.0-36.0) 02/24/24 07:03 RDW Std Deviation 40.1 fL (36.4-46.3) 02/24/24 07:03 RDW Coeff of Susy 11.7 % (11.5-14.5) 02/24/24 07:03 Plt Count 226 K/uL (130-400) 02/24/24 07:03 MPV 10.5 fL (9.4-12.4) 02/24/24 07:03 Immature Gran % (Auto) 0.3 % 02/24/24 07:03 Neut % (Auto) 56.8 % 02/24/24 07:03 Lymph % (Auto) 32.7 % 02/24/24 07:03 [place] % (Auto) 9.8 % 02/24/24 07:03 Eos % (Auto) 0.1 % 02/24/24 07:03 Baso % (Auto) 0.3 % 02/24/24 07:03 Neut # (Auto) 8.14 K/uL (1.40-6.50) H 02/24/24 07:03 Lymph # (Auto) 4.69 K/uL (1.20-3.40) H 02/24/24 07:03 [place] # (Auto) 1.40 K/uL (0.11-0.59) H 02/24/24 07:03 Eos # (Auto) 0.02 K/uL (0.00-0.50) 02/24/24 07:03 Baso # (Auto) 0.05 K/uL (0.00-0.20) 02/24/24 07:03 Immature Gran # (Auto) 0.05 K/uL (0.01-0.20) 02/24/24 07:03 RBC Morphology Unremarkable 02/21/24 04:38 Sodium 136 mmol/L (136-145) 02/24/24 07:03 Potassium 4.0 mmol/L (3.5-5.1) 02/24/24 07:03 Chloride 106 mmol/L (98-107) 02/24/24 07:03 Carbon Dioxide 24 mmol/L (21-32) 02/24/24 07:03 Anion Gap 6 (3-11) 02/24/24 07:03 BUN 14 mg/dl (6-23) 02/24/24 07:03 Creatinine 0.66 mg/dl (0.6-1.2) 02/24/24 07:03 Est Cr Clr Drug Dosing 70.4 ml/min 02/24/24 07:03 eGFR 89.73 02/24/24 07:03 BUN/Creatinine Ratio 21.2 (10-20) H 02/24/24 07:03 Glucose 94 mg/dl (70-99(Fasting)) 02/24/24 07:03 Calcium 8.7 mg/dl (8.6-10.3) 02/24/24 07:03 Magnesium 1.9 mg/dl (1.7-2.4) 02/23/24 05:38 Total Bilirubin 0.6 mg/dl (0.2-1.0) 02/21/24 04:38 AST 17 U/L (13-39) 02/21/24 04:38 ALT 12 U/L (7-52) 02/21/24 04:38 Alkaline Phosphatase 51 U/L (34-104) 02/21/24 04:38 Total Protein 8.4 gm/dl (6.0-8.3) H 02/21/24 04:38 Albumin 4.8 gm/dl (3.4-5.0) 02/21/24 04:38 Globulin 3.6 gm/dl (2.5-4.0) 02/21/24 04:38 Albumin/Globulin Ratio 1.3 (0.9-2) 02/21/24 04:38 Lipase 45 U/L (11-82) 02/21/24 04:38 TSH 1.508 uIu/ml (0.300-4.500) 02/23/24 05:38 Urine Color Yellow 02/21/24 10:18 Urine Appearance Clear (Clear) 02/21/24 10:18 Urine pH 5.0 (4.5-7.5) 02/21/24 10:18 Ur Specific [place] > 1.045 (1.000-1.030) H 02/21/24 10:18 Urine Protein Negative (Negative) 02/21/24 10:18 Urine Glucose (UA) Negative (Negative) 02/21/24 10:18 Urine Ketones 1+ (Negative) H 02/21/24 10:18 Urine Blood 1+ (Negative) H 02/21/24 10:18 Urine Nitrite Negative (Negative) 02/21/24 10:18 Urine Bilirubin Negative (Negative) 02/21/24 10:18 Urine Urobilinogen Negative (Negative) 02/21/24 10:18 Ur Leukocyte Esterase Negative (Negative) 02/21/24 10:18 Urine WBC (Auto) 0-5 /hpf (0-5) 02/21/24 10:18 Urine RBC (Auto) 0-2 /hpf (0-2) 02/21/24 10:18 U Hyaline Cast (Auto) 0-2 /lpf (0-2) 02/21/24 10:18 U Epithel Cells (Auto) 3-5 /hpf (0-2) H 02/21/24 10:18 Urine Bacteria (Auto) None Seen (None Seen) 02/21/24 10:18 Impressions Abdomen/Pelvis CT 02/21/24 04:09 Exam(s): CT ABDOMEN + PELVIS With Contrast IV Amt: 93 ml opti 320 EXAM: CT Abdomen and Pelvis With Intravenous Contrast CLINICAL HISTORY: Reason for exam: LLQ pain, diverticulitis. TECHNIQUE: Axial computed tomography images of the abdomen and pelvis with intravenous contrast. CTDI is 14.07 mGy and DLP is 644.37 mGy-cm. Automated exposure control was utilized for the study. A dose lowering technique was utilized adhering to the principles of ALARA. CONTRAST: Patient received 93 ml opti 320 of IV contrast COMPARISON: No relevant prior studies available. FINDINGS: Lung bases: Surgical materials demonstrate lung the anterior/ventral abdominal wall. No consolidation. Heart: There is tiny pericardial effusion. ABDOMEN: Liver: Unremarkable. No mass. Gallbladder and bile ducts: Unremarkable. No calcified stones. No ductal dilation. Pancreas: Unremarkable. No mass. No ductal dilation. Spleen: Unremarkable. No splenomegaly. Adrenals: Unremarkable. No mass. Kidneys and ureters: Unremarkable. No solid mass. No hydronephrosis. Stomach and bowel: There is redundant colon. No findings to suggest significant inflammation within it. A few prominent fluid-filled small bowel loops are demonstrated within the pelvis. No obstruction. No mucosal thickening. PELVIS: Surgical change Appendix: No findings to suggest acute appendicitis. Bladder: Unremarkable. No mass. Reproductive: Postsurgical change ABDOMEN and PELVIS: Intraperitoneal space: Unremarkable. No free air. No significant fluid collection. Bones/joints: No acute fracture. No dislocation. Soft tissues: Unremarkable. Vasculature: There is some mild calcific atherosclerotic vascular disease. No abdominal aortic aneurysm. Lymph nodes: Unremarkable. No enlarged lymph nodes. IMPRESSION: Some prominent small bowel loops as described probable region of ileus within the pelvis early or partial small bowel obstruction not entirely excluded additional chronic change. Electronically signed by: Dago Cooper MD 02/21/24 07:31 AM Small Bowel X-Ray 02/23/24 07:14 [place] small bowel follow through CLINICAL HISTORY: partial bowel obstruction TECHNIQUE: Systems Auditor images were obtained. The patient drank barium followed by serial abdominal xray images. Comparison: Comparison is made to abdomen radiograph 02/22/2024 FINDINGS: Small bowel loops are normal in caliber and position. The terminal ileum was visualized and appeared grossly unremarkable. IMPRESSION: Normal small bowel follow through. ACT 112: Negative or not required by law. Electronically signed by: Onur Nguyen M.D. 02/23/2024 5:34 PM KUB X-Ray 02/24/24 07:00 KUB HISTORY: Acute onset abdominal pain with partial bowel obstruction Partial small bowel obstruction COMPARISON: Small bowel follow-through 02/23/2024, CT 02/21/2024 FINDINGS: Air-filled loops of large and small bowel with borderline small bowel dilation redemonstrated. No residual enteric contrast identified. No renal calculi. No ureteral calculi. No pneumoperitoneum or pneumatosis. No fracture. IMPRESSION: Air-filled loops of large and small bowel with borderline small bowel dilation is similar to prior. No residual enteric contrast identified from yesterday's small bowel follow-through study to suggest obstruction. ACT 112: Negative or not required by law. The above report was generated using voice recognition software. It may contain grammatical, syntax or spelling errors. Electronically signed by: Evangelista Caro M.D. 02/24/2024 7:40 AM Ordered Studies 02/21/24 04:09 CT abd pelvis IV con only Stat 10/07/24 07:14 [place] small bowel follow through Routine Hospital Course (1) Partial small bowel obstruction: Partial small bowel obstruction H/O hysterectomy, appendectomy --CT ABD:Some prominent small bowel loops as described probable region of ileus within the pelvis early or partial small bowel obstruction not entirely excluded additional chronic change. --KUB: No change in multiple loops of mildly dilated small bowel suggestive of a partial small bowel obstruction. received IV fluids Pain resolved Appreciate surgery input Had several BMs after small bowel follow-through Tolerated low fiber diet Plan to discharge home today Leukocytosis--chronic per patient Likely situational No clear source of infection Urine analysis not suggestive of UTI Monitor CBC Follows with hematology as outpatient A-fib RVR H/P Paroxysmal atrial fibrillation Continue metoprolol--dose increased to 25 mg daily Resume Eliquis for anticoagulation Hypothyroidism Continue levothyroxine DVT Px: Eliquis CODE STATUS Full code Disposition Home Total Time Total Time Spent Total Time Spent (In Minutes): 44 minutes Discharge Plan Discharge Items Patient Disposition: Home - Self-Care Reason For Visit: ILEUS Discharge Diagnosis: Partial small bowel obstruction Atrial fibrillation with rapid ventricular response Chronic leukocytosis Condition on Discharge: Good Activity: Per Instructions section Exercise/Sports: Gradually increase as tolerated Non-emergency contact: Primary Care Provider, Surgeon and Traffic Maintenance Officer Call non-emergency contact if: you have any medication questions, your symptoms worsen, your pain is concerning for you and you have a fever Follow-up/Referrals: Ant Fatima MD [Primary Care Provider] - (Date & Time 03/01/2024 1:40 PM Provider Junior Keith DO Department General Internal Medicine [facility] ) Diet: Low Fiber Addtl Attending Provider Instructions: Follow-up with your primary care physician on 03/01/2024 1:40 PM Follow-up with your knitting machine fixer in 2 to 3 weeks for reevaluation of your A-fib Follow-up with your surgeon Dr. Taylor as needed Seek immediate medical attention if your symptoms reoccur or worsen Please take all medications as instructed on discharge list below. Please call if you have any questions or problems. You can reach a [facility] hospitalist on duty at [facility] 24 hours a day by calling [phone] Pending Studies at Discharge: No Stand-Alone Forms: My [facility], Smoking Cessation Medications and DC Order Prescriptions: New metoprolol succinate 25 mg Tablet Extended Release 24 Hr 25 mg PO DAILY Qty: 30 1RF Continued levothyroxine [Synthroid] 75 mcg tablet 75 mcg PO UD Patient Comments: Friday, , Friday and Friday at least 30 minutes prior to breakfast levothyroxine [Synthroid] 50 mcg tablet 50 mcg PO UD Patient Comments: Friday, Friday, Friday 30 minutes before breakfast Eliquis 5 mg tablet 5 mg PO BID Discontinued metoprolol succinate 25 mg tablet extended release 24 hr 12.5 mg PO DAILY Discharge Orders: Discharge Order (Routine); Ordered 02/24/24 Ordered By: Carlos Mcdonald Admission Data Admit Date/Time: 02/21/24 08:00 Attending Provider: Carlos Mcdonald Admit Provider: Carlos Mcdonald Primary Care Provider: Ant Fatima Other Providers: Carlos Mcdonald; Nhan Sagastume; Wagn Red; Joycelyn Bess; Josué Marsh; Ernesto Daniel; Pina Flores; Chrystal Burr; Augusto Bryson Jr; Rell Hernández; Ludin Naylor; Elaine Lo
[2024-02-24 12:03] VITALS: BP 135/78
== END 2024-02-24 13:50 | disposition home or self-care (01) | DRG 390 ==
LOC: ED 03:59 → EDINP 08:00 → 2N 11:14 → 2S 02-24 02:22